=== PATIENT | female | born 1965 | race Caucasian/White ===

== ENCOUNTER 2023-03-30 07:37 | Outpatient (OUT) | payer BC, SELFPAY ==
[2023-03-30 08:03] LABS: Basophils Percent Auto 0.6 % (0.2-2.0); Eosinophils Absolute Auto 0.1 10^3/uL (0.0-0.7); Eosinophils Percent Auto 2.1 % (0.9-7.0); Hematocrit 38.4 % (36.0-48.0); Hemoglobin 12.8 g/dL (12.0-16.0); Immature Granulocytes Abs Auto 0.02 10^3/uL (0.00-0.03); Immature Granulocytes Pct Auto 0.3 % (0.0-0.5); Lymphocytes Percent Auto 30.7 % (20.5-60.0); Mean Corpuscular HGB Conc 33.3 g/dL (29.9-35.2); Mean Corpuscular Hemoglobin 32.2 pg (26.7-34.0); Mean Corpuscular Volume 96.5 fL (81.0-99.0); Mean Platelet Volume 8.9 fL (9.5-13.5); Monocytes Absolute Auto 0.5 10^3/uL (0.3-0.8); Monocytes Percent Auto 7.8 % (1.7-12.0); Neutrophils Absolute Auto 3.8 10^3/uL (1.4-6.5); Neutrophils Percent Auto 58.5 % (43.0-75.0); Platelet Count 332 10^3/uL (150-450); Red Blood Count 3.98 10^6/uL (4.20-5.40); Red Cell Distribution Width 12.1 % (11.0-15.0); White Blood Count 6.6 10^3/uL (4.0-11.0)
[2023-03-30 08:37] LABS: Alanine Aminotransferase 37 U/L (14-59); Albumin Globulin Ratio 1.1; Albumin Level 3.6 g/dL (3.4-5.0); Alkaline Phosphatase 67 U/L (46-116); Anion Gap 10.5; Aspartate Amino Transferase 22 U/L (15-37); BUN Creatinine Ratio 13.9; Bilirubin Total 0.3 mg/dL (0.2-1.0); Calcium 9.2 mg/dL (8.5-10.1); Carbon Dioxide 26.7 mmol/L (21.0-32.0); Chloride 103 mmol/L (98-107); Chol HDL Ratio 2.6; Cholesterol 199 mg/dL (<=200); Estimated GFR (African America >60 (>=60); Estimated GFR (Non-African Ame >60 (>=60); Globulin 3.4 g/dL; Glucose 91 mg/dL (74-106); HDL Cholesterol 77 mg/dL (40-60); Potassium 4.2 mmol/L (3.5-5.1); Sodium 136 mmol/L (136-145); Thyroid Stimulating Hormone 5.784 uIU/mL (0.358-3.740); Triglycerides 112 mg/dL (<=150); VLDL CHOLESTEROL 22.4 mg/dL
--- NOTE | 2023-03-30 12:43 | MM_ITS ---
Patient: ROGER MALDONADO Exam Date: 03/30/2023 : 1965 Gender:F Ordering : DR GEORGIA JO Admission #: [id number] Family : DR. DIEGO BARBER . Order #: [id number] CLICK HERE TO VIEW EXAM RADIOLOGY REPORT PROCEDURE: MM TOMOSYNTHESIS SCREENING BI COMPARISON: MG MAMM SCREEN 3D ANA CAD, 10/03/2020. MG MAMM SCREEN 3D ANA CAD, 04/07/2022. INDICATIONS: Screening Calculator Name NCI Breast Cancer Risk Assessment Tool 5 Year Breast Cancer Risk 1.00% Lifetime Breast Cancer Risk 6.00% Personal Breast Cancer No Personal Ovarian Cancer No Treatments None Family Cancers Grandmother-maternal with breast cancer at age 80; Grandfather-paternal with colon cancer at age 80; Aunt-paternal with breast cancer at age 65. LOCATION: [facility] BREAST COMPOSITION: Scattered areas fibroglandular density. FINDINGS: DIAGNOSTIC CATEGORY 1--NEGATIVE. NO CHANGE FROM COMPARISON ASSESSMENT. Scattered benign-appearing calcifications are present. Scattered benign-appearing lymph nodes are present. RIGHT BREAST: No significant suspicious finding. LEFT BREAST: No significant suspicious finding. RECOMMENDATIONS: ROUTINE MAMMOGRAM AND CLINICAL EVALUATION IN 12 MONTHS. PLEASE NOTE: A NORMAL MAMMOGRAM DOES NOT EXCLUDE THE POSSIBILITY OF BREAST CANCER. A CLINICALLY SUSPICIOUS PALPABLE LUMP SHOULD BE BIOPSIED. Dictated by: Benedict Mauricio MD on 03/30/2023 at 14:50 Approved by: Benedict Mauricio MD on 03/30/2023 at 14:57
== END 2023-03-30 07:38 | disposition home or self-care (01) ==
PROVIDERS: PCP Family Medicine; Visit Provider Physician Assistant
DX: Z00.00 Encounter for general adult medical examination without abnormal findings (principal); E78.2 Mixed hyperlipidemia; E03.9 Hypothyroidism, unspecified; Z12.31 Encounter for screening mammogram for malignant neoplasm of breast; Z80.3 Family history of malignant neoplasm of breast; Z80.0 Family history of malignant neoplasm of digestive organs
CPT/HCPCS: 36415; 77063; 77067; 80053; 80061; 84439; 84443; 85025

== ENCOUNTER 2023-05-25 07:43 | Outpatient (OUT) | payer BC, SELFPAY | END 2023-05-25 07:44 | disposition home or self-care (01) | LOC: PST 07:43 | PROVIDERS: PCP Family Medicine; Visit Provider Surgery | DX: Z01.818 Encounter for other preprocedural examination (principal); K62.5 Hemorrhage of anus and rectum ==

== ENCOUNTER 2023-06-02 07:52 | Day surgery (SDC) | payer BC, SELFPAY ==
--- NOTE | 2023-06-02 | OP_ITS ---
OPERATION DATE: ??06/02/2023 PREOPERATIVE DIAGNOSIS:? Rectal bleeding. POSTOPERATIVE DIAGNOSIS:? Sigmoid diverticulosis as well as prominent rectal veins. PROCEDURE:?? Colonoscopy to cecum. SURGEON:? Oli Aragon M.D. ANESTHESIA:? Monitored anesthesia care. ESTIMATED BLOOD LOSS:? Zero. PREP:? Good. INDICATIONS AND CONSENT:? Patient is a 57-year-old female presents for evaluation of intermittent rectal bleeding.? Indications, risks, benefits, alternatives of proceeding with colonoscopy were explained extensively to the patient, including the risks of bleeding, colon perforation or anesthetic complications.? All of her questions were answered.? Informed consent was obtained. PROCEDURE:? Patient brought to the operating room, placed in the left lateral decubitus position.? Monitored anesthesia care was provided.? Rectal exam was performed which showed no masses or blood.? The scope was inserted into the anal canal.? Under direct visualization was advanced.? It was advanced to the cecum where cecal markings were clearly identified.? There was noted to be a good prep.? Upon withdrawal of the scope, mucosal surfaces were carefully examined.? There were no mass lesions or polyps.? No inflammatory changes or ulcerations.? There was moderate sigmoid diverticulosis without inflammatory changes or scarring.? The previous colo-colo anastomosis was widely patent.? The small blind pouch was without ulcerations or irritation.? The scope was retroflexed in the anal canal.? There was noted to be prominent rectal veins, no significant hemorrhoidal disease. ?There were some external skin tags. ?Scope was then withdrawn.? Patient tolerated procedure well, was sent to recovery room in good condition. Follow up colonoscopy for screening should be in 10 years. CC:? Dr. Chris OBRIEN
[2023-06-02 07:54] VITALS: BP 128/88; PULSE 102; RESP 16; TEMP 36.6; O2SAT 97; BMI 24.7
[2023-06-02] MEDS: LACTATED RINGER'S SOLUTION 1,000 ML 50 ML IV (08:09)
[2023-06-02 10:40] VITALS: BP 109/78; PULSE 89; RESP 14; TEMP 36.7; O2SAT 98
[2023-06-02 10:55] VITALS: BP 131/88; PULSE 85; RESP 16; O2SAT 97
[2023-06-02 11:10] VITALS: BP 145/99; PULSE 65; RESP 16; O2SAT 99
== END 2023-06-02 11:10 | disposition home or self-care (01) ==
PROVIDERS: PCP Family Medicine; Visit Provider Surgery
PROC: (CPT 45378; principal; 2023-06-02 09:05)
DX: K62.5 Hemorrhage of anus and rectum (principal); K57.30 Diverticulosis of large intestine without perforation or abscess without bleeding; H54.61 Unqualified visual loss, right eye, normal vision left eye; Z86.718 Personal history of other venous thrombosis and embolism; E03.9 Hypothyroidism, unspecified; E78.00 Pure hypercholesterolemia, unspecified; K44.9 Diaphragmatic hernia without obstruction or gangrene; Z80.0 Family history of malignant neoplasm of digestive organs; Z90.49 Acquired absence of other specified parts of digestive tract
CPT/HCPCS: 45378; J2704

== ENCOUNTER 2023-11-08 06:44 | Outpatient (OUT) | payer BC, SELFPAY ==
--- NOTE | 2023-11-08 06:47 | US_ITS ---
[address] [address] Patient Name: ROGER MALDONADO MRN: [id number] date: 1965 Sex: F Assigned Patient Location: Current Patient Location: Accession/Order Number: [id number] Exam Date: 11/08/2023 07:00 Report Date: 11/08/2023 09:32 At the request of: DIONNE POSEY Procedure: US pelvis transvaginal EXAMINATION: US pelvis transvaginal HISTORY: Postmenopausal Bleeding N95.0 COMPARISON: No relevant comparison available. FINDINGS: Transvaginal images The uterus is normal in size, contour and myometrial echotexture measuring 5.5 x 3.8 x 2.4 cm. No focal myometrial mass. The endometrium measures 2.3 mm, normal. The right ovary is normal measuring 1.5 x 1.9 x 1.1 cm. Normal color and Doppler flow The left ovary is normal measuring 1.0 x 1.0 x 1.0 cm. Normal color and Doppler flow No free fluid US/US pelvis transvaginal IMPRESSION: Normal exam Electronically authenticated by: TACO FRANKLIN Date: 11/08/2023 09:32
--- OUTSIDE RECORDS SUMMARY | 2023-11-08 06:48 | XMS_ITS | CCD ---
Author Organization [facility] Care Team Providers Care Quill Worker Name Role Phone KALPESH, DR TRUONG Attending Unavailable KALPESH, DR TRUONG Consulting Unavailable KALPESH, DR TRUONG Admitting Unavailable GONSALES, DR DELROY Mera Primary Care Unavailable GONSALES, DR DELROY Mera Primary Care Unavailable GONSALES, DR DELROY Mera Admitting Unavailable GONSALES, DR DELROY Mera Attending Unavailable GONSALES, DR DELROY Mera Consulting Unavailable DRU, DR DELROY Mera Primary Care Unavailable MARCELO, CRICKET Admitting Unavailable MARCELO, CRICKET Attending Unavailable MARCELO, CRICKET Consulting Unavailable GONSALES, DR DELROY Mera Primary Care Unavailable MARCELO, CRICKET Attending Unavailable MARCELO, CRICKET Consulting Unavailable MARCELO, CRICKET Admitting Unavailable KALPESH, DR TRUONG Admitting Unavailable KALPESH, DR TRUONG Attending Unavailable GONSALES, DR DELROY Mera Consulting Unavailable GONSALES, DR DELROY Mera Primary Care Unavailable AVON, DR TACO Melgar Consulting Unavailable KALPESH, DR TRUONG Consulting Unavailable Esperanza Ayon Unavailable CONSTANTINE GARCIA Primary Care Physician Oli NAILS Attending Unavailable ELIZABETH SHANNON Referring Unavailable Oli NAILS Attending Unavailable DIONNE POSEY Attending Unavailable Allergies Allergy Classification Reported Allergen(s) Allergy Type Date of Onset Reaction(s) Facility (1 source) benzoin resin Drug Allergy 6 [facility] Repository (2 sources) Codeine; Translations: [codeine] Drug Allergy [facility] Repository (1 source) Morpholine Analogues Drug allergy (disorder) [facility] Repository (1 source) Codeine; Translations: [codeine] Drug Allergy Gastrointestinal irritation (disorder) [facility] [place] (2 sources) metroNIDAZOLE; Translations: [metronidazole] Drug Allergy Itching (finding) [facility] [place] (2 sources) Morphine; Translations: [morphine] Drug Allergy Gastrointestinal irritation (disorder) [facility] [place] Medications Current Medications Medication Drug Class(es) Dates Sig (Normalized) Sig (Original) [id number] 200 actuat albuterol 0.09 mg/actuat metered dose inhaler (1 source) beta2-Adrenergic Agonist Start: 09-28-2022 take 2 puff(s) by inhalation every four hours as needed Albuterol Sulfate HFA 108 (90 Base) MCG/ACT 2 puffs as needed Inhalation every 4 hrs Sep, Active atorvastatin (1 source) HMG-CoA Reductase Inhibitor Atorvastatin Calcium Active azithromycin 250 mg oral tablet (1 source) Macrolide Antimicrobial Start: 09-28-2022 Azithromycin 250 MG 2 tablets on the first day, then 1 tablet daily for 4 days Orally Once a day for 5 day(s) Sep, Active levothyroxine sodium 0.1 mg oral tablet (2 sources) l-Thyroxine Start: 04-26-2023 take 1 tablet by mouth once daily levothyroxine 100 mcg (0.1 mg) Tab 100 mcg = 1 tab(s), Oral, Daily, Refills(s) 0 Start Date: 04/26/23 Status: Ordered Levothyroxine So dium Active predniSONE 20 mg oral tablet (1 source) Start: 09-28-2022 predniSONE 20 MG 1 tablet twice a day for 3 days then 1 tablet daily for 3 days Orally take with food for 6 days Sep, Active rosuvastatin calcium 5 mg oral tablet (1 source) HMG-CoA Reductase Inhibitor Start: 04-26-2023 take 1 tablet by mouth once daily at bedtime rosuvastatin 5 mg Tab 5 mg = 1 tab(s), Oral, Once a day (at bedtime), Refills(s) 0 Start Date: 04/26/23 Status: Ordered Problems Active Problems Problem Classification Problem Date Documented Date Episodic/Chronic Abdominal hernia (1 source) Hiatal hernia 04-26-2023 Episodic Blindness and vision defects (1 source) 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 Chronic obstructive pulmonary disease and bronchiectasis (1 source) Bronchitis, not specified as acute or chronic Episodic Disorders of lipid metabolism (1 source) Hypercholesterolemia 04-26-2023 Chronic Diverticulosis and diverticulitis (2 sources) Diverticular disease; Translations: [Diverticulitis] 04-26-2023 Chronic Gastrointestinal hemorrhage (2 sources) Hemorrhage of rectum and anus; Translations: [Hemorrhage of anus and rectum] Onset: 05-04-20 23 Episodic Other bone disease and musculoskeletal deformities (1 source) Other specified disorders of bone density and structure, other site; Translations: [OTH D/O BONE DEN STRUCT OTH SITE] Onset: 07-06-20 Episodic Other nutritional; endocrine; and metabolic disorders (1 source) Overweight in adulthood with body mass index of 25 or more but less than 30 05-04-2023 Episodic Other screening for suspected conditions (not mental disorders or infectious disease) (5 sources) Encounter for screening mammogram for malignant neoplasm of breast; Translations: [Encounter for screening for malignant neoplasm of cervix] Onset: 02-26-20 Episodic Phlebitis; thrombophlebitis and thromboembolism (1 source) H/O: Deep vein thrombosis 04-26-2023 Episod ic Residual codes; unclassified (4 sources) Asymptomatic menopausal state; Translations: [ASYMPTOMATIC MENOPAUSAL STATE] Onset: 04-07-20 Episodic Residual codes; unclassified (1 source) Family history of malignant neoplasm of breast; Translations: [FAMILY HX MALIG NEOPLASM OF BREAST] Onset: 07-06-20 Episodic Residual codes; unclassified (1 source) Family history of malignant neoplasm of digestive organs; Translations: [FAM HX MALIG NEOPLASM DIGESTIV ORGN] Onset: 07-06-20 Episodic Thyroid disorders (5 sources) Hypothyroidism, unspecified; Translations: [Hypothyroidism] Onset: 07-09-20 Chronic Unclassified (3 sources) CONTACT W/AND (SUSP) EXPOS COVID-19; Translations: [CONTACT W/AND (SUSP) EXPOS COVID-19] Onset: 04-22-20 Viral infection (1 source) COVID-19; Translations: [COVID-19] Onset: 04-15-20 Past or Other Problems Problem Classification Problem Date Documented Date Episodic/Chronic Immunizations and screening for infectious disease (1 source) Encounter for screening for human papillomavirus (HPV); Translations: [ENC SCREENING HUMAN PAPILLOMAVIRUS] Onset: 02-26-2022 Episodic Unclassified (1 source) CONTACT W/AND (SUSP) EXPOS COVID-19; Translations: [CONTACT W/AND (SUSP) EXPOS COVID-19] Onset: 04-19-2022 Results Test Name Value Interpretation Reference Range Facility Outside Colonoscopyon 2022 Outside Colonoscopy [id number] #1.00TIFF [facility] Reminderson 06-03-2023 Reminders - From: Arabella Duffy LPN To: N - Clinical; Sent: 06/03/2023 14:12:11 EST Show up: 05/02/2033 07:00:00 EDT Subject: colonoscopy recall Due Date/Time: 06/02/2033 07:00:00 EST Reminder/Recall Patient due for screening colonoscopy 06/02/2033. [facility] Insurance Correspondenceon 1 Insurance Correspondence [id number] 9#1.00TIFF [facility] Consent for Procedure/Surger yon 05-05-2023 Consent for Procedure/Surgery [id number] 9#1.00TIFF [facility] Facesheeton 05-05-2023 Facesheet [id number] 4#1.00TIFF [facility] Ambulatory Visit Summaryon 1 Ambulatory Visit Summary ROGER DELGADO :1965 Visit Date:05/04/2023 Ambulatory Visit Instructions Your Care Team Attending Physician - JAQUI MEJIA, Oli Catalan Primary Care Physician - JOSE MEJIA, CONSTANTINE Cameron Referring Physician - ELIZABETH BAUTISTA This Is Your Medications List Contact prescribing physician if questions or concerns levothyroxine (levothyroxine 100 mcg (0.1 mg) Tab) rosuvastatin (rosuvastatin 5 mg Tab) Procedures Performed Large bowel resection (05/30/2008), Colonoscopy (12/30/2007), Appendectomy, Arthroscopy of shoulder, Breast augmentation, Carpal tunnel release, Carpal tunnel release, section, section, section, section, Insertion of bilateral silicone gel-filled breast implants, Open repair of glenoid labrum, Release of trigger thumb, Removal of intact implants of both breasts, Rupture biceps tendon, Tubal ligation. Discharge Vitals Heart Rate (Peripheral) 80 Respiratory Rate 16 Blood Pressure 128/90 Height 157.48 cm Height 62 in Weight 64 kg Weight 140.8 lb BMI 25.81 Medications What How Much When Instructions Unchanged levothyroxine (levothyroxine 100 mcg (0.1 mg) Tab) 1 Tablets By Mouth Every day Contact prescribing physician if questions or concerns Unchanged rosuvastatin (rosuvastatin 5 mg Tab) 1 Tablets By Mouth Once a day (at bedtime) Contact prescribing physician if questions or concerns Allergies Flagyl (Itching) codeine (Gastrointestinal upset) morphine (Gastrointestinal upset) Problems Ongoing - Any problem that you are currently receiving treatment for. Blind right eye BMI 25.0-25.9,adult Diverticulitis Diverticulosis Hiatal hernia History of DVT (deep vein thrombosis) Hypercholesterolemia Hypothyroidism Normal [facility] Historical Records Officeon 04-19-2023 Historical Records Office [id number] #1.00CD:127 Normal [facility] Physician Referralon 023 Physician Referral [id number]# 1.00CD:127 [facility] Physician Referral [id number] #1.00CD:127 Normal [facility] Outside Mammographyon 2022 Outside Mammography [id number] #1.00CD:127 Normal [facility] Physician Referralon 023 Physician Referral [id number] #1.00CD:127 Normal [facility] FREE T3on 07-09-2022 FREE T3 2.65 pg/mlL Normal 2.18-3.98 [facility] Comment on above: Performed By: #### F T3 ####[facility] [address] [place], [place] [address]FsSahil Barth FREE T4on 07-09-2022 Free T4 [Mass/Vol] 1.14 ng/dL Normal 0.76-1.46 [facility] Comment on above: Performed By: #### F T4 #### [facility] [address] [place], [place] [address] Dr. Rossana Barth Covid-19 PCR (CVDTBH)on SARS-CoV-2 (COVID-19) RNA JAY+probe Ql (Unsp spec) Not detected Normal NOT DETECTED [facility] Comment on above: Result Comment: When diagnostic testing is negative, the possibility of a false negative should be considered in the context of a patient's recent exposures and the presence of clinical signs and symptoms consistent with SARS-CoV-2. This test is not yet approved or cleared by the [place] FDA. When there are no FDA-approved or cleared tests available, and other criteria are met, FDA can make tests available under an emergency access mechanism called an Emergency Use Authorization (EUA). The EUA for this test is supported by the [place] of Health and Human Service's declaration that circumstances exist to justify the emergency use of in vitro diagnostics for the detection and/or diagnosis of the virus that causes COVID-19. This EUA will remain in effect for the duration of the COVID-19 declaration justifying emergency of IVDs, unless it is terminated or revoked by the FDA (after which the test may no longer be used). Performed By: #### C VDTBH ####[facility] [address] [place], [place] [address]UpDr. Rossana Barth Covid-19 PCR (CVDTB)on 03-20 SARS-CoV-2 (COVID-19) RNA JAY+probe Ql (Unsp spec) Detected Critically abnormal NOT DETECTED [facility] Comment on above: Result Comment: This test is not yet approved or cleared by the [place] FDA. When there are no FDA-approved or cleared tests available, and other criteria are met, FDA can make tests available under an emergency access mechanism called an Emergency Use Authorization (EUA). The EUA for this test is supported by the [place] of Health and Human Service's declaration that circumstances exist to justify the emergency use of in vitro diagnostics for the detection and/or diagnosis of the virus that causes COVID-19. This EUA will remain in effect for the duration of the COVID-19 declaration justifying emergency of IVDs, unless it is terminated or revoked by the FDA (after which the test may no longer be used). Performed By: #### C VDTB #### [facility] [address] [place] [address] Dr. Rossana Barth CBC AUTO DIFFon 04-07-2022 BASO # 0.1 103/ul Normal 0.0-0.1 [facility] Comment on above: Performed By: #### C BC #### [facility] [address] [place] [address] Dr. Rossana Barth Basophils/100 WBC (Bld) 1.1 % Normal 0.2-2.0 [facility] Comment on above: Performed By: #### C BC #### [facility] [address] [place] [address] Dr. Rossana Barth EO # 0.1 103/ul Normal 0.0-0.7 [facility] Comment on above: Performed By: #### C BC #### [facility] [address] [place] [address] Dr. Rossana Barth Eosinophils/100 WBC (Bld) 2.6 % Normal 0.9-7.0 [facility] Comment on above: Performed By: #### C BC #### [facility] [address] [place] [address] Dr. Rossana Barth Erythrocyte distribution width (RBC) [Ratio] 12.5 % Normal 11.0-15.0 [facility] Comment on above: Performed By: #### C BC #### [facility] [address] [place] [address] Dr. Rossana Barth Hematocrit (Bld) [Volume fraction] 40.2 % Normal 36.0-48.0 [facility] Comment on above: Performed By: #### C BC #### [facility] [address] [place] [address] Dr. Rossana Barth Hemoglobin (Bld) [Mass/Vol] 13.3 g/dL Normal 12.0-16.0 [facility] Comment on above: Performed By: #### C BC #### [facility] [address] [place] [address] Dr. Rossana Barth IG # 0.01 10e3/ul Normal 0.00-0.03 [facility] Comment on above: Performed By: #### C BC #### [facility] [address] [place] [address] Dr. Rossana Barth IG % 0.2 % Normal 0.0-0.5 [facility] Comment on above: Performed By: #### C BC #### [facility] [address] [place] [address] Dr. Rossana Barth LYMPH # 2.1 103/ul Normal 1.2-3.8 [facility] Comment on above: Performed By: #### C BC #### [facility] [address] [place] [address] Dr. Rossana Barth Lymphocytes/100 WBC (Bld) 44.7 % Normal 20.5-60.0 [facility] Comment on above: Performed By: #### C BC #### [facility] [address] [place] [address] Dr. Rossana Barth MANUAL DIFF REQ NO Normal [facility] Comment on above: Performed By: #### C BC #### [facility] [address] [place] [address] Dr. Rossana Barth MCH (RBC) [Entitic mass] 32.4 pg Normal 26.7-34.0 [facility] Comment on above: Performed By: #### C BC #### [facility] [address] [place] [address] Dr. Rossana Barth MCHC (RBC) [Mass/Vol] 33.1 g/dL Normal 29.9-35.2 [facility] Comment on above: Performed By: #### C BC #### [facility] [address] [place] [address] Dr. Rossana Barth MCV (RBC) [Entitic vol] 98.0 fL Normal 81.0-99.0 [facility] Comment on above: Performed By: #### C BC #### [facility] [address] [place] [place] [address] [address] Rossana Barth MONO # 0.5 103/ul Normal 0.3-0.8 [facility] Comment on above: Performed By: #### C BC #### [facility] [address] [place] [address] [address] Rossana Barth Monocytes/100 WBC (Bld) 9.8 % Normal 1.7-12.0 [facility] Comment on above: Performed By: #### C BC #### [facility] [address] [place] [address] [address] Rossana Barth NEUT # 2.0 103/ul Normal 1.4-6.5 [facility] Comment on above: Performed By: #### C BC #### [facility] [address] [place] [address] Dr. Rossana Barth Neutrophils/100 WBC (Bld) 41.6 % Critically low 43.0-75.0 [facility] Comment on above: Performed By: #### C BC #### [facility] [address] [place] [address] [address] Rossana Barth Platelet mean volume (Bld) [Entitic vol] 9.1 fL Critically low 9.5-13.5 [facility] Comment on above: Performed By: #### C BC #### [facility] [address] [place] [address] Dr. Rossana Barth PLT 305 103/ul Normal 150-450 [facility] Comment on above: Performed By: #### C BC #### [facility] [address] [place] [address] [address] Rossana Barth RBC 4.10 106/ul Critically low 4.20-5.40 [facility] Comment on above: Performed By: #### C BC #### [facility] [address] [place] [address] [address] Rossana Barth WBC 4.7 103/ul Normal 4.0-11.0 [facility] Comment on above: Performed By: #### C BC #### [facility] [address] [place] [address] Dr. Rossana Barth GLYCOHEMOGLOBIN A1Con 2021 ADA RECOMMENDATION SEE BELOW Normal [facility] Comment on above: Result Comment: ADA RECOMMENDED LIMIT 4.0 - 6.0 ADA THERAPEUTIC TARGET < 7.0 ACTION SUGGESTED > 7.0 Performed By: #### A 1C #### [facility] [address] [place] [address] Dr. Rossana Barth Glucose [Mass/Vol] 111 mg/dL Normal [facility] Comment on above: Performed By: #### A 1C #### [facility] [address] [place] [address] Dr. Rossana Barth HbA1c (Bld) [Mass fraction] 5.5 % Normal 4.5-6.2 [facility] Comment on above: Performed By: #### A 1C #### [facility] [address] [place] [address] Dr. Rossana Barth LIPID PROFILEon 04-07-2022 CHOL-HDL RATIO NORM SEE BELOW Normal [facility] Comment on above: Result Comment: 3.3 - 4.4 LOW RISK 4.4 - 7.1 AVERAGE RISK 7.1 - 11.0 MODERATE RISK >11.0 HIGH RISK Performed By: #### T SH, LIPID, CMP #### [facility] [address] [place] [address] Dr. Rossana Barth Cholesterol [Mass/Vol] 257 mg/dL Critically high <=200 [facility] Comment on above: Performed By: #### T SH, LIPID, CMP #### [facility] [address] [place] [address] Dr. Rossana Barth Cholesterol in HDL [Mass/Vol] 96 mg/dL Critically high 40-60 [facility] Comment on above: Performed By: #### T SH, LIPID, CMP #### [facility] [address] [place] [address] Dr. Rossana Barth Cholesterol in LDL [Mass/Vol] 133.2 mg/dL Normal [facility] Comment on above: Performed By: #### T SH, LIPID, CMP #### [facility] [address] [place] [address] [address] Rossana Barth Cholesterol.total/Cho lesterol in HDL [Mass ratio] 2.7 {ratio} Normal [facility] Comment on above: Performed By: #### T SH, LIPID, CMP #### [facility] [address] [place] [address] [address] Rossana Barth HDL NORMAL > or = 60 mg/dl - LOW CARDIOVASCULAR RISK <40 mg/dl - HIGH CARDIOVASCULAR RISK Normal [facility] Comment on above: Performed By: #### T EMMETT, LIPID, CMP #### [facility] [address] [place] [address] [address] Rossana Barth LDL CALC NORMAL SEE BELOW Normal [facility] Comment on above: Result Comment: <100 mg/dl OPTIMAL 100 - 129 mg/dl NEAR OR ABOVE OPTIMAL 130 - 159 mg/dl BORDERLINE HIGH 160 - 189 mg/dl HIGH >190 mg/dl VERY HIGH Performed By: #### T EMMETT, LIPID, CMP #### [facility] [address] [place] [address] [address] Rossana Barth Triglyceride [Mass/Vol] 139 mg/dL Normal <=150 [facility] Comment on above: Performed By: #### T EMMETT, LIPID, CMP #### [facility] [address] [place] [address] [address] Rossana Barth VLDL CALC 27.8 mg/dL Normal [facility] Comment on above: Performed By: #### T EMMETT, LIPID, CMP #### [facility] [address] [place] [address] [address] Rossana Barth MG MAMM SCREEN 3D ANA CADon 04-07-2022 MG MAMM SCREEN 3D ANA CAD Patient: ROGER DELGADO Exam Date: 04/07/2022 : 1965 Gender:F Ordering : DR DIONNE POSEY . Admission #: [id number] Family : DR DELROY GONSALES . Order #: [id number] CLICK HERE TO VIEW EXAM RADIOLOGY REPORT PROCEDURE: MAMMOGRAM SCREENING 3D BILATERAL CAD COMPARISON: MG MAMM SCREEN 3D ANA CAD, 10/03/2020. INDICATIONS: Screening mammography Calculator Name NCI Breast Cancer Risk Assessment Tool 5 Year Breast Cancer Risk 1.00% Lifetime Breast Cancer Risk 6.20% Personal Breast Cancer No Personal Ovarian Cancer No Treatments None Family Cancers Grandmother-maternal with breast cancer at age 80; Grandfather-paternal with colon cancer at age 80; Aunt-paternal with breast cancer at age 65. LOCATION: [facility] BREAST COMPOSITION: Scattered areas fibroglandular density. FINDINGS: DIAGNOSTIC CATEGORY 1--NEGATIVE. NO CHANGE FROM COMPARISON ASSESSMENT. Scattered benign-appearing calcifications are present. Scattered benign-appearing lymph nodes are present. RIGHT BREAST: No significant suspicious finding. LEFT BREAST: No significant suspicious finding. RECOMMENDATIONS: ROUTINE MAMMOGRAM AND CLINICAL EVALUATION IN 12 MONTHS. PLEASE NOTE: A NORMAL MAMMOGRAM DOES NOT EXCLUDE THE POSSIBILITY OF BREAST CANCER. A CLINICALLY SUSPICIOUS PALPABLE LUMP SHOULD BE BIOPSIED. Dictated by: Taco Franklin MD on 04/07/2022 at 10:09 Approved by: Taco Franklin MD on 04/07/2022 at 10:11 Normal [facility] PROF 14(COMP METB)on 022 Albumin [Mass/Vol] 4.1 g/dL Normal 3.4-5.0 [facility] Comment on above: Performed By: #### T SH, LIPID, CMP #### [facility] [address] [place] [address] Dr. Rossana Barth Albumin/Globulin [Mass ratio] 1.3 {ratio} Normal [facility] Comment on above: Performed By: #### T SH, LIPID, CMP #### [facility] [address] [place] [address] [address] Rossana Barth ALP [Catalytic activity/Vol] 70 U/L Normal 46-116 [facility] Comment on above: Performed By: #### T SH, LIPID, CMP #### [facility] [address] [place] [address] [address] Rossana Barth ALT [Catalytic activity/Vol] 57 U/L Normal 14-59 [facility] Comment on above: Performed By: #### T SH, LIPID, CMP #### [facility] [address] [place] [address] [address] oRssana Barth Anion gap [Moles/Vol] 9.4 mmol/L Normal [facility] Comment on above: Performed By: #### T SH, LIPID, CMP #### [facility] [address] [place] [address] [address] Rossana Barth AST [Catalytic activity/Vol] 25 U/L Normal 15-37 [facility] Comment on above: Performed By: #### T SH, LIPID, CMP #### [facility] [address] [place] [address] Dr. Rossana Barth Bilirubin [Mass/Vol] 0.4 mg/dL Normal 0.2-1.0 [facility] Comment on above: Performed By: #### T SH, LIPID, CMP #### [facility] [address] [place] [address] Dr. Rossana Barth Calcium [Mass/Vol] 9.3 mg/dL Normal 8.5-10.1 [facility] Comment on above: Performed By: #### T SH, LIPID, CMP #### [facility] [address] [place] [address] Dr. Rossana Barth Chloride [Moles/Vol] 103 mmol/L Normal 98-107 [facility] Comment on above: Performed By: #### T SH, LIPID, CMP #### [facility] [address] [place] [address] Dr. Rossana Barth CO2 [Moles/Vol] 30.6 mmol/L Normal 21.0-32.0 [facility] Comment on above: Performed By: #### T SH, LIPID, CMP #### [facility] [address] [place] [address] Dr. Rossana Barth Creatinine [Mass/Vol] 0.83 mg/dL Normal 0.55-1.02 [facility] Comment on above: Performed By: #### T SH, LIPID, CMP #### [facility] [address] [place] [address] Dr. Rossana Barth EGFR-AF ANDORRAN >60 Normal >=60 [facility] Comment on above: Performed By: #### T SH, LIPID, CMP #### [facility] [address] [place] [address] Dr. Rossana Barth EGFR-NON AF ANDORRAN >60 Normal >=60 [facility] Comment on above: Performed By: #### T SH, LIPID, CMP #### [facility] [address] [place] [address] Dr. Rossana Barth Globulin (S) [Mass/Vol] 3.2 g/dL Normal [facility] Comment on above: Performed By: #### T SH, LIPID, CMP #### [facility] [address] [place] [address] Dr. Rossana Barth Glucose [Mass/Vol] 97 mg/dL Normal 74-106 [facility] Comment on above: Performed By: #### T SH, LIPID, CMP #### [facility] [address] [place] [address] Dr. Rossana Barth Potassium [Moles/Vol] 4.0 mmol/L Normal 3.5-5.1 [facility] Comment on above: Performed By: #### T EMMETT, LIPID, CMP #### [facility] [address] [place] [address] Dr. Rossana Barth Protein [Mass/Vol] 7.3 g/dL Normal 6.4-8.2 [facility] Comment on above: Performed By: #### T EMMETT, LIPID, CMP #### [facility] [address] [place] [address] Dr. Rossana Barth Sodium [Moles/Vol] 139 mmol/L Normal 136-145 [facility] Comment on above: Performed By: #### T SH, LIPID, CMP #### [facility] [address] [place] [address] Dr. Rossana Barth Urea nitrogen [Mass/Vol] 12.0 mg/dL Normal 7.0-18.0 [facility] Comment on above: Performed By: #### T SH, LIPID, CMP #### [facility] [address] [place] [address] Dr. Rossana Barth Urea nitrogen/Creatinine [Mass ratio] 14.5 mg/mg Normal [facility] Comment on above: Performed By: #### T SH, LIPID, CMP #### [facility] [address] [place] [address] Dr. Rossana Barth TSHon 04-07-2022 TSH 3.022 uIU/mL Normal 0.358-3.740 [facility] Comment on above: Performed By: #### T SH, LIPID, CMP #### [facility] [address] [place] [address] Dr. Rossana Barth XR DEXA BONE DENSITYon 04-07 XR DEXA BONE DENSITY EXAMINATION: XR DEX A BONE DENSITY, 04/07/2022 7:45 AM EDT HISTORY: Menopause present COMPARISON: 2010 TECHNIQUE: Dual-energy X-ray absorptiometry (DEXA) bone density study performed for the axial skeleton. FINDINGS: Bone mineral density AP spine L2-L4 measures 1.039 g/sq cm. T score -1.32. WHO classification: Osteopenia Lowest bone mineral density left femoral trochanter measures 0.598 g/sq cm. T score -2.2. WHO classification: Osteopenia IMPRESSION: Osteopenia. Moderate fracture risk Electronically authenticated by: TACO FRANKLIN Date: 2022-04-07 09:24 Normal [facility] PAP ACOG PANEL 2: 30 to 65on 03-02-2022 . . Normal [facility] Comment on above: Result Comment: Perf ormed at: WB Performed By: #### [id number] #### [facility] [address] [place] [address] Dr. Rossana Barth Age Gdln ACOG Testing 30-65 Normal [facility] Comment on above: Performed By: #### [id number] #### [facility] [address] [place] [address] Dr. Rossana Barth DIAGNOSIS: Comment Normal [facility] Comment on above: Result Comment: NEGA TIVE FOR INTRAEPITHELIAL LESION OR MALIGNANCY. Performed at: WB Performed By: #### [id number] #### [facility] [address] [address] [address] Rossana Barth HPV Aptima Negative Normal Negative [facility] Comment on above: Result Comment: This nucleic acid amplification test detects fourteen high-risk HPV types (16,18,31,33,35,39,45,51,52,56,58,59,66,68) without differentiation. Performed at: =G Performed By: #### [id number] #### [facility] [address] [place] [address] Dr. Rossana Barth Methodology: Comment [facility] Comment on above: Result Comment: This liquid based ThinPrep(R) pap test was screened with the use of an image guided system. Performed at: WB Performed By: #### [id number] #### [facility] [address] [place] [address] Dr. Rossana Barth Note: Comment Normal [facility] Comment on above: Result Comment: The Pap smear is a screening test designed to aid in the detection of premalignant and malignant conditions of the uterine cervix. It is not a diagnostic procedure and should not be used as the sole means of detecting cervical cancer. Both false-positive and false-negative reports do occur. . Performed at: WB Performed By: #### [id number] #### [facility] [address] [place] [address] Dr. Rossana Barth Performed by: Comment Normal [facility] Comment on above: Result Comment: Kimmie Patel Candy Vendor (ASCP) Performed at: WB Performed By: #### [id number] #### [facility] [address] [place] [address] Dr. Rossana Batrh Specimen adequacy: Comment Normal [facility] Comment on above: Result Comment: Sati sfactory for evaluation. Performed at: WB Performed By: #### [id number] #### [facility] [address] [place] [address] Dr. Rossana Barth Operative Reporton 9 Operative Report [facility] OPERATIVE RECORD [facility] [place] [id number] [facility] OSCAR SORIANO MD [id number] SURGEON: Oscar Soriano MD DATE OF OPERATION: 06/23/2019 PREOPERATIVE DIAGNOSIS: Bilateral mammary hypoplasia, status post previous saline breast augmentation subpectoral. POSTOPERATIVE DIAGNOSIS: Bilateral mammary hypoplasia, status post previous saline breast augmentation subpectoral. PROCEDURE: Bilateral saline breast implant explantation, intact SEWING INSPECTOR: Priyanka Santacruz PA-C. ANESTHESIA: General LMA. ESTIMATED BLOOD LOSS: Less than 5 mL. COMPLICATIONS: None. SPECIMEN: None. HISTORY: Ms. Delgado had bilateral breast augmentation previously through transumbilical approach, is now here for explantation since she no longer desires to have the same implants, and she understands that she will have a lot of loose, droopy skin and she will need a breast lift in the future to put the nipple-areolar complex back to the normal position. She understands the risks and benefits of the surgical procedure and wishes to proceed. DETAILS OF PROCEDURE: Patient was in the preoperative holding area. The area was marked and she was brought to the operating room and placed in the supine position. She was put to sleep and orally intubated. Sterile prep and drape were next performed. Local was planned at the inframammary crease incisions. Incision was made with a 15-blade in the right side, full-thickness through the skin. Cautery was used to dissect through the subcutaneous tissue down to the capsule. The capsule was picked up with Brown-Adsons and opened with Metzenbaum scissors. The implant was removed intact. A lighted retractor was placed in the pocket and checked and there was nothing abnormal. No bleeding, no masses, and the capsule looked normal. The wound was irrigated. The capsule was closed with running 4-0 Polysorb suture. The subcutaneous tissues were reapproximated 4 Polysorb deep dermal stitch and also 1 in the subcutaneous area. The skin was closed with a subcuticular stitch using 4-0 Biosyn. On the left side, the incision was made with a 15-blade, full-thickness through the skin. Dissection was carried through the subcutaneous tissues using electrocautery. The capsule was incised with Metzenbaum scissors and implant was removed intact. A lighted retractor was placed in the pocket and checked and there were no abnormalities. No bleeding noted, no masses, and the capsule normal. The wound was irrigated, as was done on the other side, and then the capsule closed with a running 4- 0 Polysorb. Subcutaneous tissues were reapproximated with 4-0 Polysorb, and the dermis reapproximated with 4-0 Polysorb deep dermal stitches. The skin was closed with a running subcuticular stitch using 4-0 Biosyn. It was dressed with Steri-Strips, ABDs, and she was placed in an Laurent wrap circumferentially. At this point, the procedure was terminated. Needle and sponge counts were reported as correct. She tolerated the procedure well. She was transferred to the recovery room in satisfactory condition. OSCAR SORIANO MD RS/Bridgette /[id number] Normal [facility] Vital Signs Date Time Vital Sign Value Performing Clinician Facility 05-04-2023 15:20-0400 Blood Pressure Location [facility] 05-04-2023 15:20-0400 Diastolic blood pressure 90 mm[Hg] [facility] 05-04-2023 15:20-0400 Heart rate 80 /min [facility] 05-04-2023 15:20-0400 Respiratory rate 16 /min [facility] 05-04-2023 15:20-0400 Systolic blood pressure 128 mm[Hg] [facility] 09-28-2022 16:35-0400 Body height 157.48 cm Esperanza Hernandezault Other [facility] 09-28-2022 16:35-0400 Body mass index (BMI) [Ratio] 25.6 kg/m2 Esperanza Nany Other [facility] 09-28-2022 16:35-0400 Body temperature 98.9 [degF] Esperanza Nany Other [facility] 09-28-2022 16:35-0400 Body weight 63.5 kg Esperanza Ayon Other [facility] 09-28-2022 16:35-0400 Respiratory rate 18 /min Esperanza Ayon Other [facility] 09-28-2022 16:35-0400 SaO2% (BldA) [Mass fraction] 95 % Esperanza Ayon Other [facility] Other Encounters Encounter Date Encounter Type Care Provider Facility Start: 11-04-2023 End: 11-04-2023 ambulatory DIONNE POSEY Not Available Start: 06-02-2023 End: 06-03-2023 ambulatory Oli NAILS Facility:CD:[id number] Start: 05-04-2023 End: 05-05-2023 [facility]ulatory [facility] Start: 05-04-2023 End: 05-04-2023 Patient encounter procedure Oli NAILS General Surgery [facility] Start: 03-30-2023 ambulatory Oli NAILS Facility: [facility] Start: 09-28-2022 Office outpatient ne w 20 minutes Esperanza Ayon [facility] Start: 09-28-2022 End: 09-28-2022 ambulatory Esperanza Ayon [facility] Start: 07-09-2022 End: 07-10-[address] DELROY GONSALES Facility:[facility] Start: 07-06-2022 Encounter for gynecological examination (general) (routine) without abnormal findings DR DIONNE POSEY [facility] Start: 04-19-2022 End: 04-19-[address] DELROY GONSALES Facility:[facility] Start: 04-12-2022 End: 04-12-[address] DELROY GONSALES Facility:[facility] Start: 04-07-2022 End: 04-08-[address] DIONNE POSEY Facility:[facility] Start: 02-25-2022 End: 02-25-[address] DIONNE POSEY Facility:[facility] Procedures Date Procedure Procedure Detail Performing Clinician Start: 05-30-2008 Large intestine excision Oli NILL Start: 12-30-2007 Colonoscopy Oli NI LL Appendectomy Oli NILL Arthroscopy of shoulder Toby aevioletta NILL Augmentation mammoplasty Arie havaleriy NILL Bilateral implant of silicone into breast Oli NILL section Oli NIL L Decompression of med ceci nerve Oli NILL Ligation of fallopian tube M leah NILL Open repair of gleno id labrum Oli NILL Release of trigger thumb Arie havaleriy NILL Removal of intact ma mmary implant, bilateral Oli NILL Rupture of tendon of biceps (disorder) Oli NILL Immunizations Immunization Date Immunization Notes Care Provider [facility] 12-02-2020 SARS-CoV-2 (COVID-19 ) mRNA BNT-162b2 vax Oli NILL [facility] [place] 11-07-2020 SARS-CoV-2 (COVID-19 ) mRNA BNT-162b2 vax Oli NILL [facility] [place] Payers Date Payer Category Payer [facility] [id number] 2019 Unknown [id number] 1965 Unknown [id number] 2.16.84 [id number] 1965 Unknown [id number] 2.16.84 [id number] 1965 Unknown [id number] 2.16.84 [id number] 1965 Unknown [id number] 2.16.84 [id number] 1965 Unknown [id number] 2.16.84 [id number] 1965 Unknown [id number] 2.16.8 [id number] 1965 Unknown [id number] 2.16.8 [id number] 1965 Unknown [id number] 2.16.84 [id number] Social History Date Type Detail Facility Sex Assigned At [facility] Start: 05-04-2023 Tobacco smoking status Never s moked tobacco (finding) General [facility] Tobacco smoking status Never [facility] [place] Functional Status Date Assessment Result Facility 05-04-2023 Functional Status N/A General Pe[facility] Clinical Note 05-04-2023 Note Date & Type Note Facility 05-04-2023 Note Chief Complaint consultation for rectal bleeding HPI Staff 57 year old female presents on consultation from Elizabeth JO for rectal bleeding. Reports one week episode of rectal bleeding at the end of February. Reports this was bright red and only with bowel movements. Denies rectal pain. At that time she was experiencing lower abdominal pain. Denies nausea or vomiting. Was afebrile. Reports abdominal pain and rectal bleeding resolved spontaneously. Last colonoscopy completed 12/2007 with diverticulosis and hemorrhoids. History of colon resection 05/2008 for diverticular disease. Grandfather with history of colon cancer, diagnosed in his 80's. History of Present Illness 57 yo female with h/o htn, hypercholesterolemia, referred for rectal bleeding; patient reports 1 week h/o rectal bleeding, mixed in looser stools and in toilet bowel; some dull lower abd pain; no N/V; symptoms have now resolved; last colonoscopy 2007 with sigmoid diverticulosis, had sigmoid colectomy after that; abd operations also significant for x 4 and tubal ligation; no asa or NSAID use, no SBE prophylaxis; no fmhx of GI malignancy or IBD; no tobacco use. Review of Systems PHQ Score Initial Depression Screen Score: 0 ROS - Provider Constitutional: no fever, no sweats, no weight loss. Eyes: no glasses, no blurred vision, no visual loss. ENMT: no dentures, no hoarseness, no swallowing difficulties, no hearing loss, no ear infection(s), no nose bleeds. Cardiovascular: normal blood pressure, no chest pain, regular heartbeat, no heart murmur. Respiratory: no shortness of breath, no cough, no asthma, no wheezing. Gastrointestinal: no nausea, no vomiting, no diarrhea, no constipation, no blood in stool, no change in bowel habits, no abdominal pain, no hepatitis. Genitourinary: no kidney stones, no urine infection, no dysuria. Musculoskeletal: no pain, no weakness. Skin: no changing moles, no rash, no skin lumps. Neurologic: no seizures, no epilepsy, no headache. Psychiatric: no emotional or psychiatric problem. Heme/Lymph: no bleeding problems, no anemia, no blood clots, no transfusions. Allergy/Immunologic: no swollen lymph nodes/glands, no IV drug abuse. Other: Additional ROS info: Except as noted in the above Review of Systems and in the History of Present Illness, all other systems have been reviewed and are negative or noncontributory. Physical Exam Vitals & Measurements HR: 80(Peripheral) RR: 16 BP: 128/90 HT: 62 in HT: 157.48 cm WT: 64 kg WT: 140.8 lb BMI: 25.81 HEENT: normal conjunctiva, sclera clear, no scleral icterus, EOM intact, PERRLA, oral mucosa moist without lesions. Neck: trachea midline, no mass, symmetric, no thyromegaly or nodules, no adenopathy Respiratory: lungs CTA, respirations non labored. Cardiovascular: regular rate and rhythm, no murmur, no pedal edema or varicosities. Gastrointestinal: soft, non distended, no tenderness, no masses, no palpable hernias, diastasis recti no, no hepatosplenomegaly; normal bs Lymphatic: no cervical adenopathy, no supraclavicular adenopathy. Musculoskeletal: normal gait, digits and nails without infection, nodes, cyanosis, clubbing. Skin: no rashes, no lesions, no ulcers, no subcutaneous nodules, induration. Psychiatric/Neuro: oriented to time, place, person, judgement normal, affect appropriate for age, insight intact, no focal deficits. Tests: , review of old records completed , Discussed surgical options, risks, and possible complications with patient. Assessment/Plan 1. Rectal bleeding (K62.5: Hemorrhage of anus and rectum) plan colonoscopy under anesthesia for further evaluation, informed consent obtained. Follow-up No qualifying data available Problem List/Past Medical History Ongoing Blind right eye BMI 25.0-25.9,adult Diverticulitis Diverticulosis Hiatal hernia History of DVT (deep vein thrombosis) Hypercholesterolemia Hypothyroidism Rectal bleeding Historical No qualifying data Procedure/Surgical History Large bowel resection (05/30/2008), Colonoscopy (12/30/2007), Appendectomy, Arthroscopy of shoulder, Breast augmentation, Carpal tunnel release, Carpal tunnel release, section, section, section, section, Insertion of bilateral silicone gel-filled breast implants, Open repair of glenoid labrum, Release of trigger thumb, Removal of intact implants of both breasts, Rupture biceps tendon, Tubal ligation. Medications levothyroxine 100 mcg (0.1 mg) Tab, 100 mcg= 1 tab(s), Oral, Daily rosuvastatin 5 mg Tab, 5 mg= 1 tab(s), Oral, Once a day (at bedtime) Allergies Flagyl (Itching) codeine (Gastrointestinal upset) morphine (Gastrointestinal upset) Social History Alcohol Current, Wine, 3-5 times per week, 05/04/2023 Substance Abuse - Denies Substance Abuse, 05/04/2023 Tobacco Never (less than 100 in lifetime) Tobacco Use:. Never Smokeless Tobacco Use:., 05/04/2023 Family History Diabetes mellitus ty (more content not included)... [facility] Comment on above: Result Comment: Elec tronically Signed By: JAQUI MEJIA, Oli Baca.zak\Date and Time Signed: 05/04/23 15:51 EDT Evaluation note 09-28-2022 Note Date & Type Note Facility 09-28-2022 Evaluation note Encounter Date Diagnosis Assessment Notes Sep, Bronchitis (ICD-10 - J40) Take medications as directed. Rest and increase fluid intake. Take meds with food to prevent stomach upset. Use inhaler as needed for coughing spells and SOB. It is better to use inhaler a few times a day over the next 2-3 days. Follow up with primary care provider if symptoms do not improve with treatment plan, although it may take a few weeks for the cough to go away [facility] Other Evaluation + Plan note Note Date & Type Note Facility Evaluation + Plan note No data available for this section [facility] History general Narrative - Reported Note Date & Type Note Facility History general Narrative - Reported Type Medical History Hypothyroidism Medical History high cholesterol Surgical History Retinal surgery [facility] Other Hospital Discharge instructions Note Date & Type Note Facility Hospital Discharge instructions No data available for this section [facility] Progress note Note Date & Type Note Facility Progress note No data available for this section [facility] Summary Purpose Family History No Family History Records FoundNo Family History Records Found No data available for this section No Family History Records FoundNo Family History Records Found Advance Directives No Advanced Directives Records FoundNo Advanced Directives Records FoundNo Advanced Directives Records FoundNo Advanced Directives Records Found Additional Source Comments INFORMATION SOURCE (unrecogn ized section and content) DATE CREATED AUTHOR 06/27/2019 [facility] DATE CREATED AUTHOR AUTHOR'S ORGANIZ ATION 07/16/2022 [facility] DATE CREATED AUTHOR AUTHOR'S ORGANIZ ATION 06/19/2023 [facility] DATE CREATED AUTHOR AUTHOR'S ORGANIZ ATION 11/05/2023 [facility] EPIC REASON FOR VISIT (unrecogniz ed section and content) CONGESTION, COUGH Patient Care team informatio n (unrecognized section and content) Personnel Name: CONSTANTINE GARCIA MD Address: Address: [address] [place] [address] FOR RECORDS PERTAINING TO PATIENTS WHO ARE OR HAVE BEEN ENROLLED IN A CHEMICAL DEPENDENCY/SUBSTANCEABUSE PROGRAM, SOME INFORMATION MAY BE OMITTED. This clinical summary was aggregated from multiple sources. Caution should be exercised in using it in the provision of clinical care. This summary normalizes information from multiple sources, and as a consequence, information in this document may materially change the coding, format and clinical context of patient data. In addition, data may be omitted in some cases. CLINICAL DECISIONS SHOULD BE BASED ON THE PRIMARY CLINICAL RECORDS. [employer] [facility]. provides no warranty or guarantee of the accuracy or completeness of information in this document.
== END 2023-11-08 06:45 | disposition home or self-care (01) ==
LOC: US 06:44
PROVIDERS: PCP Family Medicine; Visit Provider Obstetrics & Gynecology
DX: N95.0 Postmenopausal bleeding (principal)
CPT/HCPCS: 76830

== ENCOUNTER 2023-11-23 08:59 | Outpatient (OUT) | payer BC, SELFPAY ==
--- NOTE | 2023-11-23 09:07 | ECG_ITS ---
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
--- OUTSIDE RECORDS SUMMARY | 2023-11-23 09:17 | XMS_ITS | CCD ---
Author Organization [facility] Care Team Providers Care Upholstery Trimmer Name Role Phone KALPESH, DR TRUONG Attending [...] GONSALES, DR DELROY Mera Primary Care Unavailable CHARLESTON, DR TACO Melgar Consulting Unavailable KALPESH, DR TRUONG Consulting Unavailable Esperanza Ayon Unavailable CONSTANTINE GARCIA Primary Care Physician Oli NAILS Attending Unavailable ELIZABETH SHANNON Referring Unavailable Oli NAILS Attending Unavailable DIONNE POSEY Attending Unavailable Allergies Allergy Classification Reported Allergen(s) Allergy Type Date of Onset Reaction(s) Facility (1 source) benzoin resin Drug Allergy [address] [facility] Repository (2 sources) Codeine; Translations: [codeine] Drug Allergy [facility] Repository (1 source) Morpholine Analogues Drug allergy (disorder) [facility] Repository (1 source) Codeine; Translations: [codeine] Drug Allergy Gastrointestinal irritation (disorder) General Surgery [facility] (2 sources) metroNIDAZOLE; Translations: [metronidazole] Drug Allergy Itching (finding) General Surgery González (2 sources) Morphine; Translations: [morphine] Drug Allergy Gastrointestinal irritation (disorder) General Surgery González Medications Current Medications Medication Drug Class(es) Dates Sig (Normalized) Sig (Original) [id number] 200 actuat albuterol 0.09 mg/actuat metered dose [...] Range Facility Outside Colonoscopyon 2022 Outside Colonoscopy [id number] #1.00TIFF [facility] Reminderson 06-03-2023 Reminders - From: Arabella Duffy LPN To: N - Clinical; Sent: 06/03/2023 14:12:11 EST Show up: 05/02/2033 07:00:00 EDT Subject: colonoscopy recall Due Date/Time: 06/02/2033 07:00:00 EST Reminder/Recall Patient due for screening colonoscopy 06/02/2033. [facility] Insurance Correspondenceon 1 Insurance Correspondence [id number] 9#1.00TIFF [facility] Consent for Procedure/Surger yon 05-05-2023 Consent for Procedure/Surgery [id number] 9#1.00TIFF [facility] Facesheeton 05-05-2023 Facesheet [id number] 4#1.00TIFF [facility] Ambulatory Visit Summaryon 1 Ambulatory [...] DVT (deep vein thrombosis) Hypercholesterolemia Hypothyroidism Normal [facility] Historical Records Officeon 04-19-2023 Historical Records Office [id number] #1.00CD:127 Normal [facility] Physician Referralon 023 Physician Referral [id number]# 1.00CD:127 [facility] Physician Referral [id number] #1.00CD:127 Normal [facility] Outside Mammographyon 2022 Outside Mammography [id number] #1.00CD:127 Normal [facility] Physician Referralon 023 Physician Referral [id number] #1.00CD:127 Normal [facility] FREE T3on 07-09-2022 FREE T3 2.65 pg/mlL Normal 2.18-3.[address] [facility] Comment on above: Performed By: #### F T3 ####[facility] [id number] [place], [place] [address]KbSahil aBrth FREE T4on 07-09-2022 Free T4 [Mass/Vol] 1.14 ng/dL Normal 0.76-1.46 [facility] Comment on above: Performed By: #### F T4 #### [facility] [address] [place], [place] [address] Dr. Rossana Barth Covid-19 PCR (CVDTBH)on SARS-CoV-2 (COVID-19) RNA JAY+probe Ql (Unsp spec) Not detected Normal NOT DETECTED [facility] Comment on above: Result Comment: When diagnostic [...] for this test is supported by the Factory Worker of Health and Human Service's declaration that [...] be used). Performed By: #### C VDTBH ####[facility] [address] [place], [place] [address]EtDr. Rossana Barth Covid-19 PCR (CVDTB)on 03-20 SARS-CoV-2 (COVID-19) RNA JAY+probe Ql (Unsp spec) Detected Critically abnormal NOT DETECTED [facility] Comment on above: Result Comment: This test is not yet approved or cleared by the [place] FDA. When there are no FDA-approved or cleared tests available, and other criteria are met, FDA can make tests available under an emergency access mechanism called an Emergency Use Authorization (EUA). The EUA for this test is supported by the Factory Worker of Health and Human Service's declaration that [...] used). Performed By: #### C VDTB #### [facility] [address] [place] [address] Dr. Rossana Barth CBC AUTO DIFFon 04-07-2022 BASO # 0.1 103/ul Normal 0.0-0.1 [facility] Comment on above: Performed By: #### C BC #### [facility] [address] [place] [address] Dr. Rossana Barth Basophils/100 WBC (Bld) 1.1 % Normal 0.2-2.0 [facility] Comment on above: Performed By: #### C BC #### [facility] [address] [place] [address] Dr. Rossana Barth EO # 0.1 103/ul Normal 0.0-0.[address] [facility] Comment on above: Performed By: #### C BC #### [facility] [address] [place] [address] Dr. Rossana Barth Eosinophils/100 WBC (Bld) 2.6 % Normal 0.9-7.0 [facility] Comment on above: Performed By: #### C BC #### [facility] [address] [place] [address] Dr. Rossana Barth Erythrocyte distribution width (RBC) [Ratio] 12.5 % Normal 11.0-15.[address] [facility] Comment on above: Performed By: #### C BC #### [facility] [address] [place] [address] Dr. Rossana Barth Hematocrit (Bld) [Volume fraction] 40.2 % Normal 36.0-48.0 [facility] Comment on above: Performed By: #### C BC #### [facility] [address] [place] [address] Dr. Rossana Barth Hemoglobin (Bld) [Mass/Vol] 13.3 g/dL Normal 12.0-16.0 [facility] Comment on above: Performed By: #### C BC #### [facility] [address] [place] [address] Dr. Rossana Barth IG # 0.01 10e3/ul Normal 0.00-0.03 [facility] Comment on above: Performed By: #### C BC #### [facility] [address] [place] [address] Dr. Rossana Barth IG % 0.2 % Normal 0.0-0.5 [facility] Comment on above: Performed By: #### C BC #### [facility] [address] [place] [address] Dr. Rossana Barth LYMPH # 2.1 103/ul Normal 1.2-3.8 [facility] Comment on above: Performed By: #### C BC #### [facility] [address] [place] [address] Dr. Rossana Barth Lymphocytes/100 WBC (Bld) 44.7 % Normal 20.5-60.0 [facility] Comment on above: Performed By: #### C BC #### [facility] [address] [place] [address] Dr. Rossana Brath MANUAL DIFF REQ NO Normal [facility] Comment on above: Performed By: #### C BC #### [facility] [address] [place] [address] Dr. Rossana Barth MCH (RBC) [Entitic mass] 32.4 pg Normal 26.7-34.0 [facility] Comment on above: Performed By: #### C BC #### [facility] [address] [place] [address] Dr. Rossana Barth MCHC (RBC) [Mass/Vol] 33.1 g/dL Normal 29.9-35.2 [facility] Comment on above: Performed By: #### C BC #### [facility] [address] [place] [address] Dr. Rossana Barth MCV (RBC) [Entitic vol] 98.0 fL Normal 81.0-99.0 [facility] Comment on above: Performed By: #### C BC #### [facility] [address] [place] [address] [address] Rossana Barth MONO # 0.5 103/ul Normal 0.3-0.8 [facility] Comment on above: Performed By: #### C BC #### [facility] [address] [place] [address] [address] Rossana Barth Monocytes/100 WBC (Bld) 9.8 % Normal 1.7-12.0 [facility] Comment on above: Performed By: #### C BC #### [facility] [address] [place] [address] [address] Rossana Barth NEUT # 2.0 103/ul Normal 1.4-6.5 [facility] Comment on above: Performed By: #### C BC #### [facility] [address] [place] [address] Dr. Rossana Barth Neutrophils/100 WBC (Bld) 41.6 % Critically low 43.0-75.0 [facility] Comment on above: Performed By: #### C BC #### [facility] [address] [place] [address] [address] Rossana Barth Platelet mean volume (Bld) [Entitic vol] 9.1 fL Critically low 9.5-13.5 [facility] Comment on above: Performed By: #### C BC #### [facility] [address] [place] [address] Dr. Rossana Barth PLT 305 103/ul Normal 150-[address] [facility] Comment on above: Performed By: #### C BC #### [facility] [address] [place] [address] [address] Rossana Barth RBC 4.10 106/ul Critically low 4.20-5.40 [facility] Comment on above: Performed By: #### C BC #### [facility] [address] [place] [address] [address] Rossana Barth WBC 4.7 103/ul Normal 4.0-11.[address] [facility] Comment on above: Performed By: #### C BC #### [facility] [address] [place] [address] Dr. Rossana Barth GLYCOHEMOGLOBIN A1Con 2021 ADA RECOMMENDATION SEE BELOW Normal [facility] Comment on above: Result Comment: ADA RECOMMENDED LIMIT 4.0 - 6.0 ADA THERAPEUTIC TARGET < 7.0 ACTION SUGGESTED > 7.0 Performed By: #### A 1C #### [facility] [address] [place] [address] Dr. Rossana Barth Glucose [Mass/Vol] 111 mg/dL Normal [facility] Comment on above: Performed By: #### A 1C #### [facility] [address] [place] [address] Dr. Rossana Barth HbA1c (Bld) [Mass fraction] 5.5 % Normal 4.5-6.2 [facility] Comment on above: Performed By: #### A 1C #### [facility] [address] [place] [address] Dr. Rossana Barth LIPID PROFILEon 04-07-2022 CHOL-HDL RATIO NORM SEE BELOW Normal [facility] Comment on above: Result Comment: 3.3 - 4.4 LOW RISK 4.4 - 7.1 AVERAGE RISK 7.1 - 11.0 MODERATE RISK >11.0 HIGH RISK Performed By: #### T SH, LIPID, CMP #### [facility] [address] [place] [address] Dr. Rossana Barth Cholesterol [Mass/Vol] 257 mg/dL Critically high <=200 [facility] Comment on above: Performed By: #### T SH, LIPID, CMP #### [facility] [address] [place] [address] Dr. Rossana Barth Cholesterol in HDL [Mass/Vol] 96 mg/dL Critically high 40-60 [facility] Comment on above: Performed By: #### T SH, LIPID, CMP #### [facility] [address] [place] [address] Dr. Rossana Barth Cholesterol in LDL [Mass/Vol] 133.2 mg/dL Normal [facility] Comment on above: Performed By: #### T SH, LIPID, CMP #### [facility] [address] [place] [address] [address] Rossana Barth Cholesterol.total/Cho lesterol in HDL [Mass ratio] 2.7 {ratio} Normal [facility] Comment on above: Performed By: #### T SH, LIPID, CMP #### [facility] [address] [place] [address] [address] Rossana Barth HDL NORMAL > or = 60 mg/dl - LOW CARDIOVASCULAR RISK <40 mg/dl - HIGH CARDIOVASCULAR RISK Normal [facility] Comment on above: Performed By: #### T EMMETT, LIPID, CMP #### [facility] [address] [place] [address] [address] Rossana Barth LDL CALC NORMAL SEE BELOW Normal [facility] Comment on above: Result Comment: <100 mg/dl OPTIMAL 100 - 129 mg/dl NEAR OR ABOVE OPTIMAL 130 - 159 mg/dl BORDERLINE HIGH 160 - 189 mg/dl HIGH >190 mg/dl VERY HIGH Performed By: #### T EMMETT, LIPID, CMP #### [facility] [address] [place] [address] [address] Rossana Barth Triglyceride [Mass/Vol] 139 mg/dL Normal <=150 [facility] Comment on above: Performed By: #### T EMMETT, LIPID, CMP #### [facility] [address] [place] [address] [address] Rossana Barth VLDL CALC 27.8 mg/dL Normal [facility] Comment on above: Performed By: #### T EMMETT, LIPID, CMP #### [facility] [address] [place] [address] [address] Rossana Barth MG MAMM SCREEN 3D ANA CADon 04-07-2022 MG MAMM SCREEN 3D ANA CAD Patient: ROGER DELGADO Exam Date: 04/07/2022 : 1965 Gender:F Ordering : DR DIONNE POSEY . Admission #: [id number] Family : DR DELROY GONSALES . Order #: [id number] CLICK HERE TO VIEW EXAM RADIOLOGY REPORT [...] breast cancer at age 64. LOCATION: [facility] BREAST COMPOSITION: Scattered areas fibroglandular density. FINDINGS: [...] MD on 04/07/2022 at 10:11 Normal [facility] PROF 14(COMP METB)on 022 Albumin [Mass/Vol] 4.1 g/dL Normal 3.4-5.0 [facility] Comment on above: Performed By: #### T SH, LIPID, CMP #### [facility] [address] [place] [address] Dr. Rossana Barth Albumin/Globulin [Mass ratio] 1.3 {ratio} Normal [facility] Comment on above: Performed By: #### T SH, LIPID, CMP #### [facility] [address] [place] [address] [address] Rossana Barth ALP [Catalytic activity/Vol] 70 U/L Normal 46-116 [facility] Comment on above: Performed By: #### T SH, LIPID, CMP #### [facility] [address] [place] [address] [address] Rossana Barth ALT [Catalytic activity/Vol] 57 U/L Normal 14-59 [facility] Comment on above: Performed By: #### T SH, LIPID, CMP #### [facility] [address] [place] [address] [address] Rossana Barth Anion gap [Moles/Vol] 9.4 mmol/L Normal [facility] Comment on above: Performed By: #### T SH, LIPID, CMP #### [facility] [address] [place] [address] [address] Rossana Barth AST [Catalytic activity/Vol] 25 U/L Normal 15-37 [facility] Comment on above: Performed By: #### T SH, LIPID, CMP #### [facility] [address] [place] [address] Dr. Rossana Barth Bilirubin [Mass/Vol] 0.4 mg/dL Normal 0.2-1.0 [facility] Comment on above: Performed By: #### T SH, LIPID, CMP #### [facility] [address] [place] [address] Dr. Rossana Barth Calcium [Mass/Vol] 9.3 mg/dL Normal 8.5-10.1 [facility] Comment on above: Performed By: #### T SH, LIPID, CMP #### [facility] [address] [place] [address] Dr. Rossana Barth Chloride [Moles/Vol] 103 mmol/L Normal 98-107 [facility] Comment on above: Performed By: #### T SH, LIPID, CMP #### [facility] [address] [place] [address] Dr. Rossana Barth CO2 [Moles/Vol] 30.6 mmol/L Normal 21.0-32.[address] [facility] Comment on above: Performed By: #### T SH, LIPID, CMP #### [facility] [address] [place] [address] Dr. Rossana Barth Creatinine [Mass/Vol] 0.83 mg/dL Normal 0.55-1.02 [facility] Comment on above: Performed By: #### T SH, LIPID, CMP #### [facility] [address] [place] [address] Dr. Rossana Barth EGFR-AF THAI >60 Normal >=60 [facility] Comment on above: Performed By: #### T SH, LIPID, CMP #### [facility] [address] [place] [address] Dr. Rossana Barth EGFR-NON AF THAI >60 Normal >=60 [facility] Comment on above: Performed By: #### T SH, LIPID, CMP #### [facility] [address] [place] [address] Dr. Rossana Barth Globulin (S) [Mass/Vol] 3.2 g/dL Normal [facility] Comment on above: Performed By: #### T SH, LIPID, CMP #### [facility] [address] [place] [address] Dr. Rossana Barth Glucose [Mass/Vol] 97 mg/dL Normal 74-106 [facility] Comment on above: Performed By: #### T SH, LIPID, CMP #### [facility] [address] [place] [address] Dr. Rossana Barth Potassium [Moles/Vol] 4.0 mmol/L Normal 3.5-5.[address] [facility] Comment on above: Performed By: #### T EMMETT, LIPID, CMP #### [facility] [address] [place] [address] Dr. Rossana Barth Protein [Mass/Vol] 7.3 g/dL Normal 6.4-8.2 [facility] Comment on above: Performed By: #### T EMMETT, LIPID, CMP #### [facility] [address] [place] [address] Dr. Rossana Barth Sodium [Moles/Vol] 139 mmol/L Normal 136-145 [facility] Comment on above: Performed By: #### T SH, LIPID, CMP #### [facility] [address] [place] [address] Dr. Rossana Barth Urea nitrogen [Mass/Vol] 12.0 mg/dL Normal 7.0-18.[address] [facility] Comment on above: Performed By: #### T SH, LIPID, CMP #### [facility] [address] [place] [address] Dr. Rossana Barth Urea nitrogen/Creatinine [Mass ratio] 14.5 mg/mg Normal [facility] Comment on above: Performed By: #### T SH, LIPID, CMP #### [facility] [address] [place] [address] Dr. Rossana Barth TSHon 04-07-2022 TSH 3.022 uIU/mL Normal 0.358-3.740 [facility] Comment on above: Performed By: #### T SH, LIPID, CMP #### [facility] [address] [place] [address] Dr. Rossana Barth XR DEXA BONE DENSITYon [...] by: TACO FRANKLIN Date: 2022-04-07 09:24 Normal [facility] PAP ACOG PANEL 2: 30 to 65on 03-02-2022 . . Normal [facility] Comment on above: Result Comment: Perf ormed at: WB Performed By: #### [id number] #### [facility] [address] [place] [address] Dr. Rossana Barth Age Gdln ACOG Testing 30-65 Normal [facility] Comment on above: Performed By: #### [id number] #### [facility] [address] [place] [address] Dr. Rossana Barth DIAGNOSIS: Comment Normal [facility] Comment on above: Result Comment: NEGA TIVE FOR INTRAEPITHELIAL LESION OR MALIGNANCY. Performed at: WB Performed By: #### [id number] #### [facility] [address] [place] [address] [address] Rossana Barth HPV Aptima Negative Normal Negative [facility] Comment on above: Result Comment: This nucleic acid amplification test detects fourteen high-risk HPV types (16,18,31,33,35,39,45,51,52,56,58,59,66,68) without differentiation. Performed at: =G Performed By: #### [id number] #### [facility] [address] [place] [address] Dr. Rossana Barth Methodology: Comment [facility] Comment on above: Result Comment: This liquid based ThinPrep(R) pap test was screened with the use of an image guided system. Performed at: WB Performed By: #### [id number] #### [facility] [address] [place] [address] Dr. Rossana Barth Note: Comment Normal [facility] Comment on above: Result Comment: The Pap smear is a screening test designed to aid in the detection of premalignant and malignant conditions of the uterine cervix. It is not a diagnostic procedure and should not be used as the sole means of detecting cervical cancer. Both false-positive and false-negative reports do occur. . Performed at: WB Performed By: #### [id number] #### [facility] [address] [place] [address] Dr. Rossana Barth Performed by: Comment Normal [facility] Comment on above: Result Comment: Kimmie Patel Qual Field Manager (ASCP) Performed at: WB Performed By: #### [id number] #### [facility] [address] [place] [address] Dr. Rossana Barth Specimen adequacy: Comment Normal [facility] Comment on above: Result Comment: Sati sfactory for evaluation. Performed at: WB Performed By: #### [id number] #### [facility] [address] [place] [address] Dr. Rossana Barth Operative Reporton 9 Operative Report [facility] OPERATIVE RECORD ROGER DELGADO [facility] [phone] [facility] OSCAR SORIANO MD [id number] SURGEON: Oscar Soriano MD DATE OF OPERATION: 06/23/2019 PREOPERATIVE DIAGNOSIS: Bilateral mammary hypoplasia, status post previous saline breast augmentation subpectoral. POSTOPERATIVE DIAGNOSIS: Bilateral mammary hypoplasia, status post previous saline breast augmentation subpectoral. PROCEDURE: Bilateral saline breast implant explantation, intact SAMPLE PULLER: Priyanka Santacruz PA-C. ANESTHESIA: General LMA. ESTIMATED [...] in satisfactory condition. OSCAR SORIANO MD RS/Bridgette /[id number] Normal [facility] Vital Signs Date Time Vital Sign Value Performing Clinician Facility 05-04-2023 15:20-0400 Blood Pressure Location [facility] 05-04-2023 15:20-0400 Diastolic blood pressure 90 mm[Hg] [facility] 05-04-2023 15:20-0400 Heart rate 80 /min [facility] 05-04-2023 15:20-0400 Respiratory rate 16 /min [facility] 05-04-2023 15:20-0400 Systolic blood pressure 128 mm[Hg] [facility] 09-28-2022 16:35-0400 Body height 157.48 cm Esperanza Hernandezault Other [facility] Other 09-28-2022 16:35-0400 Body mass index (BMI) [Ratio] 25.6 kg/m2 Esperanza Nany Other [facility] Other 09-28-2022 16:35-0400 Body temperature 98.9 [degF] Esperanza Nany Other [facility] Other 09-28-2022 16:35-0400 Body weight 63.5 kg Esperanza Ayon Other [facility] Other 09-28-2022 16:35-0400 Respiratory rate 18 /min Esperanza Ayon Other [facility] Other 09-28-2022 16:35-0400 SaO2% (BldA) [Mass fraction] 95 % Esperanza Ayon Other [facility] Other Encounters Encounter Date Encounter Type Care Provider Facility Start: 11-04-2023 End: 11-04-2023 ambulatory DIONNE POSEY Not Available Start: 06-02-2023 End: 06-03-2023 ambulatory Oli NAILS Facility:CD:[id number] Start: 05-04-2023 End: 05-05-2023 [facility] Start: 05-04-2023 End: 05-04-2023 Patient encounter procedure Oli NAILS General Surgery Nill/Said González Start: 03-30-2023 ambulatory Oli NAILS Facility: [facility] Start: 09-28-2022 Office outpatient ne w 20 minutes Esperanza Ayon [facility] Start: 09-28-2022 End: 09-28-2022 ambulatory Esperanza Ayon Other [facility] Start: 07-09-2022 End: 07-10-[address] DELROY GONSALES Facility:[facility] Start: 07-06-2022 Encounter for gynecological examination (general) (routine) without abnormal findings DR DIONNE POSEY [facility] Start: 04-19-2022 End: 04-19-[address] DELROY [...] Immunization Date Immunization Notes Care Provider Fa [facility] 12-02-2020 SARS-CoV-2 (COVID-19 ) mRNA BNT-162b2 vax Oli NILL [facility] [place] 11-07-2020 SARS-CoV-2 (COVID-19 ) mRNA BNT-162b2 vax Oli NILL [facility] [place] Payers Date Payer Category Payer [facility] [id number] 2019 Unknown [id number] 1964 Unknown [id number] 2.16.84 [id number] 1964 Unknown [id number] 2.16.84 [id number] 1964 Unknown [id number] 2.16.84 [id number] 1964 Unknown [id number] 2.16.84 [id number] 1964 Unknown [id number] 2.16.84 [id number] 1964 Unknown [id number] 2.16.8 [id number] 1964 Unknown [id number] 2.16.8 [id number] 1964 Unknown [id number] 2.16.84 [id number] Social History Date Type Detail Facility Sex Assigned At [facility] Start: 05-04-2023 Tobacco smoking status Never s moked tobacco (finding) [facility] Tobacco smoking status Never [facility] [place] Functional Status Date Assessment Result Facility 05-04-2023 Functional Status N/A [facility] Clinical Note 05-04-2023 Note Date & Type [...] Diabetes mellitus ty (more content not included)... [facility] Comment on above: Result Comment: Elec tronically [...] weeks for the cough to go away [facility] Other Evaluation + Plan note Note Date & Type Note Facility Evaluation + Plan note No data available for this section General Surgery [employer] History general Narrative - Reported Note Date & Type Note Facility History general Narrative - Reported Type Medical History Hypothyroidism Medical History high cholesterol Surgical History Retinal surgery [facility] Other Hospital Discharge instructions Note Date & Type Note Facility Hospital Discharge instructions No data available for this section General Surgery [employer] Progress note Note Date & Type Note Facility Progress note No data available for this section General Surgery [employer] Summary Purpose Family History No Family History Records FoundNo Family History Records Found No data available for this section No Family History Records FoundNo Family History Records Found Advance Directives No Advanced Directives Records FoundNo Advanced Directives Records FoundNo Advanced Directives Records FoundNo Advanced Directives Records Found Additional Source Comments INFORMATION SOURCE (unrecogn ized section and content) DATE CREATED AUTHOR 06/27/2019 [facility] DATE CREATED AUTHOR AUTHOR'S ORGANIZ ATION 07/16/2022 [facility] DATE CREATED AUTHOR AUTHOR'S ORGANIZ ATION 06/19/2023 [facility] DATE CREATED AUTHOR AUTHOR'S ORGANIZ ATION 11/05/2023 [facility] EPIC REASON FOR VISIT (unrecogniz ed section and content) CONGESTION, COUGH Patient Care team informatio n (unrecognized section and content) Personnel Name: CONSTANTINE GARCIA MD Address: Address: [address] [place] [address] FOR RECORDS PERTAINING TO PATIENTS WHO ARE [...] BE BASED ON THE PRIMARY CLINICAL RECORDS. [employer]. provides no warranty or guarantee of the accuracy or completeness of information in this document.
== END 2023-11-23 09:00 | disposition home or self-care (01) ==
LOC: PST 09:00
PROVIDERS: PCP Family Medicine; Visit Provider Obstetrics & Gynecology
DX: Z01.810 Encounter for preprocedural cardiovascular examination (principal); N95.0 Postmenopausal bleeding; R10.2 Pelvic and perineal pain
CPT/HCPCS: 93005

== ENCOUNTER 2023-12-03 06:43 | Day surgery (SDC) | payer BC, SELFPAY ==
[2023-11-23 09:28] VITALS: BP 118/88; PULSE 86; TEMP 36.4; O2SAT 96; BMI 25.6
[2023-12-03] VITALS (11 sets, daily range): BP systolic 99–147; BP diastolic 62–125; PULSE 84–98; TEMP 35.7–36.4; O2SAT 95–98; BMI 25.4
--- OUTSIDE RECORDS SUMMARY | 2023-12-03 06:45 | XMS_ITS | CCD ---
Author Organization [facility] Care Team Providers Care Vocational Education Teacher Name Role Phone KALPESH, DR TRUONG Attending [...] GONSALES, DR DELROY Mera Primary [facility] Unavailable GARYSBURG, DR TACO Melgar Consulting Unavailable KALPESH, DR TRUONG Consulting Unavailable Esperanza Ayon Unavailable CONSTANTINE GARCIA Primary Care Physician Oli NAILS Attending Unavailable ELIZABETH SHANNON Referring Unavailable Oli NAILS Attending Unavailable DIONNE POSEY Attending Unavailable Allergies Allergy Classification Reported Allergen(s) Allergy Type Date of Onset Reaction(s) Facility (1 source) benzoin resin Drug Allergy 6 [facility] Repository (2 sources) Codeine; Translations: [codeine] Drug Allergy [facility] Repository (1 source) Morpholine Analogues Drug allergy (disorder) [facility] Repository (1 source) Codeine; Translations: [codeine] Drug Allergy Gastrointestinal irritation (disorder) [facility] (2 sources) metroNIDAZOLE; Translations: [metronidazole] Drug Allergy Itching (finding) [facility] (2 sources) Morphine; Translations: [morphine] Drug Allergy Gastrointestinal irritation (disorder) [facility] Medications Current Medications Medication Drug Class(es) Dates Sig (Normalized) Sig (Original) [id number] 200 actuat albuterol 0.09 mg/actuat metered dose [...] Range Facility Outside Colonoscopyon 2022 Outside Colonoscopy [id number] #1.00TIFF [facility] Reminderson 06-03-2023 Reminders - From: Arabella Duffy LPN To: N - Clinical; Sent: 06/03/2023 14:12:11 EST Show up: 05/02/2033 07:00:00 EDT Subject: colonoscopy recall Due Date/Time: 06/02/2033 07:00:00 EST Reminder/Recall Patient due for screening colonoscopy 06/02/2033. [facility] Insurance Correspondenceon 1 Insurance Correspondence [id number] 9#1.00TIFF [facility] Consent for Procedure/Surger yon 05-05-2023 Consent for Procedure/Surgery [id number] 9#1.00TIFF [facility] Facesheeton 05-05-2023 Facesheet [id number] 4#1.00TIFF [facility] Ambulatory Visit Summaryon 1 Ambulatory Visit Summary [...] (deep vein thrombosis) Hypercholesterolemia Hypothyroidism Normal [facility] Historical Records Officeon 04-19-2023 Historical Records Office [id number] #1.00CD:127 Normal [facility] Physician Referralon 023 Physician Referral [id number]# 1.00CD:127 [facility] Physician Referral [id number] #1.00CD:127 Normal [facility] Outside Mammographyon 2022 Outside Mammography [id number] #1.00CD:127 Normal [facility] Physician Referralon 023 Physician Referral [id number] #1.00CD:127 Normal [facility] FREE T3on 07-09-2022 FREE T3 2.65 pg/mlL Normal 2.18-3.98 [facility] Comment on above: Performed By: #### F T3 ####[facility] [address] [place], [place] [address]MmSahil Barth FREE T4on 07-09-2022 Free T4 [Mass/Vol] 1.14 ng/dL Normal 0.76-1.46 [facility] Comment on above: Performed By: #### F T4 #### [facility] [address] [place], [place] [address] Dr. Rossana Barth Covid-19 PCR (CVDTBH)on SARS-CoV-2 (COVID-19) RNA JAY+probe Ql (Unsp spec) Not detected Normal NOT DETECTED [facility] Comment on above: Result Comment: When [...] for this test is supported by the [place] of Health and Human Service's declaration that [...] be used). Performed By: #### C VDTBH ####[facility] [address] [place], [place] [address]AgDr. Rossana Barth Covid-19 PCR (CVDTB)on 03-20 SARS-CoV-2 (COVID-19) RNA JAY+probe Ql (Unsp spec) Detected Critically abnormal NOT DETECTED [facility] Comment on above: Result Comment: This test is not yet approved or cleared by the [place] FDA. When there are no FDA-approved or cleared tests available, and other criteria are met, FDA can make tests available under an emergency access mechanism called an Emergency Use Authorization (EUA). The EUA for this test is supported by the Remanufacturing Technician of Health and Human Service's declaration that [...] used). Performed By: #### C VDTB #### [facility] [address] [place] [address] Dr. Rossana Barth CBC AUTO DIFFon 04-07-2022 BASO # 0.1 103/ul Normal 0.0-0.1 [facility] Comment on above: Performed By: #### C BC #### [facility] [address] [place] [address] Dr. Rossana Barth Basophils/100 WBC (Bld) 1.1 % Normal 0.2-2.0 [facility] Comment on above: Performed By: #### C BC #### [facility] [address] [place] [address] Dr. Rossana Barth EO # 0.1 103/ul Normal 0.0-0.7 [facility] Comment on above: Performed By: #### C BC #### [facility] [address] [place] [address] Dr. Rossana Barth Eosinophils/100 WBC (Bld) 2.6 % Normal 0.9-7.0 [facility] Comment on above: Performed By: #### C BC #### [facility] [address] [place] [address] Dr. Rossana Barth Erythrocyte distribution width (RBC) [Ratio] 12.5 % Normal 11.0-15.0 [facility] Comment on above: Performed By: #### C BC #### [facility] [address] [place] [address] Dr. Rossana Barth Hematocrit (Bld) [Volume fraction] 40.2 % Normal 36.0-48.0 [facility] Comment on above: Performed By: #### C BC #### [facility] [address] [place] [address] Dr. Rossana Barth Hemoglobin (Bld) [Mass/Vol] 13.3 g/dL Normal 12.0-16.0 [facility] Comment on above: Performed By: #### C BC #### [facility] [address] [place] [address] Dr. Rossana Barth IG # 0.01 10e3/ul Normal 0.00-0.03 [facility] Comment on above: Performed By: #### C BC #### [facility] [address] [place] [address] Dr. Rossana Barth IG % 0.2 % Normal 0.0-0.5 [facility] Comment on above: Performed By: #### C BC #### [facility] [address] [place] [address] Dr. Rossana Barth LYMPH # 2.1 103/ul Normal 1.2-3.8 [facility] Comment on above: Performed By: #### C BC #### [facility] [address] [place] [address] Dr. Rossana Barth Lymphocytes/100 WBC (Bld) 44.7 % Normal 20.5-60.0 [facility] Comment on above: Performed By: #### C BC #### [facility] [address] [place] [address] Dr. Rossana Barth MANUAL DIFF REQ NO Normal [facility] Comment on above: Performed By: #### C BC #### [facility] [address] [place] [address] Dr. Rossana Barth MCH (RBC) [Entitic mass] 32.4 pg Normal 26.7-34.0 [facility] Comment on above: Performed By: #### C BC #### [facility] [address] [place] [address] Dr. Rossana Barth MCHC (RBC) [Mass/Vol] 33.1 g/dL Normal 29.9-35.2 [facility] Comment on above: Performed By: #### C BC #### [facility] [address] [place] [address] Dr. Rossana Barth MCV (RBC) [Entitic vol] 98.0 fL Normal 81.0-99.0 [facility] Comment on above: Performed By: #### C BC #### [facility] [address] [place] [address] [address] Rossana Barth MONO # 0.5 103/ul Normal 0.3-0.8 [facility] Comment on above: Performed By: #### C BC #### [facility] [address] [place] [address] [address] Rossana Barth Monocytes/100 WBC (Bld) 9.8 % Normal 1.7-12.0 [facility] Comment on above: Performed By: #### C BC #### [facility] [address] [place] [address] [address] Rossana Barth NEUT # 2.0 103/ul Normal 1.4-6.5 [facility] Comment on above: Performed By: #### C BC #### [facility] [address] [place] [address] Dr. Rossana Barth Neutrophils/100 WBC (Bld) 41.6 % Critically low 43.0-75.0 [facility] Comment on above: Performed By: #### C BC #### [facility] [address] [place] [address] [address] Rossana Barth Platelet mean volume (Bld) [Entitic vol] 9.1 fL Critically low 9.5-13.5 [facility] Comment on above: Performed By: #### C BC #### [facility] [address] [place] [address] Dr. Rossana Barth PLT 305 103/ul Normal 150-450 [facility] Comment on above: Performed By: #### C BC #### [facility] [address] [place] [address] [address] Rossana Barth RBC 4.10 106/ul Critically low 4.20-5.40 [facility] Comment on above: Performed By: #### C BC #### [facility] [address] [place] [address] [address] Rossana Barth WBC 4.7 103/ul Normal 4.0-11.0 [facility] Comment on above: Performed By: #### C BC #### [facility] [address] [place] [address] Dr. Rossana Barth GLYCOHEMOGLOBIN A1Con 2021 ADA RECOMMENDATION SEE BELOW Normal [place] Comment on above: Result Comment: ADA RECOMMENDED LIMIT 4.0 - 6.0 ADA THERAPEUTIC TARGET < 7.0 ACTION SUGGESTED > 7.0 Performed By: #### A 1C #### [facility] [address] [place] [address] Dr. Rossana Barth Glucose [Mass/Vol] 111 mg/dL Normal [place] Comment on above: Performed By: #### A 1C #### [facility] [address] [place] [address] Dr. Rossana Barth HbA1c (Bld) [Mass fraction] 5.5 % Normal 4.5-6.2 [facility] Comment on above: Performed By: #### A 1C #### [facility] [address] [place] [address] Dr. Rossana Barth LIPID PROFILEon 04-07-2022 CHOL-HDL RATIO NORM SEE BELOW Normal [facility] Comment on above: Result Comment: 3.3 - 4.4 LOW RISK 4.4 - 7.1 AVERAGE RISK 7.1 - 11.0 MODERATE RISK >11.0 HIGH RISK Performed By: #### T SH, LIPID, CMP #### [facility] [address] [place] [address] Dr. Rossana Barth Cholesterol [Mass/Vol] 257 mg/dL Critically high <=200 [facility] Comment on above: Performed By: #### T SH, LIPID, CMP #### [facility] [address] [place] [address] Dr. Rossana Barth Cholesterol in HDL [Mass/Vol] 96 mg/dL Critically high 40-60 [facility] Comment on above: Performed By: #### T SH, LIPID, CMP #### [facility] [address] [place] [address] Dr. Rossana Barth Cholesterol in LDL [Mass/Vol] 133.2 mg/dL Normal [facility] Comment on above: Performed By: #### T SH, LIPID, CMP #### [facility] [address] [place] [address] [address] Rossana Barth Cholesterol.total/Cho lesterol in HDL [Mass ratio] 2.7 {ratio} Normal [facility] Comment on above: Performed By: #### T SH, LIPID, CMP #### [facility] [address] [place] [address] [address] Rossana Barth HDL NORMAL > or = 60 mg/dl - LOW CARDIOVASCULAR RISK <40 mg/dl - HIGH CARDIOVASCULAR RISK Normal [facility] Comment on above: Performed By: #### T EMMETT, LIPID, CMP #### [facility] [address] [place] [address] [address] Rosasna Barth LDL CALC NORMAL SEE BELOW Normal [facility] Comment on above: Result Comment: <100 mg/dl OPTIMAL 100 - 129 mg/dl NEAR OR ABOVE OPTIMAL 130 - 159 mg/dl BORDERLINE HIGH 160 - 189 mg/dl HIGH >190 mg/dl VERY HIGH Performed By: #### T EMMETT, LIPID, CMP #### [facility] [address] [place] [address] [address] Rossana Barth Triglyceride [Mass/Vol] 139 mg/dL Normal <=150 [facility] Comment on above: Performed By: #### T EMMETT, LIPID, CMP #### [facility] [address] [place] [address] [address] Rossana Barth VLDL CALC 27.8 mg/dL Normal [facility] Comment on above: Performed By: #### T EMMETT, LIPID, CMP #### [facility] [address] [place] [address] [address] Rossana Barth MG MAMM SCREEN 3D ANA CADon 04-07-2022 MG MAMM SCREEN 3D ANA CAD Patient: ROGER DELGADO Exam Date: 04/07/2022 : 1965 Gender:F Ordering : DR DIONNE POSEY . Admission #: [id number] Family : DR DELROY GONSALES . Order #: [id number] CLICK HERE TO VIEW EXAM RADIOLOGY REPORT [...] breast cancer at age 64. LOCATION: [facility] BREAST COMPOSITION: Scattered areas fibroglandular density. [...] MD on 04/07/2022 at 10:11 Normal [facility] PROF 14(COMP METB)on 022 Albumin [Mass/Vol] 4.1 g/dL Normal 3.4-5.0 [place] Comment on above: Performed By: #### T SH, LIPID, CMP #### [facility] [address] [place] [address] Dr. Rossana Barth Albumin/Globulin [Mass ratio] 1.3 {ratio} Normal [facility] Comment on above: Performed By: #### T SH, LIPID, CMP #### [facility] [address] [place] [address] [address] Rossana Barth ALP [Catalytic activity/Vol] 70 U/L Normal 46-116 [facility] Comment on above: Performed By: #### T SH, LIPID, CMP #### [facility] [address] [place] [address] [address] Rossana Barth ALT [Catalytic activity/Vol] 57 U/L Normal 14-59 [facility] Comment on above: Performed By: #### T SH, LIPID, CMP #### [facility] [address] [place] [address] [address] Rossana Barth Anion gap [Moles/Vol] 9.4 mmol/L Normal [facility] Comment on above: Performed By: #### T SH, LIPID, CMP #### [facility] [address] [place] [address] [address] Rossana Barth AST [Catalytic activity/Vol] 25 U/L Normal 15-37 [facility] Comment on above: Performed By: #### T SH, LIPID, CMP #### [facility] [address] [place] [address] Dr. Rossana Barth Bilirubin [Mass/Vol] 0.4 mg/dL Normal 0.2-1.0 [facility] Comment on above: Performed By: #### T SH, LIPID, CMP #### [facility] [address] [place] [address] Dr. Rossana Barth Calcium [Mass/Vol] 9.3 mg/dL Normal 8.5-10.1 [place] Comment on above: Performed By: #### T SH, LIPID, CMP #### [facility] [address] [place] [address] Dr. Rossana Barth Chloride [Moles/Vol] 103 mmol/L Normal 98-107 [facility] Comment on above: Performed By: #### T SH, LIPID, CMP #### [facility] [address] [place] [address] Dr. Rossana Barth CO2 [Moles/Vol] 30.6 mmol/L Normal 21.0-32.0 [facility] Comment on above: Performed By: #### T SH, LIPID, CMP #### [facility] [address] [place] [address] Dr. Rossana Barth Creatinine [Mass/Vol] 0.83 mg/dL Normal 0.55-1.02 [facility] Comment on above: Performed By: #### T SH, LIPID, CMP #### [facility] [address] [place] [address] Dr. Rossana Barth EGFR-AF PRYDEINIG >60 Normal >=60 [facility] Comment on above: Performed By: #### T SH, LIPID, CMP #### [facility] [address] [place] [address] Dr. Rossana Barth EGFR-NON AF PRYDEINIG >60 Normal >=60 [facility] Comment on above: Performed By: #### T SH, LIPID, CMP #### [facility] [address] [place] [address] Dr. Rossana Barth Globulin (S) [Mass/Vol] 3.2 g/dL Normal [facility] Comment on above: Performed By: #### T SH, LIPID, CMP #### [facility] [address] [place] [address] Dr. Rossana Barth Glucose [Mass/Vol] 97 mg/dL Normal 74-106 [place] Comment on above: Performed By: #### T SH, LIPID, CMP #### [facility] [address] [place] [address] Dr. Rossana Barth Potassium [Moles/Vol] 4.0 mmol/L Normal 3.5-5.1 [facility] Comment on above: Performed By: #### T EMMETT, LIPID, CMP #### [facility] [address] [place] [address] Dr. Rossana Barth Protein [Mass/Vol] 7.3 g/dL Normal 6.4-8.2 [facility] Comment on above: Performed By: #### T EMMETT, LIPID, CMP #### [facility] [address] [place] [address] Dr. Rossana Barth Sodium [Moles/Vol] 139 mmol/L Normal 136-145 [facility] Comment on above: Performed By: #### T SH, LIPID, CMP #### [facility] [address] [place] [address] Dr. Rossana Barth Urea nitrogen [Mass/Vol] 12.0 mg/dL Normal 7.0-18.0 [facility] Comment on above: Performed By: #### T SH, LIPID, CMP #### [facility] [address] [place] [address] Dr. Rossana Barth Urea nitrogen/Creatinine [Mass ratio] 14.5 mg/mg Normal [facility] Comment on above: Performed By: #### T SH, LIPID, CMP #### [facility] [address] [place] [address] Dr. Rossana Barth TSHon 04-07-2022 TSH 3.022 uIU/mL Normal 0.358-3.740 [facility] Comment on above: Performed By: #### T SH, LIPID, CMP #### [facility] [address] [place] [address] Dr. Rossana Barth XR DEXA BONE DENSITYon [...] by: TACO FRANKLIN Date: 2022-04-07 09:24 Normal [facility] PAP ACOG PANEL 2: 30 to 65on 03-02-2022 . . Normal [facility] Comment on above: Result Comment: Perf ormed at: WB Performed By: #### [id number] #### [facility] [address] [place] [address] Dr. Rossana Barth Age Gdln ACOG Testing 30-65 Normal [facility] Comment on above: Performed By: #### [id number] #### [facility] [address] [place] [address] Dr. Rossana Barth DIAGNOSIS: Comment Normal [facility] Comment on above: Result Comment: NEGA TIVE FOR INTRAEPITHELIAL LESION OR MALIGNANCY. Performed at: WB Performed By: #### [id number] #### [facility] [address] [place] [address] [address] Rossana Barth HPV Aptima Negative Normal Negative [facility] Comment on above: Result Comment: This nucleic acid amplification test detects fourteen high-risk HPV types (16,18,31,33,35,39,45,51,52,56,58,59,66,68) without differentiation. Performed at: =G Performed By: #### 4 [id number] #### [facility] [address] [place] [address] Dr. Rossana Barth Methodology: Comment [facility] Comment on above: Result Comment: This liquid based ThinPrep(R) pap test was screened with the use of an image guided system. Performed at: WB Performed By: #### [id number] #### [facility] [address] [place] [address] Dr. Rossana Barth Note: Comment Normal [facility] Comment on above: Result Comment: The Pap smear is a screening test designed to aid in the detection of premalignant and malignant conditions of the uterine cervix. It is not a diagnostic procedure and should not be used as the sole means of detecting cervical cancer. Both false-positive and false-negative reports do occur. . Performed at: WB Performed By: #### [id number] #### [facility] [address] [place] [address] Dr. Rossana Barth Performed by: Comment Normal [facility] Comment on above: Result Comment: Kimmie Patel Cupola Repairer (ASCP) Performed at: WB Performed By: #### [id number] #### [facility] [address] [place] [address] Dr. Rossana Barth Specimen adequacy: Comment Normal [place] Comment on above: Result Comment: Sati sfactory for evaluation. Performed at: WB Performed By: #### 4 [id number] #### [facility] [address] [place] [address] Dr. Rossana Barth Operative Reporton 9 Operative Report [facility] OPERATIVE RECORD ROGER DELGADO [place] [id number] [facility] OSCAR SORIANO MD [id number] SURGEON: Oscar Soriano MD DATE OF OPERATION: 06/23/2019 PREOPERATIVE DIAGNOSIS: Bilateral mammary hypoplasia, status post previous saline breast augmentation subpectoral. POSTOPERATIVE DIAGNOSIS: Bilateral mammary hypoplasia, status post previous saline breast augmentation subpectoral. PROCEDURE: Bilateral saline breast implant explantation, intact SYSTEM OPERATION SUPERINTENDENT: Priyanka Santacruz PA-C. ANESTHESIA: General LMA. ESTIMATED [...] in satisfactory condition. OSCAR SORIANO MD RS/Bridgette /[id number] Normal [facility] Vital Signs Date Time Vital Sign Value Performing Clinician Facility 05-04-2023 15:20-0400 Blood Pressure Location [facility] 05-04-2023 15:20-0400 Diastolic blood pressure 90 mm[Hg] [facility] 05-04-2023 15:20-0400 Heart rate 80 /min [facility] 05-04-2023 15:20-0400 Respiratory rate 16 /min [facility] 05-04-2023 15:20-0400 Systolic blood pressure 128 mm[Hg] [facility] 09-28-2022 16:35-0400 Body height 157.48 cm Esperanza Hernandezault Other [facility] Other 09-28-2022 16:35-0400 Body mass index (BMI) [Ratio] 25.6 kg/m2 Esperanza Nany Other [facility] Other 09-28-2022 16:35-0400 Body temperature 98.9 [degF] Esperanza Nany Other [facility] Other 09-28-2022 16:35-0400 Body weight 63.5 kg Esperanza Ayon Other [facility] Other 09-28-2022 16:35-0400 Respiratory rate 18 /min Esperanza Ayon Other [facility] Other 09-28-2022 16:35-0400 SaO2% (BldA) [Mass fraction] 95 % Esperanza Ayon Other [facility] Other Encounters Encounter Date Encounter Type Care Provider Facility Start: 11-04-2023 End: 11-04-2023 ambulatory DIONNE POSEY Not Available Start: 06-02-2023 End: 06-03-2023 ambulatory Oli NAILS Facility:CD:[id number] Start: 05-04-2023 End: 05-05-2023 [facility] Start: 05-04-2023 End: 05-04-2023 Patient encounter procedure Oli NAILS General Surgery [facility] Start: 03-30-2023 ambulatory Oli NAILS Facility: [facility] Start: 09-28-2022 Office outpatient ne w 20 minutes Esperanza Ayon [facility] Start: 09-28-2022 End: 09-28-2022 ambulatory Esperanza Ayon Other [facility] Other Start: 07-09-2022 End: 07-10-[address] DELROY GONSALES Facility:[facility] Start: 07-06-2022 Encounter for gynecological examination (general) (routine) without abnormal findings DR DIONNE POSEY [facility] Start: 04-19-2022 End: 04-19-[address] [...] Immunization Date Immunization Notes Care Provider Fa [facility] 12-02-2020 SARS-CoV-2 (COVID-19 ) mRNA BNT-162b2 vax Oli NILL [facility] [place] 11-07-2020 SARS-CoV-2 (COVID-19 ) mRNA BNT-162b2 vax Oli NILL [facility] [place] Payers Date Payer Category Payer [facility] [id number] 2019 Unknown [id number] 1965 Unknown [id number] 2.16.84 [id number] 1965 Unknown [id number] 2.16.84 [id number] 1965 Unknown [id number] 2.16.84 [id number] 1965 Unknown [id number] 2.16.84 [id number] 1965 Unknown [id number] 2.16.84 [id number] 1965 Unknown [id number] 2.16.8 [id number] 1965 Unknown [id number] 2.16.8 [id number] 1965 Unknown [id number] 2.16.84 [id number] Social History Date Type Detail Facility Sex Assigned At [facility] Start: 05-04-2023 Tobacco smoking status Never s moked tobacco (finding) [facility] [place] Tobacco smoking status Never Gener al [facility] Functional Status Date Assessment Result Facility 05-04-2023 Functional Status N/A General [facility] Clinical Note 05-04-2023 Note Date & [...] mellitus ty (more content not included)... [facility] Comment on above: Result Comment: Elec [...] weeks for the cough to go away [facility] Other Evaluation + Plan note Note Date & Type Note Facility Evaluation + Plan note No data available for this section General Surgery [facility] History general Narrative - Reported Note Date & Type Note Facility History general Narrative - Reported Type Medical History Hypothyroidism Medical History high cholesterol Surgical History Retinal surgery [facility] Other Hospital Discharge instructions Note Date & Type Note Facility Hospital Discharge instructions No data available for this section General Surgery [facility] Progress note Note Date & Type Note Facility Progress note No data available for this section General Surgery [facility] Summary Purpose Family History No Family History Records FoundNo Family History Records Found No data available for this section No Family History Records FoundNo Family History Records Found Advance Directives No Advanced Directives Records FoundNo Advanced Directives Records FoundNo Advanced Directives Records FoundNo Advanced Directives Records Found Additional Source Comments INFORMATION SOURCE (unrecogn ized section and content) DATE CREATED AUTHOR 06/27/2019 [facility] DATE CREATED AUTHOR AUTHOR'S ORGANIZ ATION 07/16/2022 [facility] DATE CREATED AUTHOR AUTHOR'S ORGANIZ ATION 06/19/2023 [facility] DATE CREATED AUTHOR AUTHOR'S ORGANIZ ATION 11/05/2023 [facility] EPIC REASON FOR VISIT (unrecogniz ed section and content) CONGESTION, COUGH Patient Care team informatio n (unrecognized section and content) Personnel Name: CONSTANTINE GARCIA MD Address: Address: [address] [place] [address] FOR RECORDS PERTAINING TO PATIENTS WHO ARE [...] BE BASED ON THE PRIMARY CLINICAL RECORDS. [facility]. provides no warranty or guarantee of the accuracy or completeness of information in this document.
[2023-12-03 06:50] LABS: Basophils Absolute Auto 0.1 10^3/uL (0.0-0.1); Basophils Percent Auto 0.8 % (0.2-2.0); Eosinophils Absolute Auto 0.3 10^3/uL (0.0-0.7); Eosinophils Percent Auto 4.4 % (0.9-7.0); Hematocrit 39.9 % (36.0-48.0); Hemoglobin 13.4 g/dL (12.0-16.0); Immature Granulocytes Abs Auto 0.01 10^3/uL (0.00-0.03); Immature Granulocytes Pct Auto 0.2 % (0.0-0.5); Lymphocytes Absolute Auto 2.8 10^3/uL (1.2-3.8); Lymphocytes Percent Auto 45.3 % (20.5-60.0); Mean Corpuscular HGB Conc 33.6 g/dL (29.9-35.2); Mean Corpuscular Hemoglobin 32.1 pg (26.7-34.0); Mean Corpuscular Volume 95.5 fL (81.0-99.0); Mean Platelet Volume 8.8 fL (9.5-13.5); Monocytes Absolute Auto 0.6 10^3/uL (0.3-0.8); Monocytes Percent Auto 10.3 % (1.7-12.0); Neutrophils Absolute Auto 2.4 10^3/uL (1.4-6.5); Platelet Count 257 10^3/uL (150-450); Red Blood Count 4.18 10^6/uL (4.20-5.40); Red Cell Distribution Width 12.1 % (11.0-15.0); White Blood Count 6.2 10^3/uL (4.0-11.0)
[2023-12-03] MEDS: LACTATED RINGER'S SOLUTION 1,000 ML 50 ML IV (07:16)
--- NOTE | 2023-12-03 09:28 | PM.ONB ---
Brief Operative Note Date of procedure: 12/03/23 Pre-op diagnosis general: thickend endometrial lining, pmb Post-op diagnosis: same as pre-op Procedure: NAME OF PROCEDURE: [ D&c hysteroscopy with myosure] PROCEDURE: The patient was taken back to the Operating Room where she was prepped and draped in normal sterile fashion after being placed under general anesthesia without difficulty. She was also placed in the dorsal lithotomy position. A weighted speculum was placed in the patient?s vagina. The anterior lip of the cervix was identified and grasped with a single tooth tenaculum. The patient?s uterus was then sounded roughly to [? 8] cm. The patient was then gently dilated using Hegar dilators. The hysteroscope was passed through the patient?s cervix into the uterus. Both ostia were identified. fluffy appearing endometrium. No gross evidence of malignancy, no gross evidence of polyps or fibroids. The myosure apparatus was placed through the scope, The myosure was engaged and endometrial curretting were removed, The hysteroscope was then removed from the uterus. The endometrial curettings were sent out to pathology. The single tooth tenaculum was then removed from the patient's anterior lip of the cervix where excellent hemostasis was noted. All instruments were removed from the patient?s vagina. The patient tolerated the procedure well. Sponge, lap and needle counts were correct times two. The patient was taken to the Recovery Room in stable condition.Room in stable condition. Anesthesia: GETA Surgeon: Michael Aguirre Estimated blood loss (mL): 5 Pathology: other (endometrial currettings) Condition: stable Disposition: PACU Urinary Catheter Management Urinary Catheter Management Urethral: Cath placed during this visit: no
== END 2023-12-03 10:35 | disposition home or self-care (01) ==
PROVIDERS: PCP Family Medicine; Visit Provider Obstetrics & Gynecology
PROC: (CPT 00952; principal; 2023-12-03 08:05)
DX: N95.0 Postmenopausal bleeding (principal); R10.2 Pelvic and perineal pain; R93.89 Abnormal findings on diagnostic imaging of other specified body structures; E78.2 Mixed hyperlipidemia; E03.9 Hypothyroidism, unspecified; Z90.49 Acquired absence of other specified parts of digestive tract; Z86.16 Personal history of COVID-19; Z86.718 Personal history of other venous thrombosis and embolism; H54.7 Unspecified visual loss; Z98.51 Tubal ligation status; N94.10 Unspecified dyspareunia
CPT/HCPCS: 00952; 58558; 36415; 85025; 88305; J1094; J2704

== ENCOUNTER 2024-05-15 06:30 | Outpatient (OUT) | payer BC, SELFPAY ==
--- OUTSIDE RECORDS SUMMARY | 2024-05-15 06:33 | XMS_ITS | CCD ---
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 Name Role Phone DR DIONNE AGUIRRE Attending Unavailable TIMOTHY, DR TRUONG Consulting Unavailable TIMOTHY, DR TRUONG Admitting Unavailable GONSALES, DR DELROY Mera Primary Care Unavailable GONSALES, DR DELROY Mera Primary Care Unavailable GONSALES, DR DELROY Mera Admitting Unavailable GONSALES, DR DELROY Mera Attending Unavailable GONSALES, DR DELROY Mera Consulting Unavailable GONSALES, DR DELROY Mera Primary Care Unavailable MARCELO, CRICKET Admitting Unavailable MARCELO, CRICKET Attending Unavailable MARCELO, CRICKET Consulting Unavailable DRU, DR DELROY Mera Primary Care Unavailable MARCELO, CRICKET Attending Unavailable MARCELO, CRICKET Consulting Unavailable MARCELO, CRICKET Admitting Unavailable TIMOTHY, DR TRUONG Admitting Unavailable TIMOTHY, DR TRUONG Attending Unavailable GONSALES, DR DELROY Mera Consulting Unavailable GONSALES, DR DELROY Mera Primary Care Unavailable RUTLAND, DR TACO Melgar Consulting Unavailable TIMOTHY, DR TRUONG Consulting Unavailable Esperanza Ayon Unavailable CONSTANTINE GARCIA Primary Care Physician Oli NAILS Attending Unavailable ELIZABETH SHANNON Referring Unavailable Oli NAILS Attending Unavailable Dionne Aguirre Attending Unavailable Dionne Aguirre Admitting Unavailable Dionne Aguirre Attending Provider DIONNE AGUIRRE Attending Unavailable DIONNE AGUIRRE Attending Unavailable Allergies Allergy Classification Reported Allergen(s) Allergy Type Date of Onset Reaction(s) Facility (1 source) benzoin resin Drug Allergy 6 [facility] Repository (2 sources) Codeine; Translations: [codeine] Drug Allergy [facility] Repository (1 source) Morpholine Analogues Drug allergy (disorder) [facility] Repository (1 source) Codeine; Translations: [codeine] Drug Allergy Gastrointestinal irritation (disorder) [facility] [place] (2 sources) metroNIDAZOLE; Translations: [metronidazole] Drug Allergy Itching (finding) [facility] [place] (2 sources) Morphine; Translations: [morphine] Drug Allergy Gastrointestinal irritation (disorder) [facility] [place] Medications Current Medications Medication Drug Class(es) Dates Sig (Normalized) Sig (Original) [id number] 200 actuat albuterol 0.09 mg/actuat metered dose [...] [Hemorrhage of anus and rectum] Onset: 05-04-20 Episodic Other bone disease and musculoskeletal deformities [...] Test Name Value Interpretation Reference Range Facility [facility] 12-03-2023 L Specimen: [id number] Received: 12/03/23 Status: MONET Fallonjodi Num: [id number] Spec Type: Surgical Subm Dr: Dionne Aguirre Tissues: A Endometrium - Curettings (EMC) Procedures: HE/2, Gross/Micro L4 Age/ Patient Sex Location Account Attending Physician Elvia Delgado 58/F [place] [id number] Dionne Aguirre SPEC NUM: [id number] RECD: 12/03/23 STATUS: MONET VALLEJO NUM: [id number] KALEY: 12/03/[address]: Dionne Aguirre ENTERED: 12/03/[address] [facility] [address]: González,Lab SPEC TYPE: Surgical DEPT: ZBIGNIEW ALEJANDRE ORDERED: HE/2, Gross/Micro L4 ORDERED: HE/2, Gross/Micro L4 Pathological Diagnosis Endometrial curettings: -Multiple small strips of endomyometrial tissue with inactive type endometrium, but also with patchy, probably at least moderately, noted adenomyosis, otherwise without any hyperplasia or atypia identified Clinical Information Postmenopausal bleeding, pelvic pain. Gross Description Received in formalin, labeled with the patient's name, date of and endometrial curettings are multiple selby tissue fragments admixed with mucus measuring in aggregate 2.1 x 0.7 x 0.2 cm, entirely submitted in A1. CPT Codes 14862 Specimen: [id number] Received: 12/03/23 Status: MONET Vallejo Num: [id number] Spec Type: Surgical Subm Dr: Dionne Aguirre Tissues: A Endometrium - Curettings (EMC) Procedures: HE/2, Gross/Micro L4 Patient: Elvia Delgado [id number] (Continued) Signed (signature on file) James Barth MD 12/06/231941 Normal [facility] Outside Colonoscopyon 2022 Outside Colonoscopy [id number] #1.00TIFF Normal [facility] Reminderson 06-03-2023 Reminders - From: Arabella Duffy LPN To: SANDORN - Clinical; Sent: 06/03/2023 14:12:11 EST Show up: 05/02/2033 07:00:00 EDT Subject: colonoscopy recall Due Date/Time: 06/02/2033 07:00:00 EST Reminder/Recall Patient due for screening colonoscopy 06/02/2033. Normal [facility] Insurance Correspondenceon 1 Insurance Correspondence [id number] 9#1.00TIFF [facility] Consent for Procedure/Surger yon 05-05-2023 Consent for Procedure/Surgery [id number] 9#1.00TIFF [facility] Facesheeton 05-05-2023 Facesheet [id number] 4#1.00TIFF [facility] Ambulatory Visit Summaryon 1 Ambulatory Visit Summary ELVIA DELGADO :1965 Visit Date:05/04/2023 Ambulatory Visit Instructions [...] DVT (deep vein thrombosis) Hypercholesterolemia Hypothyroidism Normal [facility] Historical Records Officeon 04-19-2023 Historical Records Office [id number] #1.00CD:127 Normal [facility] Physician Referralon 023 Physician Referral [id number]# 1.00CD:127 Normal [facility] Physician Referral [id number] #1.00CD:127 Normal [facility] Outside Mammographyon 2022 Outside Mammography [id number] #1.00CD:127 Normal [facility] Physician Referralon 023 Physician Referral [id number] #1.00CD:127 Normal [facility] FREE T3on 07-09-2022 FREE T3 2.65 pg/mlL Normal 2.18-3.98 [facility] Comment on above: Performed By: #### F T3 ####[facility] [address] [place], [place] [address]BlDr. Rossana Barth FREE T4on 07-09-2022 Free T4 [Mass/Vol] 1.14 ng/dL Normal 0.76-1.46 [facility] Comment on above: Performed By: #### F T4 #### [facility] [address] [place], [place] [address] Dr. Rossana Barth Covid-19 PCR (CVDTB)on SARS-CoV-2 (COVID-19) RNA JAY+probe Ql (Unsp spec) Not detected Normal NOT DETECTED [facility] Comment on above: Result Comment: When [...] for this test is supported by the [employer] Consultant of Health and Human Service's declaration that [...] be used). Performed By: #### C VDTB ####[facility] [address] [place], [place] [address]ObDr. Rossana Barth Covid-19 PCR (CVDTB)on 03-20 SARS-CoV-2 (COVID-19) RNA JAY+probe Ql (Unsp spec) Detected Critically abnormal NOT DETECTED [facility] Comment on above: Result Comment: This test is not yet approved or cleared by the [place] FDA. When there are no FDA-approved or cleared tests available, and other criteria are met, FDA can make tests available under an emergency access mechanism called an Emergency Use Authorization (EUA). The EUA for this test is supported by the [place] of Health and Human Service's declaration that [...] used). Performed By: #### C VDTB #### [facility] [address] [place], [place] [address] Dr. Rossana Barth CBC AUTO DIFFon 04-07-2022 BASO # 0.1 103/ul Normal 0.0-0.1 [facility] Comment on above: Performed By: #### C BC #### [facility] [address] [place] [address] [address] Rossana Barth Basophils/100 WBC (Bld) 1.1 % Normal 0.2-2.0 [facility] Comment on above: Performed By: #### C BC #### [facility] [address] [place] [address] [address] Rossana Barth EO # 0.1 103/ul Normal 0.0-0.7 [facility] Comment on above: Performed By: #### C BC #### [facility] [address] [place] [address] Dr. Rossana Barth Eosinophils/100 WBC (Bld) 2.6 % Normal 0.9-7.0 [facility] Comment on above: Performed By: #### C BC #### [facility] [address] [place] [address] Dr. Rossana Barth Erythrocyte distribution width (RBC) [Ratio] 12.5 % Normal 11.0-15.0 [facility] Comment on above: Performed By: #### C BC #### [facility] [address] [place] [address] Dr. Rossana Barth Hematocrit (Bld) [Volume fraction] 40.2 % Normal 36.0-48.0 [facility] Comment on above: Performed By: #### C BC #### [facility] [address] [place] [address] Dr. Rossana Barth Hemoglobin (Bld) [Mass/Vol] 13.3 g/dL Normal 12.0-16.0 [facility] Comment on above: Performed By: #### C BC #### [facility] [address] [place] [address] Dr. Rossana Barth IG # 0.01 10e3/ul Normal 0.00-0.03 [facility] Comment on above: Performed By: #### C BC #### [facility] [address] [place] [address] Dr. Rossana Barth IG % 0.2 % Normal 0.0-0.5 [facility] Comment on above: Performed By: #### C BC #### [facility] [address] [place] [address] Dr. Rossana Barth LYMPH # 2.1 103/ul Normal 1.2-3.8 [facility] Comment on above: Performed By: #### C BC #### [facility] [address] [place] [address] Dr. Rossana Barth Lymphocytes/100 WBC (Bld) 44.7 % Normal 20.5-60.0 [facility] Comment on above: Performed By: #### C BC #### [facility] [address] [place] [address] Dr. Rossana Barth MANUAL DIFF REQ NO Normal [facility] Comment on above: Performed By: #### C BC #### [facility] [address] [place] [address] Dr. Rossana Barth MCH (RBC) [Entitic mass] 32.4 pg Normal 26.7-34.0 [facility] Comment on above: Performed By: #### C BC #### [facility] [address] [place] [address] Dr. Rossana Barth MCHC (RBC) [Mass/Vol] 33.1 g/dL Normal 29.9-35.2 [facility] Comment on above: Performed By: #### C BC #### [facility] [address] [place] [address] Dr. Rossana Barth MCV (RBC) [Entitic vol] 98.0 fL Normal 81.0-99.0 [facility] Comment on above: Performed By: #### C BC #### [facility] [address] [place] [address] Dr. Rossana Barth MONO # 0.5 103/ul Normal 0.3-0.8 [facility] Comment on above: Performed By: #### C BC #### [facility] [address] [place] [address] Dr. Rossana Barth Monocytes/100 WBC (Bld) 9.8 % Normal 1.7-12.0 [facility] Comment on above: Performed By: #### C BC #### [facility] [address] [place] [address] [address] Rossana Barth NEUT # 2.0 103/ul Normal 1.4-6.5 [facility] Comment on above: Performed By: #### C BC #### [facility] [address] [place] [address] [address] Rossana Barth Neutrophils/100 WBC (Bld) 41.6 % Critically low 43.0-75.0 [facility] Comment on above: Performed By: #### C BC #### [facility] [address] [place] [address] [address] Rossana Barth Platelet mean volume (Bld) [Entitic vol] 9.1 fL Critically low 9.5-13.5 [facility] Comment on above: Performed By: #### C BC #### [facility] [address] [place] [address] Dr. Rossana Barth PLT 305 103/ul Normal 150-450 [facility] Comment on above: Performed By: #### C BC #### [facility] [address] [place] [address] [address] Rossana Barth RBC 4.10 106/ul Critically low 4.20-5.40 [facility] Comment on above: Performed By: #### C BC #### [facility] [address] [place] [address] [address] Rossana Barth WBC 4.7 103/ul Normal 4.0-11.0 [facility] Comment on above: Performed By: #### C BC #### [facility] [address] [place] [address] Dr. Rossana Barth GLYCOHEMOGLOBIN A1Con 2021 ADA RECOMMENDATION SEE BELOW Normal [facility] Comment on above: Result Comment: ADA RECOMMENDED LIMIT 4.0 - 6.0 ADA THERAPEUTIC TARGET < 7.0 ACTION SUGGESTED > 7.0 Performed By: #### A 1C #### [facility] [address] [place] [address] Dr. Rossana Barth Glucose [Mass/Vol] 111 mg/dL Normal [facility] Comment on above: Performed By: #### A 1C #### [facility] [address] [place] [address] [address] Rossana Barth HbA1c (Bld) [Mass fraction] 5.5 % Normal 4.5-6.2 [facility] Comment on above: Performed By: #### A 1C #### [facility] [address] [place] [address] Dr. Rossana Barth LIPID PROFILEon 04-07-2022 CHOL-HDL RATIO NORM SEE BELOW Normal [facility] Comment on above: Result Comment: 3.3 - 4.4 LOW RISK 4.4 - 7.1 AVERAGE RISK 7.1 - 11.0 MODERATE RISK >11.0 HIGH RISK Performed By: #### T SH, LIPID, CMP #### [facility] [address] [place] [address] Dr. Rossana Barth Cholesterol [Mass/Vol] 257 mg/dL Critically high <=200 [facility] Comment on above: Performed By: #### T EMMETT, LIPID, CMP #### [facility] [address] [place] [address] Dr. Rossana Barth Cholesterol in HDL [Mass/Vol] 96 mg/dL Critically high 40-60 [facility] Comment on above: Performed By: #### T EMMETT, LIPID, CMP #### [facility] [address] [place] [address] [address] Rossana Barth Cholesterol in LDL [Mass/Vol] 133.2 mg/dL Normal [facility] Comment on above: Performed By: #### T SH, LIPID, CMP #### [facility] [address] [place] [address] Dr. Rossana Barth Cholesterol.total/Cho lesterol in HDL [Mass ratio] 2.7 {ratio} Normal [facility] Comment on above: Performed By: #### T SH, LIPID, CMP #### [facility] [address] [place] [address] Dr. Rossana Barth HDL NORMAL > or = 60 mg/dl - LOW CARDIOVASCULAR RISK <40 mg/dl - HIGH CARDIOVASCULAR RISK Normal [facility] Comment on above: Performed By: #### T SH, LIPID, CMP #### [facility] [address] [place], [place] [address] Dr. Rossana Barth LDL CALC NORMAL SEE BELOW Normal [facility] Comment on above: Result Comment: <100 mg/dl OPTIMAL 100 - 129 mg/dl NEAR OR ABOVE OPTIMAL 130 - 159 mg/dl BORDERLINE HIGH 160 - 189 mg/dl HIGH >190 mg/dl VERY HIGH Performed By: #### T SH, LIPID, CMP #### [facility] [address] [place], [place] [address] Dr. Rossana Barth Triglyceride [Mass/Vol] 139 mg/dL Normal <=150 [facility] Comment on above: Performed By: #### T SH, LIPID, CMP #### [facility] [address] [place], [place] [address] Dr. Rossana Barth VLDL CALC 27.8 mg/dL Normal [facility] Comment on above: Performed By: #### T SH, LIPID, CMP #### [facility] [address] [place] [address] [address] Rossana Barth MG MAMM SCREEN 3D ANA CADon 04-07-2022 MG MAMM SCREEN 3D ANA CAD Patient: ELVIA DELGADO Exam Date: 04/07/2022 : 1965 Gender:F Ordering : DR DIONNE AGUIRRE . Admission #: [id number] Family : DR DELROY GONSALES . Order #: [id number] CLICK HERE TO VIEW EXAM RADIOLOGY REPORT [...] breast cancer at age 64. LOCATION: [facility] BREAST COMPOSITION: Scattered areas fibroglandular density. [...] Franklin MD on 04/07/2022 at 10:[address] [facility] PROF 14(COMP METB)on 022 Albumin [Mass/Vol] 4.1 g/dL Normal 3.4-5.0 [facility] Comment on above: Performed By: #### T SH, LIPID, CMP #### [facility] [address] [place] [address] Dr. Rossana Barth Albumin/Globulin [Mass ratio] 1.3 {ratio} Normal [facility] Comment on above: Performed By: #### T SH, LIPID, CMP #### [facility] [address] [place] [address] Dr. Rossana Barth ALP [Catalytic activity/Vol] 70 U/L Normal 46-116 [facility] Comment on above: Performed By: #### T SH, LIPID, CMP #### [facility] [address] [place] [address] Dr. Rossana Barth ALT [Catalytic activity/Vol] 57 U/L Normal 14-59 [facility] Comment on above: Performed By: #### T SH, LIPID, CMP #### [facility] [address] [place] [address] Dr. Rossana Barth Anion gap [Moles/Vol] 9.4 mmol/L Normal [facility] Comment on above: Performed By: #### T SH, LIPID, CMP #### [facility] [address] [place] [address] Dr. Rossana Barth AST [Catalytic activity/Vol] 25 U/L Normal 15-37 [facility] Comment on above: Performed By: #### T SH, LIPID, CMP #### [facility] [address] [place] [address] Dr. Rossana Barth Bilirubin [Mass/Vol] 0.4 mg/dL Normal 0.2-1.0 [facility] Comment on above: Performed By: #### T SH, LIPID, CMP #### [facility] [address] [place] [address] [address] Rossana Barth Calcium [Mass/Vol] 9.3 mg/dL Normal 8.5-10.1 [facility] Comment on above: Performed By: #### T SH, LIPID, CMP #### [facility] [address] [place] [address] Dr. Rossana Barth Chloride [Moles/Vol] 103 mmol/L Normal 98-107 [facility] Comment on above: Performed By: #### T SH, LIPID, CMP #### [facility] [address] [place] [address] Dr. Rossana Barth CO2 [Moles/Vol] 30.6 mmol/L Normal 21.0-32.0 [facility] Comment on above: Performed By: #### T SH, LIPID, CMP #### [facility] [address] [place] [address] Dr. Rossana Barth Creatinine [Mass/Vol] 0.83 mg/dL Normal 0.55-1.02 [facility] Comment on above: Performed By: #### T SH, LIPID, CMP #### [facility] [address] [place] [address] Dr. Rossana Barth EGFR-AF CITIZEN [place] >60 Normal >=60 [facility] Comment on above: Performed By: #### T SH, LIPID, CMP #### [facility] [address] [place] [address] Dr. Rossana Barth EGFR-NON AF CITIZEN OF [place] >60 Normal >=60 [facility] Comment on above: Performed By: #### T SH, LIPID, CMP #### [facility] [address] [place] [address] Dr. Rossana Barth Globulin (S) [Mass/Vol] 3.2 g/dL Normal [facility] Comment on above: Performed By: #### T SH, LIPID, CMP #### [facility] [address] [place] [address] Dr. Rossana Barth Glucose [Mass/Vol] 97 mg/dL Normal 74-106 [facility] Comment on above: Performed By: #### T SH, LIPID, CMP #### [facility] [address] [place] [address] Dr. Rossana Barth Potassium [Moles/Vol] 4.0 mmol/L Normal 3.5-5.1 [facility] Comment on above: Performed By: #### T SH, LIPID, CMP #### [facility] [address] [place] [address] Dr. Rossana Barth Protein [Mass/Vol] 7.3 g/dL Normal 6.4-8.2 [facility] Comment on above: Performed By: #### T SH, LIPID, CMP #### [facility] [address] [place] [address] Dr. Rossana Barth Sodium [Moles/Vol] 139 mmol/L Normal 136-145 [facility] Comment on above: Performed By: #### T SH, LIPID, CMP #### [facility] [address] [place] [address] Dr. Rossana Barth Urea nitrogen [Mass/Vol] 12.0 mg/dL Normal 7.0-18.0 [facility] Comment on above: Performed By: #### T EMMETT, LIPID, CMP #### [facility] [address] [place] [address] Dr. Rossana Barth Urea nitrogen/Creatinine [Mass ratio] 14.5 mg/mg Normal [facility] Comment on above: Performed By: #### T EMMETT, LIPID, CMP #### [facility] [address] [place] [address] Dr. Rossana Barth TSHon 04-07-2022 TSH 3.022 uIU/mL Normal 0.358-3.740 [facility] Comment on above: Performed By: #### T EMMETT, LIPID, CMP #### [facility] [address] [place] [address] Dr. Rossana Barth XR DEXA BONE DENSITYon [...] by: TACO FRANKLIN Date: 2022-04-07 09:[address] [facility] PAP ACOG PANEL 2: 30 to 65on 03-02-[address] [facility] Comment on above: Result Comment: Perf ormed at: WB Performed By: #### [id number] #### [facility] [address] [place] [address] [address] Rossana Barth Age Gdln ACOG Testing 30-65 [facility] Comment on above: Performed By: #### [id number] #### [facility] [address] [place] [address] [address] Rossana Barth DIAGNOSIS: Comment Normal [facility] Comment on above: Result Comment: NEGA TIVE FOR INTRAEPITHELIAL LESION OR MALIGNANCY. Performed at: WB Performed By: #### 4 [id number] #### [facility] [address] [place] [address] [address] Rossana Barth HPV Aptima Negative Normal Negative [facility] Comment on above: Result Comment: This nucleic acid amplification test detects fourteen high-risk HPV types (16,18,31,33,35,39,45,51,52,56,58,59,66,68) without differentiation. Performed at: =G Performed By: #### [id number] #### [facility] [address] [place] [address] [address] Rossana Barth Methodology: Comment Normal [facility] Comment on above: Result Comment: This liquid based ThinPrep(R) pap test was screened with the use of an image guided system. Performed at: WB Performed By: #### [id number] #### [facility] [address] [place] [address] [address] Rossana Barth Note: Comment Normal [facility] Comment on above: Result Comment: The Pap smear is a screening test designed to aid in the detection of premalignant and malignant conditions of the uterine cervix. It is not a diagnostic procedure and should not be used as the sole means of detecting cervical cancer. Both false-positive and false-negative reports do occur. . Performed at: WB Performed By: #### [id number] #### [facility] [address] [place] [address] [address] Rossana Barth Performed by: Comment Normal [facility] Comment on above: Result Comment: Kimmie Patel Wet Roller (ASCP) Performed at: WB Performed By: #### [id number] #### [facility] [address] [place] [address] [address] Rossana Barth Specimen adequacy: Comment Normal [facility] Comment on above: Result Comment: Sati sfactory for evaluation. Performed at: WB Performed By: #### [id number] #### [facility] [address] [place] [address] [address] Rossana Barth Operative Reporton 9 Operative Report [facility] OPERATIVE RECORD ELVIA DELGADO [facility] [id number] ASC OSCAR SORIANO MD [id number] SURGEON: Oscar Soriano MD DATE OF OPERATION: 06/23/2019 PREOPERATIVE DIAGNOSIS: Bilateral mammary hypoplasia, status post previous saline breast augmentation subpectoral. POSTOPERATIVE DIAGNOSIS: Bilateral mammary hypoplasia, status post previous saline breast augmentation subpectoral. PROCEDURE: Bilateral saline breast implant explantation, intact SAP SPECIALIST: Priyanka Santacruz PA-C. ANESTHESIA: General LMA. ESTIMATED [...] to the recovery room in satisfactory condition. MD TAYLA SWEET/Bridgette /[id number] Normal [facility] Vital Signs Date Time Vital Sign Value Performing Clinician Facility 05-04-2023 15:20-0400 Blood Pressure Location [facility] [place] 05-04-2023 15:20-0400 Diastolic blood pressure 90 mm[Hg] [facility] [place] 05-04-2023 15:20-0400 Heart rate 80 /min Oli NILL [facility] [place] 05-04-2023 15:20-0400 Respiratory rate 16 /min Oli NILL [facility] [place] 05-04-2023 15:20-0400 Systolic blood pressure 128 mm[Hg] Oli NILL [facility] [place] 09-28-2022 16:35-0400 Body height 157.48 cm Esperanza Ayon Other [facility] Other 09-28-2022 16:35-0400 Body mass index (BMI) [Ratio] 25.6 kg/m2 Esperanza Nany Other [facility] Other 09-28-2022 16:35-0400 Body temperature 98.9 [degF] Esperanza Nany Other [facility] Other 09-28-2022 16:35-0400 Body weight 63.5 kg Esperanza Ayon Other [facility] Other 09-28-2022 16:35-0400 Respiratory rate 18 /min Esperanza Ayon Other [facility] Other 09-28-2022 16:35-0400 SaO2% (BldA) [Mass fraction] 95 % Esperanza Ayon Other [facility] Other Encounters Encounter Date Encounter Type Care Provider Facility Start: 12-23-2023 End: 12-23-2023 ambulatory DIONNE TIMOTHY Not Available Start: 12-03-2023 End: 12-03-2023 ambulatory Dionne Salomono Facility:[facility] Start: 12-03-2023 End: 12-03-2023 ambulatory Dionne Salomono Work Phone: [facility] Work Phone: Start: 12-03-2023 End: 12-03-2023 Departed Referred Dionne Salomono Work Phone: [facility] Start: 11-04-2023 End: 11-04-2023 ambulatory DIONNE SALOMONO Not Available Start: 06-02-2023 End: 06-03-2023 ambulatory Oli NAILS Facility:[id number] Start: 05-04-2023 End: 05-05-2023 ambulatory Oli NAILS Facility: [facility] Start: 05-04-2023 End: 05-04-2023 Patient encounter procedure Oli NAILS [facility] Start: 03-30-2023 ambulatory Oli NAILS Facility:[facility] Start: 09-28-2022 Office outpatient ne w 20 minutes Esperanza Ayon [facility] Start: 09-28-2022 End: 09-28-2022 ambulatory Esperanza Ayon Other [facility] [employer] Other Start: 07-09-2022 End: 07-10-[address] DELROY GONSALES Facility:[facility] Start: 07-06-2022 Encounter for gynecological examination (general) (routine) without abnormal findings DR DIONNE AGUIRRE [facility] Start: 04-19-2022 End: 04-19-[address] DELROY GONSALES Facility:[facility] Start: 04-12-2022 End: 04-12-[address] DELROY GONSALES Facility:[facility] Start: 04-07-2022 End: 04-08-[address] DIONNE AGUIRRE Facility:[facility] Start: 02-25-2022 End: 02-25-[address] DIONNE AGUIRRE Facility:[facility] Procedures Date Procedure Procedure Detail Performing Clinician Start: 05-30-2008 Large intestine excision Oli NILL Start: 12-30-2007 Colonoscopy Oli NI LL Appendectomy Oli NILL Arthroscopy of shoulder Toby aevioletta NILL Augmentation mammoplasty Arie mcmahon NILL Bilateral implant of silicone into breast [...] Immunization Date Immunization Notes Care Provider Fa cility 12-02-2020 SARS-CoV-2 (COVID-19 ) mRNA BNT-162b2 vax Oli NILL [facility] [place] 11-07-2020 SARS-CoV-2 (COVID-19 ) mRNA BNT-162b2 vax Oli NILL [facility] [place] Payers Date Payer Category Payer Self-pay 2022 [facility] Blue Shield [id number] 2019 Unknown [id number] 1965 Unknown [id number] 2.16.84 [id number] 1964 Unknown [id number] 2.16.84 [id number] 1964 Unknown [id number] 2.16.84 [id number] 1964 Unknown [id number] 2.16.84 [id number] 1964 Unknown [id number] 2.16.84 [id number] 1964 Unknown [id number] 2.16.8 [id number] 1964 Unknown [id number] 2.16.8 [id number] 1964 Unknown [id number] 2.16.84 [id number] 1964 Unknown [id number] 2.16.84 [id number] Social History Date Type Detail Facility Sex Assigned At [facility] Start: 05-04-2023 Tobacco smoking status Never s moked tobacco (finding) [facility] [place] Tobacco smoking status Never [facility] [place] Start: 1965 Sex Assigned At Female [facility] Functional Status Date Assessment Result Facility 05-04-2023 [facility]23 Note Date & [...] Diabetes mellitus ty (more content not included)... [facility] Comment on above: Result Comment: Elec tronically Signed By: JAQUI MEJIA, Oli Mark\Date and Time Signed: 05/04/23 15:51 EDT Evaluation [...] weeks for the cough to go away [facility] Other Evaluation + Plan note Note Date & Type Note Facility Evaluation + Plan note No data available for this section [facility] Evaluation note Note Date & Type Note [facility] general Narrative - Reported Note Date & Type Note Facility History general Narrative - Reported Type Medical History Hypothyroidism Medical History high cholesterol Surgical History Retinal surgery [facility] Other Hospital Discharge instructions Note Date & Type Note Facility Hospital Discharge instructions No data available for this section [facility] Progress note Note Date & Type Note Facility Progress note No data available for this section [facility] Summary Purpose Family History No Family History Records Found Relationship Condition Age at Onset Recorded Date/T taiwo father Diabetes mellitus Unknown Unknown Heart disease Unknown Advance Directives No Advanced Directives Records FoundNo Advanced Directives Records FoundNo Advanced Directives Records FoundNo Advanced Directives Records FoundNo Advanced Directives Records Found Additional Source Comments INFORMATION SOURCE (unrecogn ized section and content) DATE CREATED AUTHOR 06/27/2019 [facility] DATE CREATED AUTHOR AUTHOR'S ORGANIZ ATION 07/16/2022 [facility] DATE CREATED AUTHOR AUTHOR'S ORGANIZ ATION 06/19/2023 [facility] DATE CREATED AUTHOR AUTHOR'S ORGANIZ ATION 12/09/2023 [facility] DATE CREATED AUTHOR AUTHOR'S ORGANIZ ATION 12/24/2023 [facility] EPIC REASON FOR VISIT (unrecogniz ed section and content) CONGESTION, COUGH Patient Care team informatio n (unrecognized section and content) Team Status: Inactive Member Role Status Dates Dionne Aguirre Attending Provider Active Start: Tuan santiago 2023 End: December 03, 2023 Goals (unrecognized section and content) Goals may be documented in a n alternate section FOR RECORDS PERTAINING TO PATIENTS WHO ARE [...] BE BASED ON THE PRIMARY CLINICAL RECORDS. [employer] provides no warranty or guarantee of the accuracy or completeness of information in this document.
[2024-05-15 07:01] LABS: Basophils Percent Auto 0.7 % (0.2-2.0); Eosinophils Absolute Auto 0.2 10^3/uL (0.0-0.7); Eosinophils Percent Auto 3.5 % (0.9-7.0); Hematocrit 39.6 % (36.0-48.0); Hemoglobin 13.1 g/dL (12.0-16.0); Immature Granulocytes Abs Auto 0.01 10^3/uL (0.00-0.03); Immature Granulocytes Pct Auto 0.2 % (0.0-0.5); Lymphocytes Absolute Auto 2.1 10^3/uL (1.2-3.8); Lymphocytes Percent Auto 48.3 % (20.5-60.0); Mean Corpuscular HGB Conc 33.1 g/dL (29.9-35.2); Mean Corpuscular Hemoglobin 32.6 pg (26.7-34.0); Mean Corpuscular Volume 98.5 fL (81.0-99.0); Mean Platelet Volume 8.9 fL (9.5-13.5); Monocytes Absolute Auto 0.4 10^3/uL (0.3-0.8); Monocytes Percent Auto 10.2 % (1.7-12.0); Neutrophils Absolute Auto 1.6 10^3/uL (1.4-6.5); Neutrophils Percent Auto 37.1 % (43.0-75.0); Platelet Count 281 10^3/uL (150-450); Red Blood Count 4.02 10^6/uL (4.20-5.40); Red Cell Distribution Width 12.1 % (11.0-15.0); White Blood Count 4.3 10^3/uL (4.0-11.0)
[2024-05-15 07:44] LABS: Estimated Average Glucose 108 mg/dL; Glycohemoglobin A1C 5.4 % (4.5-6.2)
[2024-05-15 07:53] LABS: Alanine Aminotransferase 69 U/L (14-59); Albumin Globulin Ratio 1.1; Albumin Level 3.6 g/dL (3.4-5.0); Alkaline Phosphatase 82 U/L (46-116); Anion Gap 14.1; Aspartate Amino Transferase 35 U/L (15-37); BUN Creatinine Ratio 12.8; Bilirubin Total 0.3 mg/dL (0.2-1.0); Calcium 8.8 mg/dL (8.5-10.1); Carbon Dioxide 28.1 mmol/L (21.0-32.0); Chloride 106 mmol/L (98-107); Chol HDL Ratio 2.2; Cholesterol 206 mg/dL (<=200); Estimated GFR (African America >60 (>=60 mL/min/1.73m^2); Estimated GFR (Non-African Ame >60 (>=60 mL/min/1.73m^2); Globulin 3.4 g/dL; Glucose 90 mg/dL (74-106); HDL Cholesterol 94 mg/dL (40-60); Potassium 4.2 mmol/L (3.5-5.1); Sodium 144 mmol/L (136-145); Thyroid Stimulating Hormone 0.016 uIU/mL (0.358-3.740); Triglycerides 104 mg/dL (<=150); VLDL CHOLESTEROL 20.8 mg/dL
== END 2024-05-15 06:31 | disposition home or self-care (01) ==
LOC: LAB 06:30
PROVIDERS: PCP Family Medicine; Visit Provider Family Medicine
DX: Z00.00 Encounter for general adult medical examination without abnormal findings (principal)
CPT/HCPCS: 36415; 80053; 80061; 83036; 84443; 85025

== ENCOUNTER 2024-05-24 07:06 | Outpatient (OUT) | payer BC, SELFPAY ==
--- OUTSIDE RECORDS SUMMARY | 2024-05-24 07:09 | XMS_ITS | CCD ---
Author Organization [facility] Inform ion Partnership [facility] Care Team Providers Care Can Stacker Name Role Phone DR DIONNE AGUIRRE Attending [...] GONSALES, DR DELROY Mera Primary Care Unavailable ASHLAND, DR TACO Melgar Consulting Unavailable TIMOTHY, DR TRUONG Consulting Unavailable Esperanza Ayon Unavailable CONSTANTINE GARCIA Primary Care Physician Oli NAILS Attending Unavailable ELIZABETH SHANNON Referring Unavailable Oli NAILS Attending Unavailable Dionne Aguirre Attending Unavailable Dionne Aguirre Admitting Unavailable Dionne Aguirre Attending Provider [phone] DIONNE AGUIRRE Attending Unavailable DIONNE AGUIRRE Attending Unavailable Allergies Allergy Classification Reported Allergen(s) Allergy Type Date of Onset Reaction(s) Facility (1 source) benzoin resin Drug Allergy 6 [facility] Repository (2 sources) Codeine; Translations: [codeine] Drug Allergy [facility] Repository (1 source) Morpholine Analogues Drug allergy (disorder) [facility] Repository (1 source) Codeine; Translations: [codeine] Drug Allergy Gastrointestinal irritation (disorder) [facility] [place] (2 sources) metroNIDAZOLE; Translations: [metronidazole] Drug Allergy Itching (finding) [facility] [place] (2 sources) Morphine; Translations: [morphine] Drug Allergy Gastrointestinal irritation (disorder) [facility] [place] Medications Current Medications Medication Drug Class(es) Dates Sig (Normalized) Sig (Original) [id number] 200 actuat albuterol 0.09 mg/actuat metered dose [...] Test Name Value Interpretation Reference Range Facility [facility] 12-03-2023 L Specimen: [id number] Received: 12/03/23 Status: MONET Fallonjodi Num: [id number] Spec Type: Surgical Subm Dr: Dionne Aguirre Tissues: A Endometrium - Curettings (EMC) Procedures: HE/2, Gross/Micro L4 Age/ Patient Sex Location Account Attending Physician Elvia Delgado 58/F LABELL [id number] Dionne Aguirre SPEC NUM: [id number] RECD: 12/03/23 STATUS: MONET VALLEJO NUM: [id number] KALEY: 12/03/[address]: Dionne Aguirre ENTERED: 12/03/[address] [facility] [address]: González,Lab SPEC TYPE: Surgical DEPT: ZBIGNIEW [...] cm, entirely submitted in A1. CPT Codes 55271 Specimen: [id number] Received: 12/03/23 Status: MONET Vallejo Num: [id number] Spec Type: Surgical Subm Dr: Dionne Aguirre Tissues: A Endometrium - Curettings (EMC) Procedures: HE/2, Gross/Micro L4 Patient: Elvia Delgado [id number] (Continued) Signed (signature on file) James Barth MD 12/06/231941 Normal [facility] Outside Colonoscopyon 2022 Outside Colonoscopy [id number] #1.00TIFF Normal [facility] Reminderson 06-03-2023 Reminders - From: Arabella Duffy LPN To: SANDORN - Clinical; Sent: 06/03/2023 14:12:11 EST Show up: 05/02/2033 07:00:00 EDT Subject: colonoscopy recall Due Date/Time: 06/02/2033 07:00:00 EST Reminder/Recall Patient due for screening colonoscopy 06/02/2033. Normal [facility] Insurance Correspondenceon 1 Insurance Correspondence [id number] 9#1.00TIFF [facility] Consent for Procedure/Surger yon 05-05-2023 Consent for Procedure/Surgery [id number] 9#1.00TIFF [facility] Facesheeton 05-05-2023 Facesheet [id number] 4#1.00TIFF [facility] Ambulatory Visit Summaryon 1 Ambulatory Visit [...] DVT (deep vein thrombosis) Hypercholesterolemia Hypothyroidism Normal [facility] Historical Records Officeon 04-19-2023 Historical Records Office [id number] #1.00CD:127 Normal [facility] Physician Referralon 023 Physician Referral [id number]# 1.00CD:127 Normal [facility] Physician Referral [id number] #1.00CD:127 Normal [facility] Outside Mammographyon 2022 Outside Mammography [id number] #1.00CD:127 Normal [facility] Physician Referralon 023 Physician Referral [id number] #1.00CD:127 Normal [facility] FREE T3on 07-09-2022 FREE T3 2.65 pg/mlL Normal 2.18-3.98 [facility] Comment on above: Performed By: #### F T3 ####[facility] [address] [place], [place] [address]UmDr. Rossana Barth FREE T4on 07-09-2022 Free T4 [Mass/Vol] 1.14 ng/dL Normal 0.76-1.46 [facility] Comment on above: Performed By: #### F T4 #### [facility] Laboratory [address] [place], [place] [address] Dr. Rossana Barth Covid-19 PCR (CVDTB)on SARS-CoV-2 (COVID-19) RNA JAY+probe Ql (Unsp spec) Not detected Normal NOT DETECTED [facility] Comment on above: Result Comment: When diagnostic [...] for this test is supported by the [facility] [employer] of Health and Human Service's declaration that [...] be used). Performed By: #### C VDTB ####[facility] [address] [place], [place] [address]WpDr. Rossana Barth Covid-19 PCR (CVDTB)on 03-20 SARS-CoV-2 (COVID-19) RNA JAY+probe Ql (Unsp spec) Detected Critically abnormal NOT DETECTED [facility] Comment on above: Result Comment: This test is not yet approved or cleared by the [place] FDA. When there are no FDA-approved or cleared tests available, and other criteria are met, FDA can make tests available under an emergency access mechanism called an Emergency Use Authorization (EUA). The EUA for this test is supported by the [place] of Health and Human Service's declaration that [...] used). Performed By: #### C VDTB #### [facility] [address] [place], [place] [address] Dr. Rossana Barth CBC AUTO DIFFon 04-07-2022 BASO # 0.1 103/ul Normal 0.0-0.1 [facility] Comment on above: Performed By: #### C BC #### [facility] [address] [place] [address] [address] Rossana Barth Basophils/100 WBC (Bld) 1.1 % Normal 0.2-2.0 [facility] Comment on above: Performed By: #### C BC #### [facility] [address] [address] [address] Rossana Barth EO # 0.1 103/ul Normal 0.0-0.7 [facility] Comment on above: Performed By: #### C BC #### [facility] [address] [place] [address] Dr. Rossana Barth Eosinophils/100 WBC (Bld) 2.6 % Normal 0.9-7.0 [facility] Comment on above: Performed By: #### C BC #### [facility] [address] [place] [address] Dr. Rossana Barth Erythrocyte distribution width (RBC) [Ratio] 12.5 % Normal 11.0-15.0 [facility] Comment on above: Performed By: #### C BC #### [facility] [address] [place] [address] Dr. Rossana Barth Hematocrit (Bld) [Volume fraction] 40.2 % Normal 36.0-48.0 [facility] Comment on above: Performed By: #### C BC #### [facility] [address] [place] [address] Dr. Rossana Barth Hemoglobin (Bld) [Mass/Vol] 13.3 g/dL Normal 12.0-16.0 [facility] Comment on above: Performed By: #### C BC #### [facility] [address] [place] [address] Dr. Rossana Barth IG # 0.01 10e3/ul Normal 0.00-0.03 [facility] Comment on above: Performed By: #### C BC #### [facility] [address] [place] [address] Dr. Rossana Barth IG % 0.2 % Normal 0.0-0.5 [facility] Comment on above: Performed By: #### C BC #### [facility] [address] [place] [address] Dr. Rossana Barth LYMPH # 2.1 103/ul Normal 1.2-3.8 [facility] Comment on above: Performed By: #### C BC #### [facility] [address] [place] [address] Dr. Rossana Barth Lymphocytes/100 WBC (Bld) 44.7 % Normal 20.5-60.0 [facility] Comment on above: Performed By: #### C BC #### [facility] [address] [place] [address] Dr. Rossana Barth MANUAL DIFF REQ NO Normal [facility] Comment on above: Performed By: #### C BC #### [facility] [address] [place] [address] Dr. Rossana Barth MCH (RBC) [Entitic mass] 32.4 pg Normal 26.7-34.0 [facility] Comment on above: Performed By: #### C BC #### [facility] [address] [place] [address] Dr. Rossana Barth MCHC (RBC) [Mass/Vol] 33.1 g/dL Normal 29.9-35.2 [facility] Comment on above: Performed By: #### C BC #### [facility] [address] [place] [address] Dr. Rossana Barth MCV (RBC) [Entitic vol] 98.0 fL Normal 81.0-99.0 [facility] Comment on above: Performed By: #### C BC #### [facility] [address] [place] [address] Dr. Rossana Barth MONO # 0.5 103/ul Normal 0.3-0.8 [facility] Comment on above: Performed By: #### C BC #### [facility] [address] [place] [address] Dr. Rossana Barth Monocytes/100 WBC (Bld) 9.8 % Normal 1.7-12.0 [facility] Comment on above: Performed By: #### C BC #### [facility] [address] [place] [address] [address] Rossana Barth NEUT # 2.0 103/ul Normal 1.4-6.5 [facility] Comment on above: Performed By: #### C BC #### [facility] [address] [place] [address] [address] Rossana Barth Neutrophils/100 WBC (Bld) 41.6 % Critically low 43.0-75.0 [facility] Comment on above: Performed By: #### C BC #### [facility] [address] [place] [address] [address] Rossana Barth Platelet mean volume (Bld) [Entitic vol] 9.1 fL Critically low 9.5-13.5 [facility] Comment on above: Performed By: #### C BC #### [facility] [address] [place] [address] Dr. Rossana Barth PLT 305 103/ul Normal 150-450 [facility] Comment on above: Performed By: #### C BC #### [facility] [address] [place] [address] [address] Rossana Barth RBC 4.10 106/ul Critically low 4.20-5.40 [facility] Comment on above: Performed By: #### C BC #### [facility] [address] [place] [address] [address] Rossana Barth WBC 4.7 103/ul Normal 4.0-11.0 [facility] Comment on above: Performed By: #### C BC #### [facility] [address] [place] [address] Dr. Rosasna Barth GLYCOHEMOGLOBIN A1Con 2021 ADA RECOMMENDATION SEE BELOW Normal [facility] Comment on above: Result Comment: ADA RECOMMENDED LIMIT 4.0 - 6.0 ADA THERAPEUTIC TARGET < 7.0 ACTION SUGGESTED > 7.0 Performed By: #### A 1C #### [facility] [address] [place] [address] Dr. Rossana Barth Glucose [Mass/Vol] 111 mg/dL Normal [facility] Comment on above: Performed By: #### A 1C #### [facility] [address] [place] [address] [address] Rossana Barth HbA1c (Bld) [Mass fraction] 5.5 % Normal 4.5-6.2 [facility] Comment on above: Performed By: #### A 1C #### [facility] [address] [place] [address] Dr. Rossana Barth LIPID PROFILEon 04-07-2022 CHOL-HDL RATIO NORM SEE BELOW Normal [facility] Comment on above: Result Comment: 3.3 - 4.4 LOW RISK 4.4 - 7.1 AVERAGE RISK 7.1 - 11.0 MODERATE RISK >11.0 HIGH RISK Performed By: #### T SH, LIPID, CMP #### [facility] [address] [place] [address] Dr. Rossana Barth Cholesterol [Mass/Vol] 257 mg/dL Critically high <=200 [facility] Comment on above: Performed By: #### T EMMETT, LIPID, CMP #### [facility] [address] [place] [address] Dr. Rossana Barth Cholesterol in HDL [Mass/Vol] 96 mg/dL Critically high 40-60 [facility] Comment on above: Performed By: #### T EMMETT, LIPID, CMP #### [facility] [address] [place] [address] [address] Rossana Barth Cholesterol in LDL [Mass/Vol] 133.2 mg/dL Normal [facility] Comment on above: Performed By: #### T SH, LIPID, CMP #### [facility] [address] [place] [address] Dr. Rossana Barth Cholesterol.total/Cho lesterol in HDL [Mass ratio] 2.7 {ratio} Normal [facility] Comment on above: Performed By: #### T SH, LIPID, CMP #### [facility] [address] [place] [address] Dr. Rossana Barth HDL NORMAL > or = 60 mg/dl - LOW CARDIOVASCULAR RISK <40 mg/dl - HIGH CARDIOVASCULAR RISK Normal [facility] Comment on above: Performed By: #### T SH, LIPID, CMP #### [facility] [address] [place], [place] [address] Dr. Rossana Barth LDL CALC NORMAL SEE BELOW Normal [facility] Comment on above: Result Comment: <100 mg/dl OPTIMAL 100 - 129 mg/dl NEAR OR ABOVE OPTIMAL 130 - 159 mg/dl BORDERLINE HIGH 160 - 189 mg/dl HIGH >190 mg/dl VERY HIGH Performed By: #### T SH, LIPID, CMP #### [facility] [address] [place], [place] [address] Dr. Rossana Barth Triglyceride [Mass/Vol] 139 mg/dL Normal <=150 [facility] Comment on above: Performed By: #### T SH, LIPID, CMP #### [facility] [address] [place], [place] [address] Dr. Rossana Barth VLDL CALC 27.8 mg/dL Normal [facility] Comment on above: Performed By: #### T SH, LIPID, CMP #### [facility] [address] [place] [address] [address] Rossana Barth MG MAMM SCREEN 3D ANA CADon 04-07-2022 MG MAMM SCREEN 3D ANA CAD Patient: ELVIA DELGADO Exam Date: 04/07/2022 : 1965 Gender:F Ordering : DR DIONNE AGUIRRE . Admission #: [id number] Family : DR DELROY GONSALES . Order #: [id number] CLICK HERE TO VIEW EXAM RADIOLOGY REPORT [...] breast cancer at age 64. LOCATION: [facility] BREAST COMPOSITION: Scattered areas fibroglandular density. FINDINGS: [...] Franklin MD on 04/07/2022 at 10:11 Normal [facility] PROF 14(COMP METB)on 022 Albumin [Mass/Vol] 4.1 g/dL Normal 3.4-5.0 [facility] Comment on above: Performed By: #### T SH, LIPID, CMP #### [facility] [address] [place] [address] Dr. Rossana Barth Albumin/Globulin [Mass ratio] 1.3 {ratio} Normal [facility] Comment on above: Performed By: #### T SH, LIPID, CMP #### [facility] [address] [place] [address] Dr. Rossana Barth ALP [Catalytic activity/Vol] 70 U/L Normal 46-116 [facility] Comment on above: Performed By: #### T SH, LIPID, CMP #### [facility] [address] [place] [address] Dr. Rossana Barth ALT [Catalytic activity/Vol] 57 U/L Normal 14-59 [facility] Comment on above: Performed By: #### T SH, LIPID, CMP #### [facility] [address] [place] [address] Dr. Rossana Barth Anion gap [Moles/Vol] 9.4 mmol/L Normal [facility] Comment on above: Performed By: #### T SH, LIPID, CMP #### [facility] [address] [place] [address] Dr. Rossana Barth AST [Catalytic activity/Vol] 25 U/L Normal 15-37 [facility] Comment on above: Performed By: #### T SH, LIPID, CMP #### [facility] [address] [place] [address] Dr. Rossana Barth Bilirubin [Mass/Vol] 0.4 mg/dL Normal 0.2-1.0 [facility] Comment on above: Performed By: #### T SH, LIPID, CMP #### [facility] [address] [address] [address] Rossana Barth Calcium [Mass/Vol] 9.3 mg/dL Normal 8.5-10.1 [facility] Comment on above: Performed By: #### T SH, LIPID, CMP #### [facility] [address] [place] [address] Dr. Rossana Barth Chloride [Moles/Vol] 103 mmol/L Normal 98-107 [facility] Comment on above: Performed By: #### T SH, LIPID, CMP #### [facility] [address] [place] [address] Dr. Rossana Barth CO2 [Moles/Vol] 30.6 mmol/L Normal 21.0-32.0 [facility] Comment on above: Performed By: #### T SH, LIPID, CMP #### [facility] [address] [place] [address] Dr. Rossana Barth Creatinine [Mass/Vol] 0.83 mg/dL Normal 0.55-1.02 [facility] Comment on above: Performed By: #### T SH, LIPID, CMP #### [facility] [address] [place] [address] Dr. Rossana Barth EGFR-AF GUATEMALAN >60 Normal >=60 [facility] Comment on above: Performed By: #### T SH, LIPID, CMP #### [facility] [address] [place] [address] Dr. Rossana Barth EGFR-NON AF GUATEMALAN >60 Normal >=60 [facility] Comment on above: Performed By: #### T SH, LIPID, CMP #### [facility] [address] [place] [address] Dr. Rossana Barth Globulin (S) [Mass/Vol] 3.2 g/dL Normal [facility] Comment on above: Performed By: #### T SH, LIPID, CMP #### [facility] [address] [place] [address] Dr. Rossana Barth Glucose [Mass/Vol] 97 mg/dL Normal 74-106 [facility] Comment on above: Performed By: #### T SH, LIPID, CMP #### [facility] [address] [place] [address] Dr. Rossana Barth Potassium [Moles/Vol] 4.0 mmol/L Normal 3.5-5.1 [facility] Comment on above: Performed By: #### T SH, LIPID, CMP #### [facility] [address] [place] [address] Dr. Rossana Barth Protein [Mass/Vol] 7.3 g/dL Normal 6.4-8.2 [facility] Comment on above: Performed By: #### T SH, LIPID, CMP #### [facility] [address] [place] [address] Dr. Rossana Barth Sodium [Moles/Vol] 139 mmol/L Normal 136-145 [facility] Comment on above: Performed By: #### T SH, LIPID, CMP #### [facility] [address] [place] [address] Dr. Rossana Barth Urea nitrogen [Mass/Vol] 12.0 mg/dL Normal 7.0-18.0 [facility] Comment on above: Performed By: #### T EMMETT, LIPID, CMP #### [facility] [address] [place] [address] Dr. Rossana Barth Urea nitrogen/Creatinine [Mass ratio] 14.5 mg/mg Normal [facility] Comment on above: Performed By: #### T EMMETT, LIPID, CMP #### [facility] [address] [place] [address] Dr. Rossana Barth TSHon 04-07-2022 TSH 3.022 uIU/mL Normal 0.358-3.740 [facility] Comment on above: Performed By: #### T EMMETT, LIPID, CMP #### [facility] [address] [place] [address] Dr. Rossana Barth XR DEXA BONE DENSITYon [...] by: TACO FRANKLIN Date: 2022-04-07 09:24 Normal [facility] PAP ACOG PANEL 2: 30 to 65on 03-02-2022 . . Normal [facility] Comment on above: Result Comment: Perf ormed at: WB Performed By: #### [id number] #### [facility] [address] [address] [address] Rossana Barth Age Gdln ACOG Testing 30-65 [facility] Comment on above: Performed By: #### [id number] #### [facility] [address] [place] [address] [address] Rossana Barth DIAGNOSIS: Comment Normal [facility] Comment on above: Result Comment: NEGA TIVE FOR INTRAEPITHELIAL LESION OR MALIGNANCY. Performed at: WB Performed By: #### [id number] #### [facility] [address] [address] [address] Rossana Barth HPV Aptima Negative Normal Negative [facility] Comment on above: Result Comment: This nucleic acid amplification test detects fourteen high-risk HPV types (16,18,31,33,35,39,45,51,52,56,58,59,66,68) without differentiation. Performed at: =G Performed By: #### 4 [id number] #### [facility] [address] [address] [address] Rossana Barth Methodology: Comment Normal [facility] Comment on above: Result Comment: This liquid based ThinPrep(R) pap test was screened with the use of an image guided system. Performed at: WB Performed By: #### [id number] #### [facility] [address] [address] [address] Rossana Barth Note: Comment Normal [facility] Comment on above: Result Comment: The Pap smear is a screening test designed to aid in the detection of premalignant and malignant conditions of the uterine cervix. It is not a diagnostic procedure and should not be used as the sole means of detecting cervical cancer. Both false-positive and false-negative reports do occur. . Performed at: WB Performed By: #### [id number] #### [facility] [address] [address] [address] Rossana Barth Performed by: Comment Normal [facility] Comment on above: Result Comment: Kimmie Patel [employer]er (ASCP) Performed at: WB Performed By: #### [id number] #### [facility] [address] [address] [address] Rossana Barth Specimen adequacy: Comment Normal [facility] Comment on above: Result Comment: Sati sfactory for evaluation. Performed at: WB Performed By: #### [id number] #### [facility] [address] [address] [address] Rossana Barth Operative Reporton 9 Operative Report [facility] OPERATIVE RECORD [facility]VIA DELGADO [facility] [id number] ASC OSCAR SORIANO MD [id number] SURGEON: Oscar Soriano MD DATE OF OPERATION: 06/23/2019 PREOPERATIVE DIAGNOSIS: Bilateral mammary hypoplasia, status post previous saline breast augmentation subpectoral. POSTOPERATIVE DIAGNOSIS: Bilateral mammary hypoplasia, status post previous saline breast augmentation subpectoral. PROCEDURE: Bilateral saline breast implant explantation, intact LADIES ATTENDANT: Priyanka Santacruz PA-C. ANESTHESIA: General LMA. ESTIMATED [...] room in satisfactory condition. MD TAYLA SWEET/Bridgette /[id number] Normal [facility] Vital Signs Date Time Vital Sign Value Performing Clinician Facility 05-04-2023 15:20-0400 Blood Pressure Location Oli NILL [facility] [place] 05-04-2023 15:20-0400 Diastolic blood pressure 90 mm[Hg] Oli NILL [facility] [place] 05-04-2023 15:20-0400 Heart rate 80 /min Oli NILL [facility] [place] 05-04-2023 15:20-0400 Respiratory rate 16 /min Oli NILL [facility] [place] 05-04-2023 15:20-0400 Systolic blood pressure 128 mm[Hg] Oli NILL [facility] [place] 09-28-2022 16:35-0400 Body height 157.48 cm Esperanza Ayon Other [place] Other 09-28-2022 16:35-0400 Body mass index (BMI) [Ratio] 25.6 kg/m2 Esperanza Nany Other [place] Other 09-28-2022 16:35-0400 Body temperature 98.9 [degF] Esperanza Nany Other [place] Other 09-28-2022 16:35-0400 Body weight 63.5 kg Esperanza Ayon Other [place] Other 09-28-2022 16:35-0400 Respiratory rate 18 /min Esperanza Ayon Other [place] Other 09-28-2022 16:35-0400 SaO2% (BldA) [Mass fraction] 95 % Esperanza Ayon Other [place] Other Encounters Encounter Date Encounter Type Care Provider Facility Start: 12-23-2023 End: 12-23-2023 ambulatory DIONNE TIMOTHY Not Available Start: 12-03-2023 End: 12-03-2023 ambulatory Dionne Salomono Facility:[facility] Start: 12-03-2023 End: 12-03-2023 ambulatory Dionne Salomono Work Phone: [facility] Work Phone: Start: 12-03-2023 End: 12-03-2023 Departed Referred Dionne Salomono Work Phone: [facility] Start: 11-04-2023 End: 11-04-2023 ambulatory DIONNE SALOMONO Not Available Start: 06-02-2023 End: 06-03-2023 ambulatory Oli NAILS Facility:[id number] Start: 05-04-2023 End: 05-05-2023 ambulatory Oli NAILS Facility: [facility] Start: 05-04-2023 End: 05-04-2023 Patient encounter procedure Oli NAILS General Surgery [facility] Start: 03-30-2023 ambulatory Oli NAILS Facility:[facility] Start: 09-28-2022 Office outpatient ne w 20 minutes Esperanza Ayon [facility] [place] Start: 09-28-2022 End: 09-28-2022 ambulatory Esperanza Ayon Other [place] Other Start: 07-09-2022 End: 07-10-[address] DELROY GONSALES Facility:[facility] Start: 07-06-2022 Encounter for gynecological examination (general) (routine) without abnormal findings DR DIONNE AGUIRRE [facility] Start: 04-19-2022 End: 04-19-[address] DELROY [...] mRNA BNT-162b2 vax Oli NILL General Surgery [place] 11-07-2020 SARS-CoV-2 (COVID-19 ) mRNA BNT-162b2 vax Oli NILL General [facility] [place] Payers Date Payer Category Payer Self-pay 2022 [facility] Blue Shield [id number] 2019 Unknown [id number] 1965 Unknown [id number] 2.16.84 [id number] 1965 Unknown [id number] 2.16.84 [id number] 1965 Unknown [id number] 2.16.84 [id number] 1965 Unknown [id number] 2.16.84 [id number] 1965 Unknown [id number] 2.16.84 [id number] 1965 Unknown [id number] 2.16.8 [id number] 1965 Unknown [id number] 2.16.8 [id number] 1965 Unknown [id number] 2.16.84 [id number] 1965 Unknown [id number] 2.16.84 [id number] Social History Date Type Detail Facility Sex Assigned At [facility] Start: 05-04-2023 Tobacco smoking status Never s moked tobacco (finding) General [facility] [place] Tobacco smoking status Never Gener al Surgery [place] Start: 1965 Sex Assigned At Female F [facility] Functional Status Date Assessment Result Facility 05-04-2023 Functional Status N/A [facility] 05-04-2023 Note Date & [...] Diabetes mellitus ty (more content not included)... [facility] Comment on above: Result Comment: Elec tronically [...] weeks for the cough to go away [place] Other Evaluation + Plan note Note Date & Type Note Facility Evaluation + Plan note No data available for this section General Surgery [facility] Evaluation note Note Date & Type Note Facility Evaluation [facility] general Narrative - Reported Note Date & Type Note Facility History general Narrative - Reported Type Medical History Hypothyroidism Medical History high cholesterol Surgical History Retinal surgery [place] Other Hospital Discharge instructions Note Date & [...] section and content) DATE CREATED AUTHOR 06/27/2019 [facility] DATE CREATED AUTHOR AUTHOR'S ORGANIZ ATION 07/16/[address] [facility] DATE CREATED AUTHOR AUTHOR'S ORGANIZ ATION 06/19/2023 [facility] DATE CREATED AUTHOR AUTHOR'S ORGANIZ ATION 12/09/2023 [facility] DATE CREATED AUTHOR AUTHOR'S ORGANIZ ATION 12/24/2023 [facility] EPIC REASON FOR VISIT [...] BE BASED ON THE PRIMARY CLINICAL RECORDS. [email or web address] provides no warranty or guarantee of the accuracy or completeness of information in this document.
--- NOTE | 2024-05-24 07:11 | MM_ITS ---
Patient Name: ROGER MALDONADO MR#: [id number] : 1965 Exam Date: 05/24/2024 Ordering Doctor: DR Michael Aguirre . RADIOLOGY REPORT PROCEDURE: MM TOMOSYNTHESIS SCREENING BI COMPARISON: MM TOMOSYNTHESIS SCREENING BI, 03/30/2023. INDICATIONS: Screening for malignant neoplasm Calculator Name NCI Breast Cancer Risk Assessment Tool 5 Year Breast Cancer Risk 1.10% Lifetime Breast Cancer Risk 5.90% Personal Breast Cancer No Personal Ovarian Cancer No Treatments None Family Cancers Grandmother-maternal with breast cancer at age 80; Grandfather-paternal with colon cancer at age 80; Aunt-paternal with breast cancer at age 65. LOCATION: [facility] BREAST COMPOSITION: There are scattered areas of fibroglandular density. FINDINGS: DIAGNOSTIC CATEGORY 1--NEGATIVE. NO CHANGE FROM COMPARISON ASSESSMENT. Scattered benign-appearing calcifications are present. Scattered benign-appearing lymph nodes are present. RIGHT BREAST: No significant suspicious finding. LEFT BREAST: No significant suspicious finding. RECOMMENDATIONS: ROUTINE MAMMOGRAM AND CLINICAL EVALUATION IN 12 MONTHS. PLEASE NOTE: A NORMAL MAMMOGRAM DOES NOT EXCLUDE THE POSSIBILITY OF BREAST CANCER. A CLINICALLY SUSPICIOUS PALPABLE LUMP SHOULD BE BIOPSIED. Dictated by: Benedict Mauricio MD on 05/24/2024 at 10:25 Approved by: Benedict Mauricio MD on 05/24/2024 at 10:29
== END 2024-05-24 07:07 | disposition home or self-care (01) ==
LOC: MAMMO 07:06
PROVIDERS: PCP Family Medicine; Visit Provider Obstetrics & Gynecology
DX: Z12.31 Encounter for screening mammogram for malignant neoplasm of breast (principal); Z80.3 Family history of malignant neoplasm of breast; Z80.0 Family history of malignant neoplasm of digestive organs
CPT/HCPCS: 77063; 77067

== ENCOUNTER 2025-02-01 13:56 | Outpatient (OUT) | payer BC, SELFPAY ==
--- OUTSIDE RECORDS SUMMARY | 2025-02-01 14:00 | XMS_ITS | Encounter Summary ---
Author Organization [facility] Address [address] [place] [address] Care Team Providers Care Buckler And Lacer Name Role Phone Ne Aguirre MD Primary Care Provider [phone] Oleksandr Elliott MD Unavailable [phone] Encounter Details Date Type Department Care Team (Late st Contact Info) Description 03/30/2023 Clinisync Result Encounter [facility] External Department Unsolicited Georgia Sawant, DEYSI [address] [facility] [address] [place], [place] [id number] Social History Tobacco Use Types Packs/Day Years Used Date Smoking Tobacco: Never Smokeless Tobacco: Never Alcohol Use Standard Drinks/Week Comments Yes 2 (1 standard drink = 0.6 oz pur e alcohol) Humiliation, Afraid, Rape, and Kick questionnair e Answer Date Recorded Within the last year, have y ou been afraid of your partner or ex-partner? No 12/28/2022 Within the last year, have y ou been humiliated or emotionally abused in other ways by your partner or ex-partner? No Within the last year, have y ou been kicked, hit, slapped, or otherwise physically hurt by your partner or ex-partner? No 12/28/2022 Within the last year, have y ou been raped or forced to have any kind of sexual activity by your partner or ex-partner? No 12/28/2022 Social Connection and Isolat ion Panel [NHANES] Answer Date Recorded In a typical week, how many times do you talk on the phone with family, friends, or neighbors? More than three times a week 12/28/2022 How often do you get togethe r with friends or relatives? Twice a week 12/28/2022 How often do you attend chur ch or shinto services? More than 4 times per year 12/28/2022 Do you belong to any clubs o r organizations such as worship groups, unions, fraternal or athletic groups, or school groups? No 12/28/2022 How often do you attend meet ings of the clubs or organizations you belong to? Never 12/28/2022 Are you , , di vorced, , never , or living with a partner? 12/28/2022 AUDIT-C Answer Date Recorded Q1: How often do you have a drink containing alc ohol? 2-3 times a week 12/28/2022 Q2: How many drinks containi ng alcohol do you have on a typical day when you are drinking? 3 or 4 12/28/2022 Q3: How often do you have si x or more drinks on one occasion? Less than monthly 12/28/2022 Overall Financial Resource Strain (CARDIA) Answe r Date Recorded How hard is it for you to pa y for the very basics like food, housing, medical care, and heating? Not hard at all 12/28/2022 [facility] - Occupational Stress Questionnaire Answer Date Recorded Do you feel stress - tense, restless, nervous, or anxious, or unable to sleep at night because your mind is troubled all the time - these days? Only a little 12/28/2022 Exercise Vital Sign Answer Date Recorde d On average, how many days pe r week do you engage in moderate to strenuous exercise (like a brisk walk)? 3 days 12/28/2022 On average, how many minutes do you engage in exercise at this level? 30 min 12/28/2022 Hunger Vital Sign Answer Date Recorded Within the past 12 months, y ou worried that your food would run out before you got the money to buy more. Never true 12/29/19 23 Within the past 12 months, t he food you bought just didn't last and you didn't have money to get more. Never true 12/28/2022 PRAPARE - Transportation Answer Date Re corded In the past 12 months, has l ack of transportation kept you from medical appointments or from getting medications? No 12/17 In the past 12 months, has l ack of transportation kept you from meetings, work, or from getting things needed for daily living? No 12/28/2022 Housing Stability Vital Sign Answer Ben e Recorded In the last 12 months, was t here a time when you were not able to pay the mortgage or rent on time? No 12/28/2022 In the last 12 months, how many places have you lived? 1 12/28/2022 In the last 12 months, was t here a time when you did not have a steady place to sleep or slept in a penitentiary (including now)? No 12/28/2022 Comments Unknown Sex and Gender Information Value Date Recorded Sex Assigned at Not on file Legal Sex Female 7:30 PM EDT Gender Identity Not on file Sexual Orientation Not on file COVID-19 Exposure Response Date Recorded In the last 10 days, have yo u been in contact with someone who was confirmed or suspected to have Coronavirus/COVID-19? No / Unsure 03/12/2023 9:33 AM EDT documented as of this encounter Plan of Treatment Not on file documented as of this encounter Procedures Procedure Name Priority Date/Time Associated Diagnosis Comments MM TOMOSYNTHESIS SCREENING BI 03/30/2023 2:57 PM EDT documented in this encounter Results * MM TOMOSYNTHESIS SCREENING BI (03/30/2023 2:57 PM EDT) Anatomical Region Laterality Modality Other 03/30/2023 2:57 PM EDT Narrative 03/30/2023 2:57 [place] [address] Mammography Report Signed Patient: ROGER DELGADO MR#: [id number] : 1965 Acct:[id number] Age/Sex: 57 / F ADM Date: 03/30/23 Loc: LAB Attending Dr: GEORGIA SAWANT Ordering Physician: GEORGIA SAWANT Results: Date of Service: 03/30/23 Follow Up: Procedure(s): MM tomosynthesis screening BI Accession Number(s): [id number] cc: GEORGIA SAWANT ; DIEGO BARBER Patient: ROGER DELGADO. Exam Date: 03/30/2023 : 1965 Gender:F Ordering : DR GEORGIA SAWANT PA Admission #: [id number] Family : DR. DIEGO BARBER . Order #: [id number] CLICK HERE TO VIEW EXAM RADIOLOGY REPORT PROCEDURE: MM TOMOSYNTHESIS SCREENING BI COMPARISON: MG MAMM SCREEN 3D ANA CAD, 10/03/2020. MG MAMM SCREEN 3D ANA CAD, 04/07/2022. INDICATIONS: Screening Calculator Name NCI Breast Cancer Risk Assessment Tool 5 Year Breast Cancer Risk 1.00% Lifetime Breast Cancer Risk 6.00% Personal Breast Cancer No Personal Ovarian Cancer No Treatments None Family Cancers Grandmother-maternal with breast cancer at age 80; Grandfather-paternal with colon cancer at age 80; Aunt-paternal with breast cancer at age 65. LOCATION: [facility] BREAST COMPOSITION: Scattered areas fibroglandular density. [...] PALPABLE LUMP SHOULD BE BIOPSIED. Dictated by: Benedict Mauricio MD on 03/30/2023 at 14:50 Approved by: Benedict Mauricio MD on 03/30/2023 at 14:57 Dictated By: Benedict Mauricio M.D. Signed By: 03/30/23 1458 DD/ 1457 TD/TT: Slip Cover Operator: Procedure Note Radiology, Radiologist, - 04/09/2023 [place] [address] Mammography Report Signed Patient: ROGER DELGADO MMR#: [id number] : 1965Acct:[id number] Age/Sex: 57 / FADM Date: 03/30/23 Loc: LAB Attending Dr: GEORGIA SAWANT Ordering Physician: GEORGIA SAWANT MResults: Date of Service: 03/30/23Follow Up: Procedure(s): MM tomosynthesis screening BI Accession Number(s): [id number] cc: GEORGIA SAWANT ; DIEGO BARBER Patient: ROGER DELGADO Exam Date: 03/30/2023 : 1965 Gender:F Ordering : DR GEORGIA JO Admission #: [id number] Family : DR. DIEGO BARBER . Order #: [id number] CLICK HERE TO VIEW EXAM RADIOLOGY REPORT PROCEDURE: MM TOMOSYNTHESIS SCREENING BI COMPARISON: MG MAMM SCREEN 3D ANA CAD, 10/03/2020. MG MAMM SCREEN 3DBIL CAD, 04/07/2022. INDICATIONS: Screening Calculator Name NCI Breast Cancer Risk Assessment Tool 5 Year Breast Cancer Risk 1.00% Lifetime Breast Cancer Risk 6.00% Personal Breast Cancer No Personal Ovarian Cancer No Treatments None Family Cancers Grandmother-maternal with breast cancer at age 80; Grandfather-paternal with colon cancer at age 80; Aunt-paternal withbreast cancer at age 65. LOCATION: [facility] BREAST COMPOSITION: Scattered areas fibroglandular density. FINDINGS: DIAGNOSTIC CATEGORY 1--NEGATIVE. NO CHANGE FROM COMPARISON ASSESSMENT. Scattered benign-appearing calcifications are present. Scattered benign-appearing lymph nodes are present. RIGHT BREAST: No significant suspicious finding. LEFT BREAST: No significant suspicious finding. RECOMMENDATIONS: ROUTINE MAMMOGRAM AND CLINICAL EVALUATION IN 12 MONTHS. PLEASE NOTE: A NORMAL MAMMOGRAM DOES NOT EXCLUDE THE POSSIBILITY OFBREAST CANCER. A CLINICALLY SUSPICIOUS PALPABLE LUMP SHOULD BE BIOPSIED. Dictated by: Benedict Mauricio MD on 03/30/2023 at 14:50 Approved by: Benedict Mauricio MD on 03/30/2023 at 14:57 Dictated By: Benedict Mauricio M.D. Signed By:03/30/23 1458 DD/ 1457 TD/TT: Slip Cover Operator: [place] JO [facility] Final Result documented in this encounter Visit Diagnoses Not on filedocumented in this encounter Care Teams Buckler And Lacer Relationship Specialty Start Date End Date Ne Aguirre MD [address] [facility] [address] [place] [address] PCP - General Family Medicine 12/28/22 Oleksandr Elliott MD [address] [facility] [address] [place] [address] PCP - Khanh Skinner 02/16/2307/18 documented as of this encounter
--- OUTSIDE RECORDS SUMMARY | 2025-02-01 14:00 | XMS_ITS | Clinical Summary ---
Author Organization [facility] Address [address] [place] [address] Phone Care Team Providers Care Shoes Salesperson Name Role Phone Unavailable Primary Care Provider Unavailabl e Social History Tobacco Use Types Packs/Day Years Used Date Smoking Tobacco: Never Assessed Comments Unknown Sex and Gender Information Value Date Recorded Sex Assigned at Not on file Legal Sex Female 1:01 PM EST Gender Identity Not on file Sexual Orientation Not on file Plan of Treatment Not on file
--- OUTSIDE RECORDS SUMMARY | 2025-02-01 14:00 | XMS_ITS | Encounter Summary ---
Author Organization [facility] Address [address] [place] [address] Care Team Providers Care Pipe Fitter Ammonia Name Role Phone Ne Aguirre MD Primary Care Provider [phone] Oleksandr Elliott MD Unavailable [phone] Encounter Details Date Type Department Care Team (Late st Contact Info) Description 11/23/2023 Clinisync Result Encounter [facility] External Department Unsolicited Dionne Aguirre, DO [address] [place] [address] Social History Tobacco Use Types Packs/Day Years [...] 12/28/2022 How often do you attend chur or mu-ism services? More than 4 times per year 12/28/2022 Do you belong to any clubs o r organizations such as pentecostal groups, unions, fraternal or athletic groups, or [...] and heating? Not hard at all 12/28/2022 [facility] - Occupational Stress [...] place to sleep or slept in a group home (including now)? No 12/28/2022 Comments Unknown Sex and Gender Information Value Date Recorded Sex Assigned at Not on file Legal Sex Female 7:30 PM EDT Gender Identity Not on file Sexual Orientation Not on file documented as of this encounter Plan of Treatment Not on file documented as of this encounter Procedures Procedure Name Priority Date/Time Associated Diagnosis Comments ECG 12-LEAD 11/23/2023 9:27 AM EDT documented in this encounter Results * ECG 12-LEAD (11/23/2023 9:27 AM EDT) Anatomical Region Laterality Modality Other 11/23/2023 9:27 AM EDT Narrative 11/24/2023 11:03 [place] [address] Electrocardiograph Report Signed Patient: ROGER DELGADO MR#: [id number] : 1965 Acct:[id number] Age/Sex: 58 / F ADM Date: 11/23/23 Loc: PST Attending Dr: Dionne Aguirre D.O. Ordering Physician: Dionne Aguirre D.O. Date of Service: 11/23/23 Procedure(s): ECG 12 lead Accession Number(s): [id number] cc: [facility] Test Date: 2023-11-23 Pat Name: ROGER DELGADO Department: Room: - Gender: Female Securities Trader: : 1965 Requested By: DIONNE AGUIRRE Order Number: [id number] Reading MD: KRIS HERNANDEZ Measurements Intervals Thayer Rate: 81 P: 57 VT: 168 QRS: 21 QRSD: 82 T: 43 QT: 353 QTc: 410 Interpretive Statements SINUS RHYTHM POSSIBLE LEFT ATRIAL ENLARGEMENT [-0.1mV P WAVE IN V1/V2] Compared to ECG 05/06/2018 09:08:44 No significant changes Electronically Signed On 11-24-2023 23:03:10 EDT by KRIS HERNANDEZ Dictated By: Kris Hernandez D.O. Signed By: 11/24/232302 DD/ 6 TD/TT: Manager Spring: Procedure Note Radiology, Radiologist, - 11/24/2023 [place] [address] Electrocardiograph Report Signed Patient: ROGER DELGADO MMR#: [id number] : 1965Acct:[id number] Age/Sex: 58 / FADM Date: 11/23/23 Loc: PST Attending Dr: Dionne Aguirre D.O. Ordering Physician: Dionne Aguirre D.O. Date of Service: 11/23/23 Procedure(s): ECG 12 lead Accession Number(s): [id number] cc: [facility] Test Date: 2023-11-23 Pat Name: ROGER DELGADO Department: Room: - Gender: Female Securities Trader: : 1965 Requested By: DIONNE AGUIRRE Order Number: [id number] Reading MD: KRIS HERNANDEZ Measurements Intervals Thayer Rate: 81 P: 57 VT: 168 QRS: 21 QRSD: 82 T: 43 QT: 353 QTc: 410 Interpretive Statements SINUS RHYTHM POSSIBLE LEFT ATRIAL ENLARGEMENT [-0.1mV P WAVE IN V1/V2] Compared to ECG 05/06/2018 09:08:44 No significant changes Electronically Signed On 11-24-2023 23:03:10 EDT by KRIS HERNANDEZ Dictated By: Kris Hernandez D.O. Signed By:11/24/232302 DD/ 0927 TD/TT: Manager Spring: us Dionne Timothy DO [facility] Final Result documented in this encounter Visit Diagnoses Not on filedocumented in this encounter Care Teams Pipe Fitter Ammonia Relationship Specialty Start Date End Date Ne Aguirre MD [address] [facility] [address] [place] [address] PCP - General Family Medicine 12/28/22 Oleksandr Elliott MD [address] [facility] [address] [place] [address] PCP - Khanh Skinner 02/16/2307/18 documented as of this encounter
--- OUTSIDE RECORDS SUMMARY | 2025-02-01 14:00 | XMS_ITS | Clinical Summary ---
Author Organization [facility] Healthcare Address [address] [place] [address] Care Team Providers Care Auto Air Conditioning Mechanic Name Role Phone Ne Aguirre MD Primary Care Provider [phone] Allergies Active Allergy Reactions Criticality Noted Date Comments Codeine GI intolerance 12/29/2022 Other Reaction(s): Gastrointestinal upset Metronidazole Itching 12/30/2022 Morphine GI intolerance 12/29/2022 Other Reaction(s): Gastrointestinal upset Medications rosuvastatin (Crestor) 5 MG tabletIndications:H yperlipidemia, mixed Take 1 tablet (5 mg) by mouth at bedtime. 100 tablet 3 3 Active levothyroxine (Synthroid, Levoxyl) 112 MCG tabletIndications:A cquired hypothyroidism TAKE 1 TABLET BY MOUTH ONCE EVERYDAY IN THE MORNING BEFORE MEAL 90 tablet 2 4 Active Active Problems Problem Noted Date Diagnosed Date History of carpal tunnel release of both wrists 03/25/2023 Persistent cough 03/25/2023 History of colon resection 03/25/2023 Hyperlipidemia, mixed 12/30/2022 Acquired hypothyroidism 12/30/2022 Adhesive capsulitis of left shoulder 12/29/2022 Snapping thumb syndrome 12/29/2022 Other chronic pain 12/29/2022 Pain in left shoulder 12/29/2022 Right wrist pain 12/29/2022 Resolved Problems Problem Noted Date Diagnosed Date Resolved Date Carpal tunnel syndrome 12/29/202203/25 Immunizations Immunization Administration Dates Next Due Influenza, seasonal, intradermal, preservative f ree 05/02/2016,05/20/2015 Family History Medical History Relation Name Comments Diabetes Father Heart disease Father Hypertension Father Relation Name Status Comments Father Alive Mother Alive Social History Tobacco Use Types Packs/Day Years [...] How often do you attend chur or judaism services? More than 4 times per year 12/28/2022 Do you belong to any clubs o r organizations such as rastafari groups, unions, fraternal or athletic groups, or [...] and heating? Not hard at all 12/28/2022 [facility] Occupat ional Health - Occupational Stress [...] place to sleep or slept in a chcf (including now)? No 12/28/2022 Comments Unknown Sex and Gender Information Value Date Recorded Sex Assigned at Not on file Legal Sex Female 7:30 PM EDT Gender Identity Not on file Sexual Orientation Not on file Last Filed Vital Signs Vital Sign Reading Time Taken Comments Blood Pressure 112/68 11/04/2023 8:43 AM EDT Pulse 87 03/25/2023 11:04 AM EDT Temperature - - Respiratory Rate 16 03/25/2023 11:04 AM EDT Oxygen Saturation 98% 03/25/2023 11:04 AM EDT Inhaled Oxygen Concentration - - Weight 63 kg (139 lb) 11/04/2023 8:43 AM EDT Height 157.5 cm (5' 2 ) 03/25/2023 11:04 AM EDT Body Mass Index 25.42 03/25/2023 11:04 AM EDT Plan of Treatment Health Maintenance Due Date Last Done Comments Pap Smear 1985 Cervical Cancer Screening 1994 HPV/Cotest 1994 Influenza Vaccine (#1) 2025 05/02/2016, 2014 Mammogram 05/24/2025 05/24/2024, 03/19, 03/30/2023, Additional history exists Colonoscopy Discontinued 06/02/2023, 12/30/2007 Colorectal Cancer Screening Discontinued CT Colonography Discontinued FIT-DNA Discontinued FIT Discontinued FOBT Discontinued Sigmoidoscopy Discontinued Procedures Procedure Name Priority Date/Time Associated Diagnosis Comments MM TOMOSYNTHESIS SCREENING BI 05/24/2024 10:30 AM EST from Last 3 Months or Most Recently Relevant to Health Maintenance Results * MM TOMOSYNTHESIS SCREENING BI (05/24/2024 10:30 AM EST) Anatomical Region Laterality Modality Other 05/24/2024 10:3 0 AM EST Narrative 05/24/2024 10:31 [place] [address] Mammography Report Signed Patient: ROGER DELGADO MR#: [id number] : 1965 Acct:[id number] Age/Sex: 58 / F ADM Date: 05/24/24 Loc: MAMMO Attending Dr: Michael Aguirre D.O. Ordering Physician: Michael Aguirre D.O. Results: Date of Service: 05/24/24 Follow Up: Procedure(s): MM tomosynthesis screening BI Accession Number(s): [id number] cc: Michael Aguirre D.O.; Abelino Howard M.D. Patient Name: ROGER DELGADO MR#: [id number] : 1965 Exam Date: 05/24/2024 Ordering Doctor: DR Michael Aguirre . RADIOLOGY REPORT PROCEDURE: MM TOMOSYNTHESIS SCREENING BI COMPARISON: MM TOMOSYNTHESIS SCREENING BI, 03/30/2023. INDICATIONS: Screening for malignant neoplasm Calculator Name NCI Breast Cancer Risk Assessment Tool 5 Year Breast Cancer Risk 1.10% Lifetime Breast Cancer Risk 5.90% Personal Breast Cancer No Personal Ovarian Cancer No Treatments None Family Cancers Grandmother-maternal with breast cancer at age 80; Grandfather-paternal with colon cancer at age 80; Aunt-paternal with breast cancer at age 65. LOCATION: The [facility] BREAST COMPOSITION: There are scattered areas of fibroglandular density. FINDINGS: DIAGNOSTIC CATEGORY 1--NEGATIVE. NO [...] BIOPSIED. Dictated by: Benedict Mauricio MD on 05/24/2024 at 10:25 Approved by: Benedict Mauricio MD on 05/24/2024 at 10:29 Dictated By: Benedict Mauricio M.D. Signed By: 05/24/24 1031 DD/ 1030 TD/TT: Stitchdown Thread Laster: Procedure Note Radiology, Radiologist, MD - 05/24/2024 [place] [address] Mammography Report Signed Patient: ROGER DELGADO MMR#: [id number] : 1965Acct:[id number] Age/Sex: 58 / FADM Date: 05/24/24 Loc: MAMMO Attending Dr: Michale Aguirre D.O. Ordering Physician: Michael Aguirre D.O.Results: Date of Service: 05/24/24Follow Up: Procedure(s): MM tomosynthesis screening BI Accession Number(s): [id number] cc: Michael Aguirre D.O.; Abelino Howard M.D. Patient Name: ROGER DELGADO MR#: [id number] : 1965 Exam Date: 05/24/2024 Ordering Doctor: DR Michael Aguirre . RADIOLOGY REPORT PROCEDURE: MM TOMOSYNTHESIS SCREENING BI COMPARISON: MM TOMOSYNTHESIS SCREENING BI, 03/30/2023. INDICATIONS: Screening for malignant neoplasm Calculator Name NCI Breast Cancer Risk Assessment Tool 5 Year Breast Cancer Risk 1.10% Lifetime Breast Cancer Risk 5.90% Personal Breast Cancer No Personal Ovarian Cancer No Treatments None Family Cancers Grandmother-maternal with breast cancer at age 80; Grandfather-paternal with colon cancer at age 80; Aunt-paternal withbreast cancer at age 65. LOCATION: The [facility] BREAST COMPOSITION: There are scattered areas of fibroglandulardensity. FINDINGS: DIAGNOSTIC CATEGORY 1--NEGATIVE. NO CHANGE FROM [...] BIOPSIED. Dictated by: Benedict Mauricio MD on 05/24/2024 at 10:25 Approved by: Benedict Mauricio MD on 05/24/2024 at 10:29 Dictated By: Benedict Mauricio M.D. Signed By:05/24/24 1031 DD/ 1030 TD/TT: Stitchdown Thread Laster: Michael Aguirre DO [facility] Final Result from Last 3 Months or Most Recently Relevant to Health Maintenance Insurance BS Care Teams Auto Air Conditioning Mechanic Relationship Specialty Start Date End Date Ne Aguirre MD [address] [place] [address] PCP - General Family Medicine 12/28/22
--- OUTSIDE RECORDS SUMMARY | 2025-02-01 14:00 | XMS_ITS | Encounter Summary ---
Author Organization [facility] Address [address] [place] [address] Care Team Providers Care Geothermal Operations Manager Name Role Phone Ne Aguirre MD Primary Care Provider [phone] Oleksandr Elliott MD Unavailable [phone] Encounter Details Date Type Department Care Team (Late st Contact Info) Description 03/31/2023 Abstract [facility] [address] [facility] 110 [place] [id number] Ne Aguirre MD [address] [facility] [address] [place], [place] [id number] Social History Tobacco Use Types Packs/Day Years [...] often do you attend chur ch or jain services? More than 4 times per year 12/28/2022 Do you belong to any clubs o r organizations such as restoration groups, unions, fraternal or athletic groups, or [...] and heating? Not hard at all 12/28/2022 [facility] of Occupat ional Health - Occupational [...] place to sleep or slept in a half-way (including now)? No 12/28/2022 Comments Unknown Sex [...] on file documented as of this encounter Visit Diagnoses Not on filedocumented in this encounter Care Teams Geothermal Operations Manager Relationship Specialty Start Date End Date Ne Aguirre MD [address] [place] [address] [place] [address] PCP - General Family Medicine 12/28/22 Oleksandr Elliott MD [address] [place] [address] [place] [address] PCP - Khanh Skinner 02/16/2307/18 documented as of this encounter
--- OUTSIDE RECORDS SUMMARY | 2025-02-01 14:00 | XMS_ITS | Encounter Summary ---
Author Organization [facility] Address [address] [place] [address] Care Team Providers Care Blood Bank Specialist Name Role Phone Ne Aguirre MD Primary Care Provider [phone] Oleksandr Elliott MD Unavailable [phone] Encounter Details Date Type Department Care Team (Late st Contact Info) Description 05/24/2024 Clinisync Result Encounter [facility] External Department Unsolicited Michael Aguirre, DO [address] [place] [address] Social History Tobacco Use Types Packs/Day Years [...] How often do you attend chur or uatsdin services? More than 4 times per year 12/28/2022 Do you belong to any clubs o r organizations such as jewish groups, unions, fraternal or athletic groups, or [...] and heating? Not hard at all 12/28/2022 [facility] of Occupat ional Health - Occupational Stress [...] place to sleep or slept in a retirement (including now)? No 12/28/2022 Comments Unknown Sex [...] TOMOSYNTHESIS SCREENING BI 05/24/2024 10:30 AM EST documented in this encounter Results * MM TOMOSYNTHESIS SCREENING BI (05/24/2024 10:30 AM EST) Anatomical Region Laterality Modality Other 05/24/2024 10:3 0 AM EST Narrative 05/24/2024 10:31 [place] [address] Mammography Report Signed Patient: ROGER DELGADO MR#: [id number] : 1965 Acct:[id number] Age/Sex: 58 / F ADM Date: 05/24/24 Loc: MAMMO Attending Dr: Michael Aguirre D.O. Ordering Physician: Michael Aguirre D.O. Results: Date of Service: 05/24/24 Follow Up: Procedure(s): MM tomosynthesis screening BI Accession Number(s): [id number] cc: Michael Aguirre D.O.; Abelino Howard M.D. Patient Name: ROGER DELGADO MR#: [id number] : 1965 Exam Date: 05/24/2024 Ordering Doctor: [...] breast cancer at age 64. LOCATION: The [facility] BREAST COMPOSITION: There are scattered areas of [...] Signed By: 05/24/24 1031 DD/ 1030 TD/TT: Import/Export Clerk: Procedure Note Radiology, Radiologist, MD - 05/24/2024 [place] [address] Mammography Report Signed Patient: ROGER DELGADO MMR#: [id number] : 1965Acct:[id number] Age/Sex: 58 / FADM Date: 05/24/24 Loc: MAMMO Attending Dr: Michael Aguirre D.O. Ordering Physician: Michael Aguirre D.O.Results: Date of Service: 05/24/24Follow Up: Procedure(s): MM tomosynthesis screening BI Accession Number(s): [id number] cc: Michael Aguirre D.O.; Abelino Howard M.D. Patient Name: ROGER DELGADO MR#: [id number] : 1965 Exam Date: 05/24/2024 Ordering Doctor: [...] withbreast cancer at age 64. LOCATION: The [facility] BREAST COMPOSITION: There are scattered areas of [...] M.D. Signed By:05/24/24 1031 DD/ 1030 TD/TT: Import/Export Clerk: Michael Aguirre DO [facility] Final Result documented in this encounter Visit Diagnoses Not on filedocumented in this encounter Care Teams Blood Bank Specialist Relationship Specialty Start Date End Date Ne Aguirre MD [address] [facility] 110 [place] [address] PCP - General Family Medicine 12/28/22 Oleksandr Elliott MD [address] [facility] 110 [place] [address] HAI - Khanh Commercial 02/16/2307/18 documented as of this encounter
--- OUTSIDE RECORDS SUMMARY | 2025-02-01 14:00 | XMS_ITS | Encounter Summary ---
Author Organization [facility] Address [address] [place] [address] Care Team Providers Care Manager Configuration Name Role Phone Ne Aguirre MD Primary Care Provider [phone] Oleksandr Elliott MD Unavailable [phone] Encounter Details Date Type Department Care Team (Late st Contact Info) Description 12/31/2022 Orders Only [facility] [address] [place] [address] [place] [phone] Elizabeth Sawant, PA [address] [place] [address] [place], [place] [address] Social History Tobacco Use Types Packs/Day Years Used Date Smoking Tobacco: Never Humiliation, Afraid, Rape, and Kick questionnair e [...] often do you attend chur ch or pentecostalism services? More than 4 times per year 12/28/2022 Do you belong to any clubs o r organizations such as buddhism groups, unions, fraternal or athletic groups, or [...] and heating? Not hard at all 12/28/2022 [facility] Occupat ional Health - Occupational [...] place to sleep or slept in a intermediate (including now)? No 12/28/2022 Comments Unknown Sex [...] suspected to have Coronavirus/COVID-19? No / Unsure 12/28/2022 2:32 PM EDT documented as of this encounter Plan of Treatment Not on file documented as of this encounter Procedures Procedure Name Priority Date/Time Associated Diagnosis Comments SCANNED LABS Routine 04/07/2022 9:40 AM EDT documented in this encounter Results * SCANNED LABS (04/07/2022 9:40 AM EDT) Elizabeth Sawant PA LAB CHG PERFORMABLES Final Res ult documented in this encounter Visit Diagnoses Not on filedocumented in this encounter Care Teams Manager Configuration Relationship Specialty Start Date End Date Ne Aguirre MD [address] [place] [address] [place] [address] PCP - General Family Medicine 12/28/22 Oleksandr Elliott MD [address] [place] [address] [place] [address] PCP - [employer] 02/16/2307/18 documented as of this encounter
--- OUTSIDE RECORDS SUMMARY | 2025-02-01 14:00 | XMS_ITS | Encounter Summary ---
Author Organization [facility] Address [address] [place] [address] Care Team Providers Care Fire Department Marine Engineer Name Role Phone Ne Aguirre MD Primary Care Provider [phone] Oleksandr Elliott MD Unavailable [phone] Encounter Details Date Type Department Care Team (Late st Contact Info) Description 12/28/2022 Abstract [facility] [address] [facility] 110 [place] [phone] Ne Aguirre MD [address] [facility] 110 [place], [place] [phone] Social History Tobacco Use Types Packs/Day Years Used Date Smoking Tobacco: Never Assessed Humiliation, Afraid, Rape, and Kick questionnair e [...] often do you attend chur ch or tenriism services? More than 4 times per year 12/28/2022 Do you belong to any clubs o r organizations such as sabianism groups, unions, fraternal or athletic groups, or [...] and heating? Not hard at all 12/28/2022 [facility] of Occupat ional Health - Occupational [...] place to sleep or slept in a jail (including now)? No 12/28/2022 Comments Unknown Sex [...] PM EDT documented as of this encounter Functional Status * Audit-C Score Answer Date of Assessment Author 5 12/28/2022 2:31 PM EDT Mychart, Generic * Q1: How often do you have a drink containing alcohol? Answer Date of Assessment Author 2-3 times a week 12/28/2022 2:31 PM EDT Mychart, Generic * Q2: How many drinks containing alcohol do you have on a typical day when you are drinking? Answer Date of Assessment Author 3 or 4 12/28/2022 2:31 PM EDT Mychart, Generic * Q3: How often do you have six or more drinks on one occasion? Answer Date of Assessment Author Less than monthly 12/28/2022 2:31 PM EDT Mychart , Generic documented as of this encounter Plan of Treatment Not on file documented as of this encounter Visit Diagnoses Not on filedocumented in this encounter Care Teams Fire Department Marine Engineer Relationship Specialty Start Date End Date Ne Aguirre MD [address] [place] [address] 110 [place] [address] PCP - General Family Medicine 12/28/22 Oleksandr Elliott MD [address] [facility] 110 [place] [address] PCP - Khanh Skinner 02/16/2307/18 documented as of this encounter
--- OUTSIDE RECORDS SUMMARY | 2025-02-01 14:00 | XMS_ITS | Encounter Summary ---
Author Organization [facility] Address [address] [place] [address] Care Team Providers Care Physician Practice Administrator Name Role Phone Ne Aguirre MD Primary Care Provider [phone] Oleksandr Elliott MD Unavailable [phone] Encounter Details Date Type Department Care Team (Late st Contact Info) Description 11/08/2023 Clinisync Result Encounter [facility] External Department Unsolicited Dionne Aguirre, DO [address] [facility] [place] [place] [address] Social History Tobacco Use Types Packs/Day Years [...] How often do you attend chur or worship services? More than 4 times per year 12/28/2022 Do you belong to any clubs o r organizations such as caodaism groups, unions, fraternal or athletic groups, or [...] and heating? Not hard at all 12/28/2022 [facility] of Occupat ional Health - Occupational Stress [...] place to sleep or slept in a skilled nursing (including now)? No 12/28/2022 Comments Unknown Sex and Gender Information Value Date Recorded Sex Assigned at Not on file Legal Sex Female 7:30 PM EDT Gender Identity Not on file Sexual Orientation Not on file documented as of this encounter Plan of Treatment Not on file documented as of this encounter Procedures Procedure Name Priority Date/Time Associated Diagnosis Comments US PELVIS TRANSVAGINAL 11/08/2023 9:32 AM EDT documented in this encounter Results * US PELVIS TRANSVAGINAL (11/08/2023 9:32 AM EDT) Anatomical Region Laterality Modality Other 11/08/2023 9:32 AM EDT Narrative 11/08/2023 9:34 AM EDT The [address] [address] Ultrasound Report Signed Patient: ROGER DELGADO MR#: [id number] : 1965 Acct:[id number] Age/Sex: 58 / F ADM Date: 11/08/23 Loc: US Attending Dr: Dionne Aguirre D.O. Ordering Physician: Dionne Aguirre D.O. Date of Service: 11/08/23 Procedure(s): US pelvis transvaginal Accession Number(s): [id number] cc: Dionne Aguirre D.O.; Abelino Howard M.D. [place] [address] Patient Name: ROGER DELGADO MRN: [id number] date: 1965 Sex: F Assigned Patient Location: US Current Patient Location: US Accession/Order Number: [id number] Exam Date: 11/08/2023 07:00 Report Date: 11/08/2023 09:32 At the request of: DIONNE AGUIRRE Procedure: US pelvis transvaginal EXAMINATION: US pelvis transvaginal HISTORY: Postmenopausal Bleeding N95.0 COMPARISON: No relevant comparison available. FINDINGS: Transvaginal images The uterus is normal in size, contour and myometrial echotexture measuring 5.5 x 3.8 x 2.4 cm. No focal myometrial mass. The endometrium measures 2.3 mm, normal. The right ovary is normal measuring 1.5 x 1.9 x 1.1 cm. Normal color and Doppler flow The left ovary is normal measuring 1.0 x 1.0 x 1.0 cm. Normal color and Doppler flow No free fluid US/US pelvis transvaginal IMPRESSION: Normal exam Electronically authenticated by: TACO FRANKLIN Date: 11/08/2023 09:32 Dictated By: Taco Franklin M.D. Signed By: 11/08/2334 DD/ 1 TD/TT: Brusher Hand: Procedure Note Radiology, Radiologist, - 11/08/2023 [place] [address] Ultrasound Report Signed Patient: ROGER DELGADO MMR#: [id number] : 1965Acct:[id number] Age/Sex: 58 / FADM Date: 11/08/23 Loc: US Attending Dr: Dionne Aguirre D.O. Ordering Physician: Dionne Aguirre D.O. Date of Service: 11/08/23 Procedure(s): US pelvis transvaginal Accession Number(s): [id number] cc: Dionne Aguirre D.O.; Abelino Howard M.D. The [place] [address] Patient Name: ROGER DELGADO MRN: [id number] date: 1965 Sex: F Assigned Patient Location: Current Patient Location: US Accession/Order Number: [id number] Exam Date: 11/08/2023 07:00 Report Date: 11/08/2023 09:32 At the request of: DIONNE AGUIRRE Procedure: US pelvis transvaginal EXAMINATION: US pelvis transvaginal HISTORY: Postmenopausal Bleeding N95.0 COMPARISON: No relevant comparison available. FINDINGS: Transvaginal images The uterus is normal in size, contour and myometrial echotexture measuring5.5 x 3.8 x 2.4 cm. No focal myometrial mass. The endometrium measures 2.3 mm, normal. The right ovary is normal measuring 1.5 x 1.9 x 1.1 cm. Normal color and Doppler flow The left ovary is normal measuring 1.0 x 1.0 x 1.0 cm. Normal color and Doppler flow No free fluid US/US pelvis transvaginal IMPRESSION: Normal exam Electronically authenticated by: TACO FRANKLIN Date: 11/08/2023 09:32 Dictated By: Taco Franklin M.D. Signed By:11/08/2334 DD/ TD/TT: Brusher Hand: us Dionne Aguirre DO [facility] Final Result documented in this encounter Visit Diagnoses Not on filedocumented in this encounter Care Teams Physician Practice Administrator Relationship Specialty Start Date End Date Ne Aguirre MD [address] [facility] 110 [place] [address] PCP - General Family Medicine 12/28/22 Oleksandr Elliott MD [address] [facility] 110 [place] [address] PCP - Bensley Commercial 02/16/2307/18 documented as of this encounter
--- OUTSIDE RECORDS SUMMARY | 2025-02-01 14:00 | XMS_ITS | Encounter Summary ---
Author Organization [facility] Address [address] [place] [address] Care Team Providers Care Visual And Stock Associate Name Role Phone Ne Aguirre MD Primary Care Provider [phone] Oleksandr Elliott MD Unavailable [phone] Encounter Details Date Type Department Care Team (Late st Contact Info) Description 12/29/2022 Orders Only [facility] [address] [place] [address] [place] [phone] Eunice Castanon LPN [address] [place] [address] Social History Tobacco Use Types Packs/Day Years Used Date Smoking Tobacco: Never Tobacco Cessation:Counseling Given: Not Answered Humiliation, Afraid, Rape, and Kick questionnair e [...] How often do you attend chur or hoahaoism services? More than 4 times per year [...] and heating? Not hard at all 12/28/2022 [facility] of Occupat ional Health - Occupational Stress [...] place to sleep or slept in a nursing home (including now)? No 12/28/2022 Comments Unknown [...] on filedocumented in this encounter Care Teams Visual And Stock Associate Relationship Specialty Start Date End Date Ne Aguirre MD [address] [facility] 110 [place] [address] PCP - General Family Medicine 12/28/22 Oleksandr Elliott MD [address] [place] [address] [place] [address] PCP - Khanh Skinner 02/16/2307/18 documented as of this encounter
--- NOTE | 2025-02-01 14:01 | XR_ITS ---
The [place] [id number] Patient Name: ROGER MALDONADO MRN: [id number] date: 1965 Sex: F Assigned Patient Location: LAB Current Patient Location: LAB Accession/Order Number: [id number] Exam Date: 02/01/2025 20:03 Report Date: 02/01/2025 20:05 At the request of: EVON PIKE MD Procedure: XR foot RT 2V 3 views right foot plain film COMPARISON:02/22/2019 HISTORY: Right foot pain for 3 weeks ACUTE FINDINGS: None DEGENERATIVE CHANGE: Small inferior calcaneal spurring redemonstration of prominent accessory navicular. SOFT TISSUE FINDINGS: Unremarkable JOINT EFFUSION: None POSTOP CHANGES: None BONE MINERALIZATION: Adequate XR/XR foot RT 2V IMPRESSION: Inferior calcaneal spurring Impression dictated by: Param Currie M.D. 02/01/2025 8:05 PM Dictation Location: [place] [address] Electronically authenticated by: [id number] Y Date: 02/01/2025 20:05
== END 2025-02-01 13:57 | disposition home or self-care (01) ==
LOC: LAB 13:57
PROVIDERS: PCP Family Medicine; Visit Provider Family Medicine
DX: M79.671 Pain in right foot (principal); M77.31 Calcaneal spur, right foot
CPT/HCPCS: 73620

== ENCOUNTER 2025-06-21 08:32 | Outpatient (OUT) | payer BC, SELFPAY ==
--- OUTSIDE RECORDS SUMMARY | 2025-06-21 08:38 | XMS_ITS | Patient Health Record ---
Author Organization [facility] [place] Address [address] [place] [address] Care Team Providers Care Office Professionals Name Role Phone Zoran Pike Primary Care Provider Allergies Allergen (clinical drug ingredient) Drug/Non Drug Allergy documented on EMR Reaction Allergy Type Onset Date Status codeine Codeine nausea and vomiting Drug Allergy ActivemorphineMorphinenausea and vomitingDrug AllergyActive Results Component Value Reference Range Notes XR FOOT RT 2V Reviewed date:02/03/2025 03:15:17 PM Interpretation: Performing Lab: Notes/Report: Source Facility: [place] [address] XRay Report Signed Patient: ROGER DELGADO MR#: [id number] : 1965 Acct:[id number] Age/Sex: 59 / F ADM Date: 02/01/25 Loc: LAB Attending Dr: Evon Pike M.D. Ordering Physician: Evon Pike M.D. Date of Service: 02/01/25 Procedure(s): XR foot RT 2V Accession Number(s): [id number] cc: Evon Pike M.D. [place] [address] Patient Name: ROGER DELGADO MRN: [id number] date: 1965 Sex: F Assigned Patient Location: LAB Current Patient Location: LAB Accession/Order Number: [id number] Exam Date: 02/01/2025 20:03 Report Date: 02/01/2025 20:05 At the request of: EVON PIKE MD Procedure: XR foot RT 2V 3 views right foot plain film COMPARISON:02/22/2019 HISTORY: Right foot pain for 3 weeks ACUTE FINDINGS: None DEGENERATIVE CHANGE: Small inferior calcaneal spurring redemonstration of prominent accessory navicular. SOFT TISSUE FINDINGS: Unremarkable JOINT EFFUSION: None POSTOP CHANGES: None BONE MINERALIZATION: Adequate XR/XR foot RT 2V IMPRESSION: Inferior calcaneal spurring Impression dictated by: Param Currie M.D. 02/01/2025 8:05 PM [facility] Electron[facility] authenticated by: [id number] Y Date: 02/01/2025 20:05 Dictated By: Param Currie D.O. Signed By: 02/01/252006 DD/ 04 TD/TT: Physician Practice Manager: Reason For Referral No Information Medications Medication SIG (Take, Route, Frequency, Duration) Notes Start Date End Date Status Levothyroxine Sodium 112 MCG TAKE 1 TABL ET EVERYDAY IN THE MORNING BEFORE A MEAL ONCE A DAY; Duration: 90 ActiveRosuvastatin Calcium 5 MGTAKE 1 TABLET BY MOUTH EVERY DAY FOR 90 DAYS; Duration: 90ActiveDiclofenac Sodium 75 MG1 tablet as needed Orally Twice a day; Duration: 30 days5Active Social History Tobacco Use: Social History Observation Description Date Details (start date - stop date) Never Smoker NA - NA Tobacco Use/Smoking Question Answer Notes Patient is a nonsmoker Alcohol Screen (Audit-C) Question Answer Notes Did you have a drink containing alcohol in the p ast year? Yes How often did you have 6 or more drinks on one occasion in the past year?Monthly or less (1 point)How many drinks did you have on a typical day when you were drinking in the past year?1 or 2 drinks (0 point)How often did you have a drink containing alcohol in the past year?Weekly (3 points)Hzfylm9Pskdhjkjgpsjrg PositiveAUDIT-C (Standard) Question Answer Notes Did you have a drink containing alcohol in the p ast year? Yes How often did you have six or more drinks on one occasion in the past year?Never (0 point)How many drinks did you have on a typical day when you were drinking in the past year?1 or 2 drinks (0 point)How often did you have a drink containing alcohol in the past year?2 to 4 times a month (2 points)Twvqmm8Jzrpmuoogvfpki Negative Problems Problem Type SNOMED Code ICD Code Onset Dates Problem Status W/U Status Risk Notes Problem Calcaneal spur (20497729) Heel spur (M77. 30) ActiveconfirmedProblemPain in right foot (184712170069889)Right foot pain (M79.671)ActiveconfirmedProblemWell adult (055050223)Well adult (Z00.00)Active confirmedProblemAcute sinusitis (34622150)Acute sinus infection (J01.90)Active confirmed Vital Signs Blood pressure diastolic 68 mm Hg 02/01/2025 Hhaeqb59 in02/01/2025lood pressure srfekkcx334 mm Hg02/01/20258159Jwjcik155.8 lbs 02/01/2025BMI26.12 kg/m202/01/2025 Encounters Encounter Location Date Provider Diagnosis [facility] [address] [place] [address] 02/03/2025 Zoran Anita [facility] [place] [address] 05/21/2025[facility]Well[facility] examination [address] [address]/17/2025Doug HoyRight foot pain M79.671 Assessments Encounter Date Diagnosis (ICD Code) Assessment Notes Treatment Notes Treatment Clinical Notes Section Notes 02/01/2025 Right foot pain (ICD-10 - M79.67 1) 05/21/2025Wellness examination (ICD-10 - Z01.89) Plan Of Treatment Pending Test Test Name Order Date FECAL OCCULT BLOOD 05/21/2025 CBC AUTO DIFF 05/21/2025 GLYCOHEMOGLOBIN A1C 05/21/2025 LIPID PROFILE 05/21/2025 PROF 14(COMP METB) 05/21/2025 XR DEXA BONE DENSITY 06/02/2024 THYROID PANEL (T4/TSH/FREE T3) 11/03/202 5 Insurance Providers Payer Name Payer Address Payer Phone Subscriber Number Group Number Insured Name Patient Relationship to Insured Coverage Start Date Coverage End Date [employer] ACCESS PPO PLUS LOCAL PLAN [address] [phone] [id number] Roger Delgado Self - patient is the insured Medical (General) History Medical History History ICD Code Hypercholesteremia E78.00 Blindness in Right Eye Surgical History Surgery Date(Month/Year) C Section X 4 AppendectomyBowel ResectionShoulder Surgery- Left
--- OUTSIDE RECORDS SUMMARY | 2025-06-21 08:38 | XMS_ITS | Clinical Summary ---
Author Organization [facility] Address [address] [place] [address] Care Team Providers Care Price Checker Name Role Phone eN Aguirre MD Primary Care Provider [phone] Allergies Active AllergyReactionsCriticalityNoted DateCommentsCodeineGI intolerance 12/29/2022 Other Reaction(s): Gastrointestinal upset UoxzccloglnowSwzakgz67/14/2023MorphineGI hacxombuhap47/13/2023 Other Reaction(s): Gastrointestinal upset Medications MedicationSigDispense QuantityRefillsLast FilledStart DateEnd DateStatus rosuvastatin (Crestor) 5 MG tablet Indications:Hyperlipidemia, mixedTake 1 tablet (5 mg) by mouth at bedtime. 100 tablet ctive levothyroxine (Synthroid, Levoxyl) 112 MCG tablet Indications:Acquired hypothyroidismTAKE 1 TABLET BY MOUTH ONCE EVERYDAY IN THE MORNING BEFORE MEAL 90 tablet ctive Active Problems ProblemNoted DateDiagnosed DateHistory of carpal tunnel release of both wrists 03/25/2023ersistent cough03/25/2023History of colon lfesthyrn12/07/2023 Hyperlipidemia, mixed12/30/2022cquired akyifzsrinlard82/14/2023dhesive capsulitis of left ylqnavgh88/13/2023Snapping thumb rtdigyvt89/13/2023Other chronic pain12/29/2022ain in left xsnxbfys21/13/2023Right wrist pain12/29/2022 Resolved Problems ProblemNoted DateDiagnosed DateResolved DateCarpal tunnel xjzaihvj80/13/2023 03/25/2023 Immunizations ImmunizationAdministration DatesNext DueInfluenza, seasonal, intradermal, preservative free05/02/2016,05/20/2015 Family History Medical HistoryRelationNameCommentsDiabetesFatherHeart diseaseFatherHypertension FatherRelationNameStatusCommentsFatherAliveMotherAlive Social History Tobacco UseTypesPacks/DayYears UsedDateSmoking Tobacco: NeverSmokeless Tobacco: NeverAlcohol UseStandard Drinks/WeekCommentsYes2 (1 standard drink = 0.6 oz pure alcohol)Humiliation, Afraid, Rape, and Kick questionnaireAnswerDate Recorded Within the last year, have you been afraid of your partner or ex-partner?No 12/28/2022Within the last year, have you been humiliated or emotionally abused in other ways by your partner or ex-partner?No12/28/2022Within the last year, have you been kicked, hit, slapped, or otherwise physically hurt by your partner or ex-partner?No12/28/2022Within the last year, have you been raped or forced to have any kind of sexual activity by your partner or ex-partner?No12/28/2022 Social Connection and Isolation PanelAnswerDate RecordedIn a typical week, how many times do you talk on the phone with family, friends, or neighbors?More than three times a week12/28/2022How often do you get together with friends or relatives?Twice a week12/28/2022How often do you attend spiritism or congregation services?More than 4 times per year12/28/2022o you belong to any clubs or organizations such as spiritism groups, unions, fraternal or athletic groups, or school groups?No12/28/2022How often do you attend meetings of the clubs or organizations you belong to?Never12/28/2022re you , , , , never , or living with a partner?Xrrqslo0612/28/2022UDIT-C AnswerDate RecordedQ1: How often do you have a drink containing alcohol?2-3 times a week12/28/2022Q2: How many drinks containing alcohol do you have on a typical day when you are drinking?3 or 406Q3: How often do you have six or more drinks on one occasion?Less than txyeiun1112/28/2022Overall Financial Resource Strain (CARDIA)AnswerDate RecordedHow hard is it for you to pay for the very basics like food, housing, medical care, and heating?Not hard at all 12/28/2022[facility] [place] [facility] - Occupational Stress QuestionnaireAnswerDate RecordedDo you feel stress - tense, restless, nervous, or anxious, or unable to sleep at night because yourmind is troubled all the time - these days?Only a scmvyz5812/28/2022Exercise Vital SignAnswerDate Recorded On average, how many days per week do you engage in moderate to strenuous exercise (like a brisk walk)?3 days12/28/2022On average, how many minutes do you engage in exercise at this level?30 min12/28/2022Hunger Vital SignAnswerDate RecordedWithin the past 12 months, you worried that your food would run out before you got the money to buymore.Never true12/28/2022Within the past 12 months, the food you bought just didn't last and you didn't have money to get more.Never true12/28/2022RAPARE - TransportationAnswerDate RecordedIn the past 12 months, has lack of transportation kept you from medical appointments or from getting medications?No12/28/2022In the past 12 months, has lack of transportation kept you from meetings, work, or from getting things needed for daily living?No12/28/2022Housing Stability Vital SignAnswerDate RecordedIn the last 12 months, was there a time when you were not able to pay the mortgage or rent on time?No12/28/2022In the last 12 months, how many places have you lived?1 12/28/2022In the last 12 months, was there a time when you did not have a steady place to sleep or slept in ashelter (including now)?No12/28/2022Comments UnknownSex and Gender InformationValueDate RecordedSex Assigned at BirthNot on fileLegal OmkIrmpvk86/15/2023 7:30 PM EDTGender IdentityNot on fileSexual OrientationNot on file Last Filed Vital Signs Vital SignReadingTime TakenCommentsBlood Zjezjoiu774/6804 8:43 AM EDT Xfhmw8729 11:04 AM EDTTemperature--Respiratory Fmte570903/25/2023 11:04 AM EDTOxygen Yumjvzshut81%03/25/2023 11:04 AM EDTInhaled Oxygen Concentration-- Hegwqo70 kg (139 lb)11/04/2023 8:43 AM RJROpaiqy287.5 cm (5' 2 )03/25/2023 11:04 AM EDTBody Mass Index25.4209 11:04 AM EDT Plan of Treatment Health MaintenanceDue DateLast DoneCommentsPap Smear1985Cervical Cancer Uurfiovcp26/27/1994HPV/Osneyq0607/14/1994COVID-19 Vaccine ( season) /, 11/07/2020Influenza Vaccine (#1)/, 05/20/20159532Dzkufjoah71/06/202511/12/2023, 03/30/2023, 03/30/2023, Additional history ddxctrUfcgdwruqapQxbswueijawr81/15/2023, 12/30/2007Colorectal Cancer ScreeningDiscontinuedCT ColonographyDiscontinuedFIT-DNADiscontinuedFIT DiscontinuedFOBTDiscontinuedPneumococcal Vaccine: Pediatrics (0 to 5 Years) and At-Risk Patients (6 to 64 Years)Aged OutNo longer eligible based on patient's age to complete this topicSigmoidoscopyDiscontinued Procedures Procedure NamePriorityDate/TimeAssociated DiagnosisCommentsMM TOMOSYNTHESIS SCREENING BI05/24/2024 10:30 AM EST from Last 3 Months or Most Recently Relevant to Health Maintenance Results * MM TOMOSYNTHESIS SCREENING BI (05/24/2024 10:30 AM EST)Anatomical Region LateralityModalityOtherSpecimen (Source)Anatomical Location / Laterality Collection Method / VolumeCollection TimeReceived Time05/24/2024 10:30 AM EST Narrative 05/24/2024 10:31 AM EST [facility] ?[address] ? [place] [address] ? Mammography Report ? Signed ? Patient: JOEL,ROGER M ?MR#: [id number] ?? : 1965 ?Acct:[id number] ?? Age/Sex: 58 / F ?ADM Date: 05/24/24 ?? Loc: MAMMO ? Attending Dr: Michael Aguirre D.O. ? Ordering Physician: Michael Aguirre D.O. ?Results: ? Date of Service: 05/24/24 ?Follow Up: ? Procedure(s): MM tomosynthesis screening BI ?? Accession Number(s): [id number] ? cc: Michael Aguirre D.O.; Abelino Howard M.D. ? Patient Name: ? ROGER DELGADO ? MR#: [id number] ? : 1965 ? Exam Date: 05/24/2024 ?? Ordering Doctor: DR Michael Aguirre . ? RADIOLOGY REPORT ? PROCEDURE: ? MM TOMOSYNTHESIS SCREENING BI ? COMPARISON: ? MM TOMOSYNTHESIS SCREENING BI, 03/30/2023. ? INDICATIONS: ? Screening for malignant neoplasm ? Calculator Name ? NCI Breast Cancer Risk Assessment Tool ?? 5 Year Breast Cancer Risk ? 1.10% ?? Lifetime Breast Cancer Risk ? 5.90% ?? Personal Breast Cancer ?No ?? Personal Ovarian Cancer ? No ?? Treatments ? None ?? Family Cancers ? Grandmother-maternal with breast cancer at age 80; ?? Grandfather-paternal with colon cancer at age 80; Aunt-paternal with breast ?? cancer at age 65. ? LOCATION: ? [facility] ? BREAST COMPOSITION: ? There are scattered areas of fibroglandular density. ? FINDINGS: ? DIAGNOSTIC CATEGORY 1--NEGATIVE. NO CHANGE FROM COMPARISON ASSESSMENT. ? Scattered benign-appearing calcifications are present. ??Scattered ?? benign-appearing lymph nodes are present. ? RIGHT BREAST: ??No significant suspicious finding. ? LEFT BREAST: ??No significant suspicious finding. ? RECOMMENDATIONS: ? ROUTINE MAMMOGRAM AND CLINICAL EVALUATION IN 12 MONTHS. ? PLEASE NOTE: ??A NORMAL MAMMOGRAM DOES NOT EXCLUDE THE POSSIBILITY OF BREAST ?? CANCER. ??A CLINICALLY SUSPICIOUS PALPABLE LUMP SHOULD BE BIOPSIED. ? Dictated by: Benedict Mauricio MD on 05/24/2024 at 10:25 ? Approved by: Benedict Mauricio MD on 05/24/2024 at 10:29 ? Dictated By: ?Benedict Mauricio M.D. ? Signed By: ?05/24/24 1031 ? DD/ 1030 ? TD/TT: ? Value Engineer: Procedure Note Radiology, Radiologist, - 05/24/2024 [place] [address] Mammography Report Signed Patient: ROGER DELGADO MMR#: [id number] : 1965Acct:[id number] Age/Sex: 58 / FADM Date: 05/24/24 Loc: MAMMO Attending Dr: Michael Aguirre D.O. Ordering Physician: Michael Aguirre D.O.Results: Date of Service: 05/24/24Follow Up: Procedure(s): MM tomosynthesis screening BI Accession Number(s): [id number] cc: Michael Aguirre D.O.; Abelino Howard M.D. Patient Name: ROGER DELGADO MR#: [id number] : 1965 Exam Date: 05/24/2024 Ordering Doctor: [...] withbreast cancer at age 64. LOCATION: [facility] BREAST COMPOSITION: There are scattered areas of [...] M.D. Signed By:05/24/24 1031 DD/ 1030 TD/TT: Value Engineer: Authorizing ProviderResult TypeResult StatusCorejack Aguirre DOCLINISYNC IMAGINGFinal Result from Last 3 Months or Most Recently Relevant to Health Maintenance Insurance Care Teams Team MemberRelationshipSpecialtyStart DateEnd Date Ne Aguirre MD [address] [address] PCP - GeneralFamily Medicine12/28/22
--- OUTSIDE RECORDS SUMMARY | 2025-06-21 08:38 | XMS_ITS | Clinical Summary ---
Author Organization [facility] Address [address] [place] [address] Phone Care Team Providers Care Director Of Scout Work Name Role Phone Unavailable Primary Care Provider Unavailabl e Social History Tobacco UseTypesPacks/DayYears UsedDateSmoking Tobacco: Never Assessed CommentsUnknownSex and Gender InformationValueDate RecordedSex Assigned at Not on fileLegal JagTnptgy66/26/2022 1:01 PM ESTGender IdentityNot on fileSexual OrientationNot on file Plan of Treatment Not on file
--- OUTSIDE RECORDS SUMMARY | 2025-06-21 08:40 | XMS_ITS | CCD ---
Author Organization [facility] Care Team Providers Care Computer Analyst Name Role Phone DR DIONNE AGUIRRE Attending [...] CRICKET Attending Unavailable MARCELO, CRICKET Consulting Unavailable MARCELOCRICKET ACUÑA Admitting Unavailable TIMOTHY, DR TRUONG Admitting Unavailable TIMOTHY, DR TRUONG Attending Unavailable GONSALES, DR DELROY Mera Consulting Unavailable GONSALES, DR DELROY Mera Primary Care Unavailable CHANTILLY, DR TACO Melgar Consulting Unavailable TIMOTHY, DR TRUONG Consulting Unavailable Esperanza Ayon Unavailable NE GARCIA Primary Care Physician Oli NAILS Attending Unavailable ELIZABETH SHANNON Referring Unavailable Oli NAILS Attending Unavailable Dionne Aguirre Attending Unavailable Dionne Aguirre Admitting Unavailable Dionne Aguirre Attending Provider [phone] DIONNE AGUIRRE Attending Unavailable DIONNE AGUIRRE Attending Unavailable Ne Garcia MD Primary Care Provider [phone] Oleksandr Elliott MD Unavailable [phone] Allergies Allergy ClassificationReported Allergen(s)Allergy TypeDate of OnsetReaction(s) Facility (1 source)benzoin resinDrug Oypbxxl05-26-2135[facility] (2 sources)Codeine; Translations: [codeine]Drug AllergyThe [facility] (1 source)Morpholine AnaloguesDrug allergy (disorder)[facility] (4 sources)Codeine; Translations: [codeine]Drug Dhkegko92-58-2245 Gastrointestinal irritation (disorder), GI intoleranceGeneral Surgery Sigurd (5 sources)metroNIDAZOLE; Translations: [metronidazole]Drug Mypxvrn77-83-3900 Itching (finding), ItchingGeneral Surgery Sigurd (5 sources)Morphine; Translations: [morphine]Drug Kobtsrr27-53-2627 Gastrointestinal irritation (disorder), GI intoleranceGeneral Surgery Sigurd Medications Current Medications MedicationDrug Class(es)DatesSig (Normalized)Sig (Original)[id number] 200 actuat albuterol 0.09 mg/actuat metered dose inhaler (1 source)beta2-Adrenergic AgonistStart: 44-44-2214eoql 2 puff(s) by inhalation every four hours as neededAlbuterol Sulfate HFA 108 (90 Base) MCG/ACT 2 puffs as needed Inhalation every 4 hrs Sep, Activeatorvastatin (1 source)HMG-CoA Reductase InhibitorAtorvastatin Calcium Activeazithromycin 250 mg oral tablet (1 source)Macrolide AntimicrobialStart: 62-79-1654Jtreoxbemikh 250 MG 2 tablets on the first day, then 1 tablet daily for 4 days Orally Once a day for 5 day(s) Sep, Activelevothyroxine sodium 0.112 mg oral tablet (5 sources)l-ThyroxineStart: 16-35-1807vaha 1 tablet by mouth once daily before mealtimelevothyroxine (Synthroid, Levoxyl) 112 MCG tablet Indications: Acquired hypothyroidism TAKE 1 TABLET BY MOUTH ONCE EVERYDAY IN THE MORNING BEFORE MEAL 90 tablet 2 09/23/2023 ActiveStart: 23-38-0567yhle 1 tablet by mouth once daily levothyroxine 100 mcg (0.1 mg) Tab 100 mcg = 1 tab(s), Oral, Daily, Refills(s) 0 Start Date: 04/26/23 Status: OrderedLevothyroxine Sodium ActivepredniSONE 20 mg oral tablet (1 source)Start: 64-95-3711phgelaFJNA 20 MG 1 tablet twice a day for 3 days then 1 tablet daily for 3 days Orally take with food for 6 days Sep, Active rosuvastatin calcium 5 mg oral tablet (4 sources)HMG-CoA Reductase InhibitorStart: 98-38-6295mslo 1 tablet by mouth once daily at bedtimerosuvastatin 5 mg Tab 5 mg = 1 tab(s), Oral, Once a day (at bedtime), Refills(s) 0 Start Date: 04/26/23 Status: Ordered Problems Active Problems Problem ClassificationProblemDateDocumented DateEpisodic/ChronicAbdominal hernia (1 source)Hiatal vosiji23-49-0451AeaienicWnqybhibu and vision defects (1 source)Blind right xcg51-48-9219YskwdaiXkijezc obstructive pulmonary disease and bronchiectasis (1 source)Bronchitis, not specified as acute or chronicEpisodicDisorders of lipid metabolism (4 sources)Hypercholesterolemia; Translations: [Mixed hyperlipidemia]Onset: 537789-51-2994JnqxsbrBaxemfphqiinrm and diverticulitis (2 sources)Diverticular disease; Translations: [Diverticulitis]11-53-5148Gtkudwc Gastrointestinal hemorrhage (2 sources)Hemorrhage of rectum and anus; Translations: [Hemorrhage of anus and rectum]Onset: 48-58-4225YpegomtpKxgkc bone disease and musculoskeletal deformities (1 source)Other specified disorders of bone density and structure, other site; Translations: [OTH D/O BONE DEN STRUCT OTH SITE]Onset: 87-50-0424AigrscnmYhrbf nervous system disorders (3 sources)Chronic pain; Translations: [Other chronic pain]Onset: 12-29-2022 13-98-4773BqfnuopTjmrn nutritional; endocrine; and metabolic disorders (1 source)Overweight in adulthood with body mass index of 25 or more but less than 4375-62-0146BzshcytjDwnzo screening for suspected conditions (not mental disorders or infectious disease) (5 sources)Encounter for screening mammogram for malignant neoplasm of breast; Translations: [Encounter for screening for malignant neoplasm of cervix]Onset: 05-09-2987GplguggmGhvlrbgyl; thrombophlebitis and thromboembolism (1 source)H/O: Deep vein cxskkmufwy91-08-4835UthvbvitKykrnefq codes; unclassified (4 sources)Asymptomatic menopausal state; Translations: [ASYMPTOMATIC MENOPAUSAL STATE]Onset: 02-58-8289KbltaxjuCqmbhqxq codes; unclassified (1 source)Family history of malignant neoplasm of breast; Translations: [FAMILY HX MALIG NEOPLASM OF BREAST]Onset: 01-43-9573CvvrfaxsBoyrcrmd codes; unclassified (1 source)Family history of malignant neoplasm of digestive organs; Translations: [FAM HX MALIG NEOPLASM DIGESTIV ORGN]Onset: 53-51-1449Cverrmlu Thyroid disorders (8 sources)Hypothyroidism, unspecified; Translations: [Hypothyroidism]Onset: 33-19-3321BdorwmmMcssqmslmfvg (3 sources)CONTACT W/AND (SUSP) EXPOS COVID-19; Translations: [CONTACT W/AND (SUSP) EXPOS COVID-19]Onset: 09-72-9962Jugka infection (1 source)COVID-19; Translations: [COVID-19]Onset: 04-15-2022 Past or Other Problems Problem ClassificationProblemDateDocumented DateEpisodic/ChronicImmunizations and screening for infectious disease (1 source)Encounter for screening for human papillomavirus (HPV); Translations: [ENC SCREENING HUMAN PAPILLOMAVIRUS]Onset: 38-23-8360OvzrjphvDzfhe connective tissue disease (3 sources)Adhesive capsulitis of left shoulder; Translations: [Adhesive capsulitis of left shoulder]Onset: 698205-22-8169UzmcmcglPcmgn connective tissue disease (3 sources)Snapping thumb syndrome; Translations: [Trigger thumb, unspecified thumb]Onset: 827321-77-0936RbvtetnkCmdnv lower respiratory disease (3 sources)Persistent cough; Translations: [Persistent cough]Onset: 03-25-2023 16-98-6542OkskthnfYmcrl nervous system disorders (3 sources)Carpal tunnel syndrome; Translations: [Carpal tunnel syndrome, unspecified upper limb]Onset: 12-29-2022 Resolved: 954518-42-5820PtzuyyjLuraq non-traumatic joint disorders (3 sources)Pain in left shoulder; Translations: [Pain in joint, shoulder region] Onset: 681880-24-7041CrwlzcicBqlzs non-traumatic joint disorders (3 sources)Pain of right wrist; Translations: [Pain in right wrist]Onset: 345122-05-6650CipztzglJcdoyqtf codes; unclassified (3 sources)History of colectomy; Translations: [Acquired absence of other specified parts of digestive tract]Onset: 268547-66-5035Rmekxnbu Unclassified (1 source)CONTACT W/AND (SUSP) EXPOS COVID-19; Translations: [CONTACT W/AND (SUSP) EXPOS COVID-19]Onset: 04-19-2022 Results Test NameValueInterpretationReference RangeFacilityMM TOMOSYNTHESIS SCREENING BI on 68-34-[place]681[place], [place] [address] Mammography Report Signed Patient: ELVIA DELGADO MR#: [id number] : 1965 Acct:[id number] Age/Sex: 58 / F ADM Date: 05/24/24 Loc: MAMMO Attending Dr: Dionne Aguirre D.O. Ordering Physician: Dionne Aguirre D.O. Results: Date of Service: 05/24/24 Follow Up: Procedure(s): MM tomosynthesis screening BI Accession Number(s): [id number] cc: Dionne Aguirre D.O.; Abelino Howard M.D. Patient Name: ELVIA DELGADO MR#: [id number] : 1965 Exam Date: 05/24/2024 Ordering Doctor: DR Dionne Aguirre . RADIOLOGY REPORT PROCEDURE: MM TOMOSYNTHESIS [...] breast cancer at age 64. LOCATION: [facility] BREAST COMPOSITION: There are scattered areas [...] BIOPSIED. Dictated by: Taco Franklin MD on 05/24/2024 at 10:25 Approved by: Taco Franklin MD on 05/24/2024 at 10:29 Dictated By: Taco Franklin M.D. Signed By: 05/24/24 1031 DD/ 1030 TD/TT: Tension Worker:TBHRadiology, Radiologist, - 05/24/2024 [place] [address] Mammography Report Signed Patient: ELVIA DELGADO MR#: [id number] : 1965 Acct:[id number] Age/Sex: 58 / F ADM Date: 05/24/24 Loc: MAMMO Attending Dr: Dionne Aguirre D.O. Ordering Physician: Dionne Aguirre D.O. Results: Date of Service: 05/24/24 Follow Up: Procedure(s): MM tomosynthesis screening BI Accession Number(s): [id number] cc: Dionne Aguirre D.O.; Abelino Howard M.D. Patient Name: ELVIA DELGADO MR#: [id number] : 1965 Exam Date: 05/24/2024 Ordering Doctor: DR Dionne Aguirre . RADIOLOGY REPORT PROCEDURE: MM TOMOSYNTHESIS [...] breast cancer at age 64. LOCATION: [facility] BREAST COMPOSITION: There are scattered areas [...] BIOPSIED. Dictated by: Taco Franklin MD on 05/24/2024 at 10:25 Approved by: Taco Franklin MD on 05/24/2024 at 10:29 Dictated By: Taco Franklin M.D. Signed By: 05/24/24 1031 DD/ 1030 TD/TT: Tension Worker: [facility] HospitalRad[facility] Study observation (narrative)[facility] TOMOSYNTHESIS SCREENING BIOrdered By: Radiologist Radiology on 71-91-8137RBWD [employer] Work Phone: Lop 81-10-6927FNvnkhecw: [id number] Received: 12/03/231232 Status: MONET Vallejo Num: [id number] Spec Type: Surgical Subm Dr: Dionne Aguirre Tissues: A Endometrium - Curettings (EMC) Procedures: HE/2, Gross/Micro L4 Age/ Patient Sex Location Account Attending Physician German Delgadoeen 58/F LABELL [id number] Dionne Aguirre SPEC NUM: [id number] RECD: 12/03/23 STATUS: MONET VALLEJO NUM: [id number] KALEY: 12/03/[address]: Dionne Aguirre ENTERED: 12/03/[address] [facility] [address]: González,Lab SPEC TYPE: Surgical DEPT: ZBIGNIEW [...] cm, entirely submitted in A1. CPT Codes 72532 Specimen: [id number] Received: 12/03/23 Status: MONET Vallejo Num: [id number] Spec Type: Surgical Subm Dr: Dionne Aguirre Tissues: A Endometrium - Curettings (EMC) Procedures: Mariaelena ASHLEY/Isaiah L4 Patient: Elvia Delgado [id number] (Continued) Signed (signature on file) James Barth MD 12/06/[address] [place] [address] Physician GroupECG 12-LEADon 52-42-8447[place] [id number] Electrocardiograph Report Signed Patient: ELVIA DELGADO MR#: [id number] : 1965 Acct:[id number] Age/Sex: 58 / F ADM Date: 11/23/23 Loc: PST Attending Dr: Dionne Aguirre D.O. Ordering Physician: Dionne Aguirre D.O. Date of Service: 11/23/23 Procedure(s): ECG 12 lead Accession Number(s): [id number] cc: [facility] Test Date: 2023-11-23 Pat Name: ELVIA DELGADO Department: Room: - Gender: Female Home Health Specialist: : 1965 Requested By: DIONNE AGUIRRE Order Number: [id number] Reading MD: KRIS DUGAN Measurements Intervals Maxwell Rate: 81 P: 57 ID: 168 QRS: 21 QRSD: 82 T: 43 QT: 353 QTc: 410 Interpretive Statements SINUS RHYTHM POSSIBLE LEFT ATRIAL ENLARGEMENT [-0.1mV P WAVE IN V1/V2] Compared to ECG 05/06/2018 09:08:44 No significant changes Electronically Signed On 11-24-2023 23:03:10 EDT by KRIS DUGAN Dictated By: Kris Dugan D.O. Signed By: 11/24/23 2303 DD/ 6 TD/TT: Tension Worker:TBHRadiology, Radiologist, - 11/24/[address] [address] Electrocardiograph Report Signed Patient: ELVIA DELGADO MR#: [id number] : 1965 Acct:[id number] Age/Sex: 58 / F ADM Date: 11/23/23 Loc: PST Attending Dr: Dionne Agiurre D.O. Ordering Physician: Dionne Aguirre D.O. Date of Service: 11/23/23 Procedure(s): ECG 12 lead Accession Number(s): [id number] cc: [facility] Test Date: 2023-11-23 Pat Name: ELVIA DELGADO Department: Room: - Gender: Female Home Health Specialist: : 1965 Requested By: DIONNE AGUIRRE Order Number: [id number] Reading MD: KRIS DUGAN Measurements Intervals Maxwell Rate: 81 P: 57 ID: 168 QRS: 21 QRSD: 82 T: 43 QT: 353 QTc: 410 Interpretive Statements SINUS RHYTHM POSSIBLE LEFT ATRIAL ENLARGEMENT [-0.1mV P WAVE IN V1/V2] Compared to ECG 05/06/2018 09:08:44 No significant changes Electronically Signed On 11-24-2023 23:03:10 EDT by KRIS DUGAN Dictated By: Kris Dugan D.O. Signed By: 11/24/232302 DD/ 6 TD/TT: Tension Worker: CANDACE McbrideECYajaira 12-LEADOrdered By: Radiologist Radiology on 82-01-7800[facility] Work Phone: ECG 12-LEADon 12-09-3132Mzghlavbn Study observation (narrative)CANDACE HealthcareUS PELVIS TRANSVAGINALon 81-47-7859VryAvalon, [place] [address] Ultrasound Report Signed Patient: ELVIA DELGADO MR#: [id number] : 1965 Acct:[id number] Age/Sex: 58 / F ADM Date: 11/08/23 Loc: US Attending Dr: Dionne Aguirre D.O. Ordering Physician: Dionne Aguirre D.O. Date of Service: 11/08/23 Procedure(s): US pelvis transvaginal Accession Number(s): [id number] cc: Dionne Aguirre D.O.; Abelino Howard M.D. [address] [address] Patient Name: ELVIA DELGADO MRN: [id number] date: 1965 Sex: F Assigned Patient Location: US Current Patient Location: US Accession/Order Number: [id number] Exam Date: 11/08/2023 07:00 Report Date: 11/08/2023 [...] M.D. Signed By: 11/08/2334 DD/ 1 TD/TT: Tension Worker:TBHRadiology, Radiologist, MD - 11/08/2023 [place] [address] Ultrasound Report Signed Patient: ELVIA DELGADO MR#: [id number] : 1965 Acct:[id number] Age/Sex: 58 / F ADM Date: 11/08/23 Loc: US Attending Dr: Dionne Aguirre D.O. Ordering Physician: Dionne Aguirre D.O. Date of Service: 11/08/23 Procedure(s): US pelvis transvaginal Accession Number(s): [id number] cc: Dionne Aguirre D.O.; Abelino Howard M.D. The [place] [address] Patient Name: ELVIA DELGADO MRN: [id number] date: 1965 Sex: F Assigned Patient Location: US Current Patient Location: US Accession/Order Number: [id number] Exam Date: 11/08/2023 07:00 Report Date: 11/08/2023 [...] Dictated By: Taco Franklin M.D. Signed By: 11/08/23933 DD/ 1 TD/TT: Tension Worker: [facility] FOR CHILDRENMk HealthcareRadiology Study observation (narrative)[facility] [employer] PELVIS TRANSVAGINALOrdered By: Radiologist Radiology on 06-25-9480AUDL [employer] Work Phone: Outside Colonoscopyon 07-67-8730Gcsdsns Colonoscopy [id number]#1.00TIFHocking Valley Community HospitalReminderson 92-25-0138Jhppekldl From: Arabella Duffy LPN To: GSN - Clinical; Sent: 06/03/2023 14:12:11 EST Show up: 05/02/2033 07:00:00 EDT Subject: colonoscopy recall Due Date/Time: 06/02/2033 07:00:00 EST Reminder/Recall Patient due for screening colonoscopy 06/02/2033.[facility] HospitalInsurance Correspondenceon 48-71-5124Snamgqspf Correspondence [id number]#1.00TIFHocking Valley Community HospitalConsent for Procedure/Surgeryon 65-02-4093Enqvbil for Procedure/Surgery [id number]#1.00[facility] HospitalFacesheeton 08-95-7025Zyhbysepu [id number]#1.00[facility] HospitalAmbulatory Visit Summaryon 84-76-3037Yhgyxhghoc Visit Summary ELVIA DELGADO :1965 Visit Date:05/04/2023 Ambulatory Visit Instructions Your Care Team Attending Physician - JAQUI MEJIA, Oli Catalan Primary Care Physician - JOSE MEJIA, [place] Referring Physician - ELIZABETH BAUTISTA This Is Your Medications List Contact prescribing physician if questions or concerns levothyroxine (levothyroxine 100 mcg (0.1 mg) Tab) rosuvastatin (rosuvastatin 5 mg Tab) Procedures Performed Large bowel resection (05/30/2008), Colonoscopy (12/30/2007), Appendectomy, Arthroscopy of shoulder, Breast augmentation, Carpal tunnel release, Carpal tunnel release, section, section, section, section, Insertion of bilateral silicone gel-filled breast implants,Open repair of glenoid labrum, Release of trigger [...] of DVT (deep vein thrombosis) Hypercholesterolemia Hypothyroidism [facility] HospitalHistorical Records Officeon 09-93-5533Nntzbmhdmf Records Office [id number]#1.00CD:127[facility] HospitalPhysician Referralon 37-97-8613Wyfbvzyfc Referral [id number]#1.00CD:127NormBrecksville VA / Crille HospitalPhysician [id number]#1.00CD:[facility] NormalFlower HospitalOutside Mammographyon 64-73-5862Wqezojt [id number]#1.00CD:127[facility] HospitalPhysician Referralon 89-20-2402Tgllcgvtt Referral [id number]#1.00CD:[address] [place], [place] [address]FREE T3on 68-72-9228GKWB T32.65 pg/mlLNormal2.18-3.98[facility] Comment on above:Performed By: #### FT3 ####[facility] [address] [place], [place] [address]UvDr.Yilan Ramirez T4on 34-92-5534Flsh T4 [Mass/Vol]1.14 ng/dLNormal0.76-1.46[facility] HospitalComment on above: Performed By: #### FT4 #### [facility] [address] [place], [place] [address] Dr. Rossana Mauricio-19 PCR ([facility])on 87-46-6035SDDU-CoV-2 (COVID-19) RNA JAY+probe Ql (Unsp spec)Not detectedNormalNOT DETECTEDThe [facility] Comment on above:Result Comment: When diagnostic testing is negative, the [...] for this test is supported by the Single Pointed Operator of Health and Human Service's declaration that circumstances exist to justify the emergency use of in vitro diagnostics for the detection and/or diagnosis of the virus that causes COVID-19. This EUA will remain in effect for the duration of the COVID-19 declaration justifying emergency of IVDs, unless it is terminated or revoked by the FDA (after which the test may no longer be used).Performed By: #### CVDTBH ####[facility] [address] [place], [place] [address]IvDr. Rossana BarthCovid-19 PCR ([facility])on 61-84-6866IYCN-CoV-2 (COVID-19) RNA JAY+probe Ql (Unsp spec)DetectedCritically abnormalNOT DETECTEDThe [facility] HospitalComment on above:Result Comment: This test is not yet approved or cleared by the [place] FDA. When there are no FDA-approved or cleared tests available, and other criteria are met, FDA can make tests available under an emergency access mechanism called an Emergency Use Authorization (EUA). The EUA for this test is supported by the [place] of Health and Human Service's declaration that circumstances exist to justify the emergency use of in vitro diagnostics for the detection and/or diagnosis of the virusthat causes COVID-19. This EUA will remain in effect for the duration of the COVID-19 declaration ju stifying emergency of IVDs, unless it is terminated or revoked by the FDA (after which the test mayno longer be used).Performed By: #### CVDTBH #### [facility] [address] [place], [place] [address] Dr. Rossana Carver AUTO DIFFon 29-04-0079TEPU #0.1 103/ulNormal0.0-0.1The [facility] HospitalComment on above:Performed By: #### CBC #### [facility] [address] [place] [address] Rossana BarthBasophils/100 WBC (Bld)1.1 %Normal0.2-2.0[facility] Comment on above:Performed By: #### CBC #### [facility] [address] [place] [address] Dr. Rossana Patel #0.1 103/ulNormal0.0-0.7The [facility] HospitalComment on above: Performed By: #### CBC #### [facility] [address] [place] [address] Dr. Rossana Barcenasosinophils/100 WBC (Bld)2.6 %Normal0.9-7.0[facility] Comment on above:Performed By: #### CBC #### [facility] [address] [place] [address] Dr. Rossana Barcenasrythrocyte distribution width (RBC) [Ratio]12.5 %Pyeeww60.0-15.0 The [facility] HospitalComment on above:Performed By: #### CBC #### [facility] [address] [place] [address] Dr. Rossana BarthHematocrit (Bld) [Volume fraction]40.2 %Tixnit47.0-48.0The [facility] HospitalComment on above:Performed By: #### CBC #### [facility] [address] [place] [address] Dr. Rossana BarthHemoglobin (Bld) [Mass/Vol]13.3 g/yTGniwpu68.0-16.0The [facility] HospitalComment on above:Performed By: #### CBC #### [facility] [address] [place] [address] Dr. Rossana Thrasher #0.01 10e3/ulNormal0.00-0.03The [facility] HospitalComment on above:Performed By: #### CBC #### [facility] [address] [place] [address] Dr. Rosasna Thrasher %0.2 %Normal0.0-0.5The [facility] HospitalComment on above: Performed By: #### CBC #### [facility] [address] [place] [address] Dr. Rossana Castaneda #2.1 103/ulNormal1.2-3.8The [facility] HospitalComment on above:Performed By: #### CBC #### [facility] [address] [place] [address] Dr. Rossana Arcehocytes/100 WBC (Bld)44.7 %Aaeyan19.5-60.0The [facility] HospitalComment on above:Performed By: #### CBC #### [facility] [address] [place] [address] Dr. Rossana Duong DIFF REQNONormalThe Flower HospitalComment on above: Performed By: #### CBC #### [facility] [address] [place] [address] Dr. Rossana Bolanos (RBC) [Entitic mass]32.4 tqSulwav34.7-34.0The [facility] HospitalComment on above:Performed By: #### CBC #### [facility] [address] [place] [address] Dr. Rossana Ryan (RBC) [Mass/Vol]33.1 g/eWBjibuh13.9-35.2The [facility] HospitalComment on above:Performed By: #### CBC #### [facility] [address] [place] [address] Dr. Rossana Ryan (RBC) [Entitic vol]98.0 fALvvdch25.0-99.0The [facility] HospitalComment on above:Performed By: #### CBC #### [facility] [address] [place] [address] Dr. Rossana Ayers #0.5 103/ulNormal0.3-0.8The [facility] HospitalComment on above:Performed By: #### CBC #### [facility] [address] [place] [address] Dr. Rossana Cabelloocytes/100 WBC (Bld)9.8 %Normal1.7-12.0[facility] Comment on above:Performed By: #### CBC #### [facility] [address] [place] [address] Dr. Rossana FigueroaUT #2.0 103/ulNormal1.4-6.5The [facility] HospitalComment on above:Performed By: #### CBC #### [facility] [address] [place] [address] [address] Rossana Figueroautrophils/100 WBC (Bld)41.6 %Critically low43.0-75.0The [facility] HospitalComment on above:Performed By: #### CBC #### [facility] [address] [place] [address] Dr. Rossana BarthPlatelet mean volume (Bld) [Entitic vol]9.1 fLCritically low 9.5-13.5The [facility] HospitalComment on above:Performed By: #### CBC #### [facility] [address] [place] [address] Dr. Rossana BarthPLT305 103/iiIesdbx143-968Rjr [facility] HospitalComment on above: Performed By: #### CBC #### [facility] [address] [place] [address] Dr. Rossana BarthRBC4.10 106/ulCritically low4.20-5.40The [facility] HospitalCompont[facility] on above:Performed By: #### CBC #### [facility] [address] [place] [address] Dr. Rossana BarthWBC4.7 103/ulNormal4.0-11.0The [facility] HospitalCompontiac [facility] on above: Performed By: #### CBC #### [facility] [address] [place] [address] Dr. Rossana BarthGLYCOHEMOGLOBIN A1Con 36-60-4764MJX RECOMMENDATIONSEE BELOWNormal [facility] HospitalCompont[facility] on above:Result Comment: ADA RECOMMENDED LIMIT 4.0 - 6.0 ADA THERAPEUTIC TARGET < 7.0 ACTION SUGGESTED > 7.0Performed By: #### A1C #### [facility] [address] [place] [address] Dr. Rossana BarthGlucose [Mass/Vol]111 mg/dLNormalThe Flower HospitalComment on above:Performed By: #### A1C #### [facility] [address] [place] [address] [address] Rossana BarthHbA1c (Bld) [Mass fraction]5.5 %Normal4.5-6.2[facility] on above:Performed By: #### A1C #### [facility] [address] [place] [address] Dr. Rossana HsiehID PROFILEon 11-36-6512HKXN-HDL RATIO NORMSEE [facility] on above:Result Comment: 3.3 - 4.4 LOW RISK 4.4 - 7.1 AVERAGE RISK 7.1 - 11.0 MODERATE RISK >11.0 HIGH RISKPerformed By: #### TSH, LIPID, CMP #### [facility] [address] [place] [address] Dr. Rossana Causeyesterol [Mass/Vol]257 mg/dLCritically high<=200The [facility] on above:Performed By: #### TSH, LIPID, CMP #### [facility] [address] [place] [address] Dr. Rossana Causeyesterol in HDL [Mass/Vol]96 mg/dLCritically yyra11-59Ibk [facility] on above:Performed By: #### TSH, LIPID, CMP #### [facility] [address] [place] [address] Dr. Rossana Causeyesterol in LDL [Mass/Vol]133.2 mg/dLAvita Health System Galion HospitalCompontiac general hospital on above:Performed By: #### TSH, LIPID, CMP #### [facility] [address] [place] [address] Dr. Rossana Schwartz.total/Cholesterol in HDL [Mass ratio]2.7 {ratio} NormalThe [facility] on above:Performed By: #### TSH, LIPID, CMP #### [facility] [address] [place] [address] Dr. Rossana BarthHDL NORMAL> or = 60 mg/dl - LOW CARDIOVASCULAR RISK <40 mg/dl - HIGH CARDIOVASCULAR RISKAvita Health System Galion HospitalComment on above:Performed By: #### TSH, LIPID, CMP #### [facility] [address] [address] [address] Rossana BarthLDL CALC NORMALSEE BELOWAvita Health System Galion HospitalComment on above:Result Comment: <100 mg/dl OPTIMAL 100 - 129 mg/dl NEAR OR ABOVE OPTIMAL 130 - 159 mg/dl BORDERLINE HIGH 160 - 189 mg/dl HIGH >190 mg/dl VERY HIGH Performed By: #### TSH, LIPID, CMP #### [facility] [address] [address] [address] Rossana BarthTriglyceride [Mass/Vol]139 mg/dLNormal<=150[facility] Comment on above:Performed By: #### TSH, LIPID, CMP #### [facility] [address] [address] [address] Rossana BarthVLDL CALC27.8 mg/dLAvita Health System Galion HospitalComment on above: Performed By: #### TSH, LIPID, CMP #### [facility] [address] [address] [address] Rossana BarthMG MAMM SCREEN 3D ANA CADon 86-84-1292XI MAMM SCREEN 3D ANA CAD Patient: ELVIA DELGADO Exam Date: 04/07/2022 : 1965 Gender:F Ordering : DR DIONNE AGUIRRE . Admission #: [id number] Family : DR DELROY GONSALES . Order #: [id number] CLICK HERE TO VIEW EXAM RADIOLOGY REPORT [...] breast cancer at age 64. LOCATION: [facility] BREAST COMPOSITION: Scattered areas fibroglandular density. [...] by: Taco Franklin MD on 04/07/2022 at 10:11Av[facility] HospitalPROF 14(COMP METB)on 41-72-3532Frdpdcr [Mass/Vol]4.1 g/dLNormal3.4-5.0The [facility] HospitalComment on above:Performed By: #### TSH, LIPID, CMP #### [facility] [address] [place] [address] Dr. Rossana BarthAlbumin/Globulin [Mass ratio]1.3 {ratio}NormalThe [facility] HospitalComment on above:Performed By: #### TSH, LIPID, CMP #### [facility] [address] [place] [address] Dr. Rossana Shin [Catalytic activity/Vol]70 U/GRcurme38-889Cul [facility] HospitalComment on above:Performed By: #### TSH, LIPID, CMP #### [facility] [address] [place] [address] Dr. Rossana Haddad [Catalytic activity/Vol]57 U/CRnobmk11-49Spa [facility] HospitalComment on above:Performed By: #### TSH, LIPID, CMP #### [facility] [address] [place] [address] Dr. Rossana Resendez gap [Moles/Vol]9.4 mmol/LNormalThe [facility] HospitalComment on above:Performed By: #### TSH, LIPID, CMP #### [facility] [address] [place] [address] Dr. Rossana Burnham [Catalytic activity/Vol]25 U/SCqoazh71-67Lky [facility] HospitalComment on above:Performed By: #### TSH, LIPID, CMP #### [facility] [address] [place] [address] Dr. Yilan ChangBilirubin [Mass/Vol]0.4 mg/dLNormal0.2-1.0[facility] Comment on above:Performed By: #### TSH, LIPID, CMP #### [facility] [address] [address] [address] Rossana BarthCalcium [Mass/Vol]9.3 mg/dLNormal8.5-10.1[facility] Comment on above:Performed By: #### TSH, LIPID, CMP #### [facility] [address] [address] [address] Rossana BarthChloride [Moles/Vol]103 mmol/ALxhbyc22-558Ocx [facility] Comment on above:Performed By: #### TSH, LIPID, CMP #### [facility] [address] [place] [address] Dr. Rossana BarthCO2 [Moles/Vol]30.6 mmol/ECwsjks94.0-32.0[facility] Comment on above:Performed By: #### TSH, LIPID, CMP #### [facility] [address] [place] [address] Dr. Rossana BarthCreatinine [Mass/Vol]0.83 mg/dLNormal0.55-1.02The [facility] HospitalComment on above:Performed By: #### TSH, LIPID, CMP #### [facility] [address] [place] [address] Dr. Rossana BarcenasGFR-AF CHINESE>60Normal>=60The [facility] HospitalComment on above:Performed By: #### TSH, LIPID, CMP #### [facility] [address] [place] [address] Dr. Rossana BarcenasGFR-NON AF CHINESE>60Normal>=60The [facility] HospitalComment on above:Performed By: #### TSH, LIPID, CMP #### [facility] [address] [place] [address] Dr. Rossana BarthGlobulin (S) [Mass/Vol]3.2 g/dLNormalThe [facility] HospitalComment on above:Performed By: #### TSH, LIPID, CMP #### [facility] [address] [address] [address] Rossana BarthGlucose [Mass/Vol]97 mg/tWJbweip78-714Muo [facility] Comment on above:Performed By: #### TSH, LIPID, CMP #### [facility] [address] [address] [address] Rossana BarthPotassium [Moles/Vol]4.0 mmol/LNormal3.5-5.1[facility] Comment on above:Performed By: #### TSH, LIPID, CMP #### [facility] [address] [address] [address] Rossana BarthProtein [Mass/Vol]7.3 g/dLNormal6.4-8.2[facility] Comment on above:Performed By: #### TSH, LIPID, CMP #### [facility] [address] [place] [address] Dr. Rossana BarthSodium [Moles/Vol]139 mmol/GOqszrp068-401Bvu [facility] Comment on above:Performed By: #### TSH, LIPID, CMP #### [facility] [address] [address] [address] Rossana BarthUrea nitrogen [Mass/Vol]12.0 mg/dLNormal7.0-18.0The [facility] HospitalComment on above:Performed By: #### TSH, LIPID, CMP #### [facility] [address] [address] [address] Rossana BarthUrea nitrogen/Creatinine [Mass ratio]14.5 mg/mgNormalThe [facility] HospitalComment on above:Performed By: #### TSH, LIPID, CMP #### [facility] [address] [place] [address] Dr. Rossana Martinez 01-63-9920VOI3.022 uIU/mLNormal0.358-3.740The [facility] HospitalComment on above:Performed By: #### TSH, LIPID, CMP #### [facility] [address] [place] [address] Dr. Rossana BarthXR DEXA BONE DENSITYon 63-84-3838VK DEXA BONE DENSITYEXAMINATION: XR DEXA BONE DENSITY, 04/07/2022 7:45 AM EDT HISTORY: [...] Electronically authenticated by: TACO FRANKLIN Date: 2022-04-07 09:24[facility] ACOG PANEL 2: 30 to 65on 03-02-2022..NormalThe [facility] HospitalCompontiac general hospital on above:Result Comment: Performed at: WBPerformed By: #### [id number] #### [facility] [address] [place] [address] Dr. Rossana Reyna Gdln ACOG Navwpzu88-96BbpiwlGaaChildren's Hospital for RehabilitationComment on above:Performed By: #### [id number] #### [facility] [address] [place] [address] Dr. Rossana BarthDIAGNOSIS:CommentLicking Memorial Hospital on above: Result Comment: NEGATIVE FOR INTRAEPITHELIAL LESION OR MALIGNANCY. Performed at: WBPerformed By: #### [id number] #### [facility] [address] [place] [address] Dr. Rossana BarthHPV AptimaNegativeNormalNegativeChillicothe Hospital on above:Result Comment: This nucleic acid amplification test detects fourteen high-risk HPV types (16,18,31,33,35,39,45,51,52,56,58,59,66,68) without differentiation. Performed at: =GPerformed By: #### [id number] #### [facility] [address] [place] [address] Dr. Rossana BarthMethodology:CommentLicking Memorial Hospital on above: Result Comment: This liquid based ThinPrep(R) pap test was screened with the use of an image guided system. Performed at: WBPerformed By: #### [id number] #### [facility] [address] [place] [address] Dr. Rossana BarthNote:CommentLicking Memorial Hospital on above:Result Comment: The Pap smear is a screening test designed to aid in the detection of premalignant and malignant conditions of the uterine cervix. It is not a diagnostic procedure and should not be used as the sole means of detecting cervical cancer. Both false-positive and false-negative reports do occur. . Performed at: WBPerformed By: #### [id number] #### [facility] [address] [address] [address] Rossana BarthPerformed by:CommentNoCleveland Clinic Children's Hospital for Rehabilitation on above: Result Comment: Hay Patel Biomed Tech (ASCP) Performed at: WBPerformed By: #### [id number] #### [facility] [address] [place] [address] Dr. Rossana BarthSpecimen adequacy:CommentLicking Memorial Hospital on above:Result Comment: Satisfactory for evaluation. Performed at: WBPerformed By: #### [id number] #### [facility] [address] [place] [address] Dr. Rossana BarthOperative Reporton 27-50-0648Yuiezlthu ReportSACMC HEALTH[facility] OPERATIVE RECORD ELVIA DELGADO [facility] [id number] [facility] OSCAR SORIANO MD [id number] SURGEON: Oscar Soriano MD DATE OF OPERATION: 06/23/2019 PREOPERATIVE DIAGNOSIS: Bilateral mammary hypoplasia, status post previous saline breast augmentation subpectoral. POSTOPERATIVE DIAGNOSIS: Bilateral mammary hypoplasia, status post previous saline breast augmentation subpectoral. PROCEDURE: Bilateral saline breast implant explantation, intact CORPORATE TUTOR: Priyanka Santacruz PA-C. ANESTHESIA: General LMA. ESTIMATED [...] in satisfactory condition. OSCAR SORIANO MD RS/Bridgette /[id number] [facility] Vital Signs Date TimeVital SignValuePerforming QgmdjgwmnCqnlfdbf50-91-5935 15:20-0400Blood Pressure LocationMichael NILL [facility] Yuwekgru87-28-5492 15:20-0400Diastolic blood ympepbip31 mm[Hg]Oli NILL [facility] Ptnlkncd48-47-0778 15:20-0400Heart rate 80 /minMichael NILL [facility] Jzmtosvg28-64-0519 15:20-0400 Respiratory rate16 /minMichael NILL [facility] Wlbdspxk03-32-5557 15:20-0400Systolic blood jjnoptaa333 mm[Hg]Oli NILL [facility] Adfchmij25-69-2302 16:35-0400Body .48 cmSfatuma Ayon Other noLIKECHARITY Other 03-13-2023 16:35-0400Body mass index (BMI) [Ratio]25.6 kg/q0Ndguuynodfady Ayon Other noLIKECHARITY Other 03-13-2023 16:35-0400Body rogdzdtavea37.9 [degF] Esperanza Ayon Other [facility] Other 03-13-2023 16:35-0400Body aduilo13.5 kgStfady Ayon Other [facility] Other 03-13-2023 16:35-0400Respiratory rate18 /minSfatuma Ayon Other [facility] Other 03-13-2023 16:35-0281TvP3% (BldA) [Mass fraction]95 % Esperanza Ayon Other NoNano[employer] Other Encounters Encounter DateEncounter TypeCare ProviderFacilityStart: 05-24-2024 End: 96-34-7282Zlotwdqrs Result EncounterCorey Timothy DO Work Phone: noms External Department UnsolicitedStart: 05-24-2024 End: 24-17-5683Vsqvixgvc Result EncounterCorey Timothy DO Work Phone: noms External Department UnsolicitedStart: 12-23-2023 End: 12-90-2394ndglakrccgUEKHT FAZIONot AvailableStart: 12-03-2023 End: 68-37-9163llrvogtturRkihe FazioFacility:[facility] Start: 12-03-2023 End: 75-24-3591ykfnsyyihpYqhth Timothy Work Phone: [facility] Work Phone: Start: 12-03-2023 End: 67-60-5929Kpfushqf ReferredCorey Timothy Work Phone: [facility]-LAB Path Spec [facility] HospStart: 11-23-2023 End: 55-04-2559Xhosowpbd Result EncounterCorey Timothy DO Work Phone: noms External Department UnsolicitedStart: 11-23-2023 End: 10-05-6693Rllolhwsx Result EncounterCorey Timothy DO Work Phone: noms External Department UnsolicitedStart: 11-08-2023 End: 21-43-4297Ftirvkgfm Result EncounterCorey Timothy DO Work Phone: noms External Department UnsolicitedStart: 11-08-2023 End: 02-04-8562Bsporyjgt Result EncounterCorey Timothy DO Work Phone: noms External Department UnsolicitedStart: 11-04-2023 End: 00-01-4101rxflzkfrfjVHRKM FAZIONot AvailableStart: 06-02-2023 End: 01-14-0585xohlgmtwwrAvtmaqk R NILLFacility::[id number]: 05-04-2023 End: 17-45-2535tfzrvndxtgFrpasew R NILLFacility:[facility] CampusueStart: 05-04-2023 End: 20-95-6520Wipyhky encounter procedureMichael R NILL General Surgery Nill/Said González Start: 27-94-3903jcutkagcuxVpakfbn NILLFacility:[facility] CampusueStart: 75-88-9885Bmcqey outpatient new 20 minutesStepanni AyonDIGNITY HEALTH [facility] Urgent Care ClydeStart: 09-28-2022 End: 89-93-5703uqrxkmqwfpGaowomrry Breault Other [facility] Cannae Other Start: 07-09-2022 End: 43-43-8406gcxyhzreftNK KIM E KNIGHTFacility:E0Jttzy: 05-22-3687Atxohwrbx for gynecological examination (general) (routine) without abnormal findingsDR DIONNE FAZIOThe [facility]urd HospitalStart: 04-19-2022 End: 09-43-0227xtxhcjxruaRG KIM E KNIGHTFacility:D4Gjidg: 04-12-2022 End: 66-82-5497alttzgpjofEO KIM E KNIGHTFacility:V5Ydcjn: 04-07-2022 End: 34-15-6240zxnrdoguwwJM DIONNE FAZIOFacility:R6Ltclc: 02-25-2022 End: 21-58-0063dqgkguxibhQO DIONNE FAZIOFacility:H1 Procedures DateProcedureProcedure DetailPerforming ClinicianStart: 33-86-7076SO TOMOSYNTHESIS SCREENING BICorey Timothy DO Work Phone: Start: 07-08-2445QhnzekaispeNhrer Timothy DO Work Phone: Start: 15-37-4476HMA 12-LEADCorey Timothy DO Work Phone: Start: 60-63-3884VN PELVIS TRANSVAGINALCorey Timothy DO Work Phone: Start: 38-91-5126Sidoata of decompression of median nerveHistory of carpal tunnel release of both wristsCorey Timothy DO Work Phone: Start: 05-89-0483Uecul intestine excisionMichael NILL Start: 22-68-5476WyywjlwvefdWkjruxt NILL AppendectomyMichael NILL Arthroscopy of shoulderMichael NILL Augmentation mammoplastyMichael NILL Bilateral implant of silicone into breastMichael NILL Cesarean sectionMichael NILL Decompression of median nerveMichael NILL Ligation of fallopian tubeMichael NILL Open repair of glenoid labrumMichael NILL Release of trigger thumbMichael NILL Removal of intact mammary implant, bilateralMichael NILL Rupture of tendon of biceps (disorder)Oli NILL Plan of Treatment DateCare ActivityDetailAuthorStart: 03-90-8942Unjkqqdbw for malignant neoplasm of breastMammogramNOMS HealthcareStart: 64-67-1224Ztyyzunkj vaccinationInfluenza Vaccine (#1)[facility] HealthcareStart: 51-72-2893Eshzqbhxj for malignant neoplasm of cervixNOMS HealthcareStart: 19-07-2172Kgqmfdsls for malignant neoplasm of cervix Pap SmearNOMD Healthcare Immunizations Immunization DateImmunizationNotesCare TbqlzhjfQtgxcfwf07-44-8444APCA-MaE-7 (COVID-19) mRNA BNT-162b2 vaxMichael NILL [facility] Qmichxsn18-51-1454XJQJ-OaD-2 (COVID-19) mRNA BNT-162b2 vaxMichael NILL [facility] Aylsnsvj73-95-0538cpoghlnc influenza, intradermal, preservative freeCorey Timothy DO Work Phone: [facility] HospitalQmgxhkgrcp73-42-3983nshrudtwt virus vaccine, unspecified formulationCorey Timothy DO Work Phone: [facility] HospitalCasyqrjbiu73-68-5483pfzasjrj influenza, intradermal, preservative freeCorey Timothy DO Work Phone: [facility] Payers DatePayer CategoryPayerPolicy [id number] [place] [employer] ShieldBCBS Member Subscriber Plan / Payer (Effective 2022-Present) Name: Tran Delgado Member ID: [id number] Relation to Subscriber: Self Name: Tran Delgado Subscriber ID: [id number] Payer ID: Not on file Type: Not on file Address: [facility] [id number] [place] [id number] [employer] [id number] 2..840.6.09768[id number] [id number] 2.16.840.1.495865.3.57[id number] 2.16.840.1.986238.3.57[id number] 2.16.840.1.232860.3.57[id number] 2..840.1.998914.3.57[id number] 2.16.840.1.207930.3.57[id number] 2..840.1.395324.3.57[id number] 2..840.1.441666.3.57[id number] 2..840.1.479214.3.57[id number] 2..840.1.382721.3.579.2.1259 Social History DateTypeDetailFacilityStart: 12-28-2022 End: 00-55-3344Xae [facility] CenterStart: 03-25-2023 End: 31-20-1240Tvylfvt smoking statusNever smoked tobacco (finding)[facility]vueStart: 77-79-7246Tmtpras smoking statusNeverGeneral Surgery BellevueStart: 85-46-4676Tvx Assigned At [facility] CenterStart: 73-08-1212Ulnzfae use and exposureSmokeless tobacco non-userNOMS HealthcareStart: 11-04-2023 End: 96-76-2922Wjukjfbgj beverage intakeCurrent drinker of alcohol (finding)[facility] HealthcareStart: 12-28-2022 End: 11-75-8021Mvezpujvm beverage intakeNOMD HealthcareWithin the last year, have you been afraid of your partner or ex-partner?NoNOMS HealthcareAre you now , , , , never or living with a partner? MarriedNOMS HealthcareHow often do you have a drink containing alcohol?2-3 times a weekNOMD HealthcareHow many standard drinks containing alcohol do you have on a typical day?3 or 4NOMS HealthcareHow often do you have 6 or more drinks on 1 occasion?Less than monthlyNOMS HealthcareDo you feel stress - tense, restless, nervous, or anxious, or unable to sleep at night because yourmind is troubled all the time - these days [OSQ]Only a littleNOMD Healthcare(I/We) worried whether (my/our) food would run out before (I/we) got money to buy more.Never trueNOMD HealthcareStart: 06-73-3736Ypr assigned at birthNot on [facility] [place] Functional Status UdeoYfsfhxcuxzSuvikhAjpkzzuj68-30-7721Bbatmhwitf StatusN/AGeneral Surgery [facility] Clinical Note 05-04-2023 Note Date & UpjgBhzcKihubcjd44-16-5525 NoteChief Complaint consultation for rectal bleeding HPI Staff 57 year old female presents on consultation from Elizabeth JO for rectal bleeding. Reports one week episode of rectal bleeding at the end of February. Reports this was bright red and only with bowelmovements. Denies rectal pain. At that time she was experiencing lower abdominal pain. Denies nausea or vomiting. Was afebrile. Reports abdominal pain and rectal bleeding resolved spontaneously. Lastcolonoscopy completed 12/2007 with diverticulosis and hemorrhoids. History [...] 4 and tubal ligation; no asa or NSAIDuse, no SBE prophylaxis; no fmhx of GI malignancy or IBD; no tobacco use. Review of Systems PHQ Score Initial Depression Screen Score: 0 ROS - Provider Constitutional: no fever, no sweats, no weight loss. Eyes: no glasses, no blurred vision, no visual loss. ENMT: no dentures, no hoarseness, no swallowing difficulties, no hearing loss, no ear infection(s),no nose bleeds. Cardiovascular: normal blood pressure, no [...] section, Insertion of bilateral silicone gel-filled breast implants,Open repair of glenoid labrum, Release of trigger [...] History Diabetes mellitus ty (more content not included)...[facility] Comment on above:Result Comment: Electronically Signed By: JAQUI MEJIA, Oli Mark\Date and Time Signed: 05/04/23 15:51 EDT Evaluation note 09-28-2022 Note Date & SdliCqqzKwkwjimi71-52-2611 Evaluation note* Encounter Date Diagnosis Assessment Notes Treatment Notes Treatment Clinical Notes Sep, Bronchitis (ICD-10 - J40) Take [...] weeks for the cough to go away [facility] Other Evaluation + Plan note Note Date & TypeNoteFacilityEvaluation + Plan note No data available for this section General [facility] Evaluation note Note Date & TypeNoteFacilityEvaluation noteNo assessment information available [facility] Work Phone: History general Narrative - Reported Note Date & TypeNoteFacilityHistory general Narrative - Reported* Type Description Date Medical History Hypothyroidism Medical Historyhigh cholesterolSurgical HistoryRetinal surgery [facility] Other Hospital Discharge instructions Note Date & TypeNoteFacilityHospital Discharge instructions No data available for this section [facility] Progress note Note Date & TypeNoteFacilityProgress note No data available for this section [facility] Summary Purpose Family History Relationship Condition Age at Onset Recorded Date/T taiwo father Diabetes mellitus Unknown DeceasedUnknownHeart diseaseUnknown Advance Directives No Advanced Directives Records FoundNo Advanced Directives Records FoundNo Advanced Directives Records FoundNo Advanced Directives Records FoundNo Advanced Directives Records Found Additional Source Comments INFORMATION SOURCE (unrecogn ized section and content) DATE CREATED AUTHOR 06/27/2019 [facility] DATE CREATED AUTHOR AUTHOR'S ORGANIZ ATION 07/16/2022 [facility] DATE CREATED AUTHOR AUTHOR'S ORGANIZ ATION 06/19/2023 [facility] DATE CREATED AUTHOR AUTHOR'S ORGANIZ ATION 12/09/2023 [facility] DATE CREATED AUTHOR AUTHOR'S ORGANIZ ATION 12/24/2023 [facility] EPIC REASON FOR VISIT (unrecogniz ed section and content) CONGESTION, COUGH Patient Care team informatio n (unrecognized section and content) Team Status: Inactive Member Role Status Dates Dionne Aguirre Attending Provider Active Start: Ma y 2023 End: December 03, 2023Team MemberRelationshipSpecialtyStart DateEnd Date Ne Garcia MD [address] [facility] [address] [place] [address] PCP - [facility]12/28/22 Oleksandr Elliott MD [address] [facility] [address] [place] [address] PCP - [facility]02/17/2312 Goals (unrecognized section and content) Goals may [...] BE BASED ON THE PRIMARY CLINICAL RECORDS. [employer] [facility]. provides no warranty or guarantee of the accuracy or completeness of information in this document.
[2025-06-21 09:10] LABS: Hematocrit 41.7 % (36.0-48.0); Hemoglobin 14.3 g/dL (12.0-16.0); Immature Granulocytes Abs Auto 0.00 10^3/uL (0.00-0.03); Immature Granulocytes Pct Auto 0.0 % (0.0-0.5); Lymphocytes Absolute Auto 2.2 10^3/uL (1.2-3.8); Mean Corpuscular HGB Conc 34.3 g/dL (29.9-35.2); Mean Corpuscular Hemoglobin 33.2 pg (26.7-34.0); Mean Corpuscular Volume 96.8 fL (81.0-99.0); Platelet Count 265 10^3/uL (150-450); Red Blood Count 4.31 10^6/uL (4.20-5.40); White Blood Count 4.9 10^3/uL (4.0-11.0)
[2025-06-21 09:50] LABS: Alanine Aminotransferase 66 U/L (14-59); Albumin Globulin Ratio 1.2; Albumin Level 3.9 g/dL (3.4-5.0); Alkaline Phosphatase 71 U/L (46-116); Anion Gap 11.9; Aspartate Amino Transferase 27 U/L (15-37); Blood Urea Nitrogen 11.0 mg/dL (7.0-18.0); Calcium 9.2 mg/dL (8.5-10.1); Carbon Dioxide 29.4 mmol/L (21.0-32.0); Chloride 106 mmol/L (98-107); Cholesterol 279 mg/dL (<=200); Estimated GFR (African America >60 (>=60 mL/min/1.73m^2); Estimated GFR (Non-African Ame >60 (>=60 mL/min/1.73m^2); Free T3 3.23 pg/mL (2.18-3.98); Globulin 3.3 g/dL; Glucose 103 mg/dL (74-106); HDL Cholesterol 86 mg/dL (40-60); Potassium 4.3 mmol/L (3.5-5.1); Sodium 143 mmol/L (136-145); Thyroid Stimulating Hormone 0.014 uIU/mL (0.358-3.740); Total Protein 7.2 g/dL (6.4-8.2); Triglycerides 123 mg/dL (<=150); VLDL CHOLESTEROL 24.6 mg/dL
== END 2025-06-21 08:33 | disposition home or self-care (01) ==
LOC: LAB 08:34
PROVIDERS: PCP Family Medicine; Visit Provider Family Medicine
DX: Z00.00 Encounter for general adult medical examination without abnormal findings (principal)
CPT/HCPCS: 36415; 80053; 80061; 83036; 84436; 84443; 84481; 85025